=== PATIENT | female | born 1935 | race Caucasian/White ===

== ENCOUNTER 2019-02-11 16:14 | Inpatient (IN) | payer MEDICARE, OTHER ==
[2019-02-11] MEDS ORDERED: SODIUM CHLORIDE 0.9% 1,000 ML IV STA (16:54)
[2019-02-11] MEDS ORDERED: ASPIRIN 81 MG PO STA (16:54)
--- NOTE | 2019-02-11 16:57 | ED ---
General Adult HPI - General Chief complaint: Neuro Symptoms/Deficit Stated complaint: facial droop, rt sided weakness Time Seen by Provider: 02/11/19 16:30 Source: patient Mode of arrival: wheelchair Limitations: no limitations - History of Present Illness Initial comments: Dictation was produced using [employer] dictation software. please excuse any grammatical, word or spelling errors. Chief Complaint: 84-year-old female with no prescription and past medical history presents with strokelike symptoms. History of Present Illness: Chin is an 84-year-old female. She denies any significant comorbidities. She states that she was at home. Approximately 2:45 PM patient noted that she had severe right hand weakness and right facial droop. Her family member came over noted that she had right facial droop. She was also some drooling and dysarthria. There were concerns of stroke so they brought patient to the emergency department while en route to the emergency department she reports that her symptoms completely abated. She denies any history of CVA. Patient feels well at the moment however feels slightly tired. She's been tired over the last 2-3 days. Patient currently denies any neuro deficits. The ROS documented in this emergency department record has been reviewed and confirmed by me. Those systems with pertinent positive or negative responses have been documented in the HPI. All other systems are other negative and/or noncontributory. PHYSICAL EXAM: General Impression: Alert and oriented x3, not in acute distress HEENT: Normocephalic atraumatic, extra-ocular movements intact, pupils equal and reactive to light bilaterally, mucous membranes moist. Cardiovascular: Heart regular rate and rhythm, S1&S2 audible, no murmurs, rubs or gallops Chest: Lungs clear to auscultation bilaterally, no rhonchi, no wheeze, no rales Abdomen: Bowel sounds present, abdomen soft, non-tender, non-distended, no organomegaly Musculoskeletal: Pulses present and equal in all extremities, no peripheral edema Motor: no focal deficits noted Neurological: CN II-XII grossly intact, no focal motor or sensory deficits noted, no aphasia, also dysarthria, mild sales representative rural power weakness to the right hand compared to the left however no right upper extremity drift. Skin: Intact with no visualized rashes Psych: Normal affect and mood ED course: 84-year-old female presents clinical presentation concerning for transient ischemic attack. Patient's NIH currently 0 upon arrival are within acceptable limits. Neuro exam is negative. Patient has ever so slightly discrepancy of sales representative rural power strength in the right compared to the left. Given that patient has NIH of 0 and not reporting any symptoms could stroke is not paged. Stroke workup is ordered.EKG interpretation: Ventricular rate 59, sinus bradycardia, when necessary 136, QS 90, QTC 374. There is significant T-wave inversions noted to the anterior precordial leads. There appears to be some form of heart block. EKG was obtained with concerns for heart block. Cardiolog y was contacted immediately. Discussed patient case with Dr. Murdock who reviewed EKG at bedside. Said he does not appear to be heart block. Laboratory evaluation obtained. Leukocytosis of 13.0 and secondary to stress. Coag panel unremarkable. Metabolic panel shows no acute processes. Urinalysis consistent with urinary tract infection. Computed tomography scan of the head shows no intracranial bleed or any acute intracranial processes. Chest x-ray is nonacute. Patient administered aspirin. She'll be admitted for transient ischemic attack. Patient 1 g of Rocephin for urinary tract infection. Cardiology endorses that patient's EKG is not reflective of a heart block Dr. Murdock had no recommendations. Neurology will consult for transient ischemic attack. Discussed patient case with some physician Dr. Lakhani who is willing to accept admission. - Related Data Home Medications Medication Instructions Recorded Confirmed No Known Home Medications 02/11/19 02/11/19 Allergies Allergy/AdvReac Type Severity Reaction Status Date / Time Sulfa (Sulfonamide Allergy Unknown Verified 02/11/19 17:48 Antibiotics) Review of Systems ROS Statement: Those systems with pertinent positive or pertinent negative responses have been documented in the HPI. ROS Other: All systems not noted in ROS Statement are negative. Past Medical History Past Medical History: No Reported History History of Any Multi-Drug Resistant Organisms: None Reported Past Surgical History: Appendectomy, Hernia Repair, Hysterectomy Past Psychological History: No Psychological Hx Reported Smoking Status: Current every day smoker Past Alcohol Use History: None Reported Past Drug Use History: None Reported General Exam Limitations: no limitations Course Vital Signs 02/11/19 16:21 Temperature 98.3 F Pulse Rate 65 Respiratory 16 Rate Blood Pressure 149/78 O2 Sat by Pulse 93 L Oximetry Medical Decision Making - Lab Data Result diagrams: 02/11/19 16:40 02/11/19 16:40 Lab Results 02/11/19 02/11/19 02/11/19 Range/Units 16:40 16:40 16:40 WBC 13.0 H (3.8-10.6) k/uL RBC 4.88 (3.80-5.40) m/uL Hgb 14.3 (11.4-16.0) gm/dL Hct 45.5 (34.0-46.0) % MCV 93.3 (80.0-100.0) fL MCH 29.3 (25.0-35.0) pg MCHC 31.4 (31.0-37.0) g/dL RDW 13.2 (11.5-15.5) % Plt Count 341 (150-450) k/uL Neutrophils % 82 % Lymphocytes % 5 % Monocytes % 8 % Eosinophils % 2 % Basophils % 0 % Neutrophils # 10.7 H (1.3-7.7) k/uL Lymphocytes # 0.6 L (1.0-4.8) k/uL Monocytes # 1.0 (0-1.0) k/uL Eosinophils # 0.2 (0-0.7) k/uL Basophils # 0.1 (0-0.2) k/uL PT 9.7 (9.0-12.0) sec INR 0.9 (<1.2) APTT 23.5 (22.0-30.0) sec Sodium 139 (137-145) mmol/L Potassium 3.8 (3.5-5.1) mmol/L Chloride 95 L (98-107) mmol/L Carbon Dioxide 32 H (22-30) mmol/L Anion Gap 12 mmol/L BUN 21 H (7-17) mg/dL Creatinine 0.68 (0.52-1.04) mg/dL Est GFR (CKD-EPI)AfAm >90 (>60 ml/min/1.73 sqM) Est GFR (CKD-EPI)NonAf 82 (>60 ml/min/1.73 sqM) Glucose 169 H (74-99) mg/dL Calcium 9.5 (8.4-10.2) mg/dL Total Bilirubin 0.7 (0.2-1.3) mg/dL AST 17 (14-36) U/L ALT 13 (9-52) U/L Alkaline Phosphatase 109 (38-126) U/L Troponin I (0.000-0.034) ng/mL Total Protein 6.6 (6.3-8.2) g/dL Albumin 3.6 (3.5-5.0) g/dL Urine Color Urine Appearance (Clear) Urine pH (5.0-8.0) Ur Specific Cotter (1.001-1.035) Urine Protein (Negative) Urine Glucose (UA) (Negative) Urine Ketones (Negative) Urine Blood (Negative) Urine Nitrite (Negative) Urine Bilirubin (Negative) Urine Urobilinogen (<2.0) mg/dL Ur Leukocyte Esterase (Negative) Urine RBC (0-5) /hpf Urine WBC (0-5) /hpf Ur Squamous Epith Cells (0-4) /hpf Urine Bacteria (None) /hpf Hyaline Casts (0-2) /lpf Urine Mucus (None) /hpf Urine Yeast (Budding) (None) /hpf 02/11/19 02/11/19 Range/Units 16:40 17:45 WBC (3.8-10.6) k/uL RBC (3.80-5.40) m/uL Hgb (11.4-16.0) gm/dL Hct (34.0-46.0) % MCV (80.0-100.0) fL MCH (25.0-35.0) pg MCHC (31.0-37.0) g/dL RDW (11.5-15.5) % Plt Count (150-450) k/uL Neutrophils % % Lymphocytes % % Monocytes % % Eosinophils % % Basophils % % Neutrophils # (1.3-7.7) k/uL Lymphocytes # (1.0-4.8) k/uL Monocytes # (0-1.0) k/uL Eosinophils # (0-0.7) k/uL Basophils # (0-0.2) k/uL PT (9.0-12.0) sec INR (<1.2) APTT (22.0-30.0) sec Sodium (137-145) mmol/L Potassium (3.5-5.1) mmol/L Chloride (98-107) mmol/L Carbon Dioxide (22-30) mmol/L Anion Gap mmol/L BUN (7-17) mg/dL Creatinine (0.52-1.04) mg/dL Est GFR (CKD-EPI)AfAm (>60 ml/min/1.73 sqM) Est GFR (CKD-EPI)NonAf (>60 ml/min/1.73 sqM) Glucose (74-99) mg/dL Calcium (8.4-10.2) mg/dL Total Bilirubin (0.2-1.3) mg/dL AST (14-36) U/L ALT (9-52) U/L Alkaline Phosphatase (38-126) U/L Troponin I <0.012 (0.000-0.034) ng/mL Total Protein (6.3-8.2) g/dL Albumin (3.5-5.0) g/dL Urine Color Yellow Urine Appearance Cloudy H (Clear) Urine pH 6.0 (5.0-8.0) Ur Specific Cotter 1.015 (1.001-1.035) Urine Protein 1+ H (Negative) Urine Glucose (UA) Negative (Negative) Urine Ketones Negative (Negative) Urine Blood Moderate H (Negative) Urine Nitrite Negative (Negative) Urine Bilirubin Negative (Negative) Urine Urobilinogen 3.0 (<2.0) mg/dL Ur Leukocyte Esterase Large H (Negative) Urine RBC 17 H (0-5) /hpf Urine WBC >182 H (0-5) /hpf Ur Squamous Epith Cells 7 H (0-4) /hpf Urine Bacteria Moderate H (None) /hpf Hyaline Casts 1 (0-2) /lpf Urine Mucus Rare H (None) /hpf Urine Yeast (Budding) Rare H (None) /hpf Disposition Clinical Impression: Transient cerebral ischemia, UTI (urinary tract infection), Abnormal EKG Disposition: ADMITTED IP TO THIS [facility] Condition: Fair Referrals: None,Stated [Primary Care Provider] - 1-2 days Time of Disposition: 19:10 Decision Time: 19:10
[2019-02-11 17:09] LABS: Basophils # (A) 0.1 k/uL (0-0.2); Basophils % (A) 0 %; Eosinophils # (A) 0.2 k/uL (0-0.7); Eosinophils % (A) 2 %; HCT 45.5 % (34.0-46.0); HGB 14.3 gm/dL (11.4-16.0); Lymphocytes # (A) 0.6 k/uL (1.0-4.8); Lymphocytes % (A) 5 %; MCH 29.3 pg (25.0-35.0); MCHC 31.4 g/dL (31.0-37.0); MCV 93.3 fL (80.0-100.0); Mean Platelet Volume 7.5; Monocytes % (A) 8 %; Neutrophils # (A) 10.7 k/uL (1.3-7.7); Neutrophils % (A) 82 %; Platelet Count 341 k/uL (150-450); RBC 4.88 m/uL (3.80-5.40); RDW 13.2 % (11.5-15.5)
[2019-02-11 17:18] LABS: INR 0.9 (<1.2); Partial Thromboplastin Time 23.5 sec (22.0-30.0); Prothrombin Time 9.7 sec (9.0-12.0)
[2019-02-11 17:23] LABS: ALT 13 U/L (9-52); AST 17 U/L (14-36); African American GFR (CKD) >90 (>60 ml/min/1.73 sqM); Albumin 3.6 g/dL (3.5-5.0); Alkaline Phosphatase 109 U/L (38-126); Anion Gap 12 mmol/L; Blood Urea Nitrogen 21 mg/dL (7-17); Calcium 9.5 mg/dL (8.4-10.2); Carbon Dioxide 32 mmol/L (22-30); Chloride 95 mmol/L (98-107); Glucose 169 mg/dL (74-99); Potassium 3.8 mmol/L (3.5-5.1); Sodium 139 mmol/L (137-145); Total Bilirubin 0.7 mg/dL (0.2-1.3); Total Protein 6.6 g/dL (6.3-8.2)
--- NOTE | 2019-02-11 17:41 | CT ---
EXAMINATION TYPE: CT brain wo con DATE OF EXAM: 02/11/2019 COMPARISON: None HISTORY: 84-year-old female Right hand numbness and facial droop. TECHNIQUE: Examination was done in axial plane without intravenous contrast. Coronal and sagittal r econstructions performed. CT DLP: 1102.4 mGycm Automated exposure control for dose reduction was used. FINDINGS: There is no evidence of acute intracranial hemorrhage, acute ischemic changes, mass, mass-effect, or extra-axial fluid collection. There is no effacement of cerebral sulci or basal subarachnoid cister ns. There is no hydrocephalus. There is no midline shift. Stovall-white matter distinction is preserv ed. Moderate bifrontal atrophy. Paranasal sinuses show mild mucosal thickening ethmoid air cells. Mastoid air cells well pneumatized. Orbits and globes are intact. IMPRESSION: Moderate bifrontal atrophy. No acute intracranial abnormality seen.
[2019-02-11 17:59] LABS: Appearance,Urine Cloudy (Clear); Bacteria,Urine Moderate /hpf; Bilirubin,Urine Negative (Negative); Blood,Urine Moderate (Negative); Budding Yeast,Urine Rare /hpf; Color,Urine Yellow; Glucose,Urine (UA) Negative (Negative); Hyaline Casts,Urine 1 /lpf (0-2); Ketones,Urine Negative (Negative); Leukocyte Esterase,Urine Large (Negative); Mucus,Urine Rare /hpf; Nitrite,Urine Negative (Negative); Protein,Urine 1+ (Negative); RBC,Urine 17 /hpf (0-5); Specific Gravity,Urine 1.015 (1.001-1.035); Squamous Epithelial Cell,Urine 7 /hpf (0-4)
--- NOTE | 2019-02-11 18:10 | XR ---
EXAMINATION TYPE: XR chest 2V DATE OF EXAM: 02/11/2019 COMPARISON: None HISTORY: 84 year-old female altered mental status, right-sided weakness TECHNIQUE: AP and lateral views FINDINGS: Heart borderline enlarged. Hyperinflation. No consolidation or pleural effusion seen. IMPRESSION: Borderline heart size and COPD. No acute process seen.
[2019-02-11] MEDS ORDERED: ASPIRIN 325 MG TAB PO STA (19:05)
[2019-02-11 21:12] VITALS: BMI 23.2
--- NOTE | 2019-02-11 21:57 | P.HPIM ---
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 Denies any associated headache dizziness lightheadedness changes in vision or hearing denies any associated chest pain or trouble breathing denies any associated palpitations. She never experienced anything like this denies any history of stroke. Family concerned regarding a stroke. Drove her to the hospital and Route her symptoms resolved within 20 minutes. In the ED she was completely asymptomatic and NIH score was 0 code stroke was not activated. Patient admitted for TIA further workup EKG in the ED was concerning for variable degree AV block however cardiology evaluated the EKG and the patient at bedside with no recommendations for any immediate intervention. We will do further workup for sinus arrhythmia. Computed tomography scan of the head was negative for any acute process chest x- ray was negative for any acute process Review of Systems Pertinent positives as noted in HPI. All other systems were reviewed and are negative Past Medical History Past Medical History: No Reported History History of Any Multi-Drug Resistant Organisms: None Reported Past Surgical History: Appendectomy, Hernia Repair, Hysterectomy Past Psychological History: No Psychological Hx Reported Smoking Status: Current every day smoker Past Alcohol Use History: None Reported Past Drug Use History: None Reported - Past Family History Mother Family Medical History: Cancer Father Family Medical History: Cancer Medications and Allergies Home Medications Medication Instructions Recorded Confirmed Type No Known Home Medications 02/11/19 02/11/19 History Allergies Allergy/AdvReac Type Severity Reaction Status Date / Time Sulfa (Sulfonamide Allergy Unknown Verified 02/11/19 17:48 Antibiotics) Physical Exam Vitals: Vital Signs Temp Pulse Resp BP Pulse Ox 02/11/19 19:30 98.8 F 71 30 H 118/73 91 L 02/11/19 16:21 98.3 F 65 16 149/78 93 L Intake and Output 02/11/19 02/11/19 02/11/19 06:59 14:59 22:59 Other: Weight 52.163 kg Constitutional: No acute distress, conversant, pleasant Eyes: Anicteric sclerae, moist conjunctiva, no lid-lag Pupils equal round reactive to light ENMT: NC/AT Oropharynx clear, no erythema, exudates Neck: Supple, FROM, no masses, or JVD No carotid bruits No thyromegaly Lungs: Clear to auscultation Clear to percussion Normal respiratory effort, no accessory muscle use Cardiovascular: Heart irregular rhythm No murmurs, gallops, or rubs No peripheral edema Abdominal: Soft Nontender, no guarding, rebound or rigidity Abdomen moving with respiration Normoactive bowel sounds No hepatomegaly, No splenomegaly No palpable mass No abdominal wall hernia noted Skin: Normal temperature, tone, texture, turgor No induration No subcutaneous nodules No rash, lesions No ulcers Extremities: No digital cyanosis No clubbing Pedal pulses intact and symmetrical Radial pulses intact and symmetrical No calf tenderness Psychiatric: Alert and oriented to person, place and time Appropriate affect fair judgment Neuro Muscles Strength 5/5 in all 4 extremities Sensation to light touch grossly present throughout Cranial nerves II-XII grossly intact No focal sensory deficits cerebellar exam,finger-nose, heel mays, both intact Lymphatics: no palpable cervical or supraclavicular , or inguinal lymph nodes Results CBC & Chem 7: 02/11/19 16:40 02/11/19 16:40 Labs: Abnormal Lab Results - Last 24 Hours (Table) 02/11/19 02/11/19 02/11/19 Range/Units 16:40 16:40 17:45 WBC 13.0 H (3.8-10.6) k/uL Neutrophils # 10.7 H (1.3-7.7) k/uL Lymphocytes # 0.6 L (1.0-4.8) k/uL Chloride 95 L (98-107) mmol/L Carbon Dioxide 32 H (22-30) mmol/L BUN 21 H (7-17) mg/dL Glucose 169 H (74-99) mg/dL Urine Appearance Cloudy H (Clear) Urine Protein 1+ H (Negative) Urine Blood Moderate H (Negative) Ur Leukocyte Esterase Large H (Negative) Urine RBC 17 H (0-5) /hpf Urine WBC >182 H (0-5) /hpf Ur Squamous Epith Cells 7 H (0-4) /hpf Urine Bacteria Moderate H (None) /hpf Urine Mucus Rare H (None) /hpf Urine Yeast (Budding) Rare H (None) /hpf Assessment and Plan Assessment: 84-year-old female with no significant past medical history patient doesn't see a doctor, admitted as an inpatient with anticipated length of stay more than 48 hours for TIA for neurologic evaluation and workup. Patient also was suspected to have complete heart block however cleared by cardiology she seems to be having sinus arrhythmia for further workup Plan: TIA Aspirin, statin Neurochecks Fall precautions PTOT evaluation Neuro evaluation Stroke workup, carotid ultrasound, TSH, lipid profile, A1c, echocardiogram abnormal EKG Initial thought was third degree or variable AV block however cardiology cleared the patient seems like the patient having sinus arrhythmia Await further cardiology recommendations Cardiac monitoring Check electrolytes DVT prophylaxis mechanical due to TIA Patient is no code Her sons are surrogate decision makers Anticipated discharge in 48 hours, to home Preformed a thorough record review from recent hospitalization A total of 60 minutes was spent on the care of this complex patient more than 50% of the time was spent in counseling and care coordination.
[2019-02-11] MEDS ORDERED: ATORVASTATIN 20 MG TAB PO SCH (22:00)
[2019-02-11] MEDS: SODIUM CHLORIDE 0.9% 1,000 ML IV SCH (22:54)
[2019-02-12] MEDS ORDERED: HEPARIN SODIUM,PORCINE 5,000 UNIT/ML 1 ML VIAL SQ SCH
[2019-02-12 07:35] LABS: Basophils # (A) 0.1 k/uL (0-0.2); Basophils % (A) 1 %; Eosinophils # (A) 0.1 k/uL (0-0.7); Eosinophils % (A) 1 %; HGB 12.9 gm/dL (11.4-16.0); Lymphocytes # (A) 0.7 k/uL (1.0-4.8); Lymphocytes % (A) 7 %; MCH 29.4 pg (25.0-35.0); MCHC 31.6 g/dL (31.0-37.0); MCV 93.2 fL (80.0-100.0); Mean Platelet Volume 7.7; Monocytes # (A) 1.2 k/uL (0-1.0); Monocytes % (A) 12 %; Neutrophils # (A) 8.1 k/uL (1.3-7.7); Neutrophils % (A) 77 %; Platelet Count 300 k/uL (150-450); RBC 4.39 m/uL (3.80-5.40); RDW 13.3 % (11.5-15.5); WBC 10.4 k/uL (3.8-10.6)
[2019-02-12 07:47] LABS: ALT 16 U/L (9-52); AST 14 U/L (14-36); African American GFR (CKD) >90 (>60 ml/min/1.73 sqM); Alkaline Phosphatase 85 U/L (38-126); Anion Gap 5 mmol/L; Blood Urea Nitrogen 16 mg/dL (7-17); Calcium 8.8 mg/dL (8.4-10.2); Carbon Dioxide 35 mmol/L (22-30); Chloride 102 mmol/L (98-107); Cholesterol 136 mg/dL (<200); Glucose 112 mg/dL (74-99); HDL Cholesterol 28 mg/dL (40-60); LDL Cholesterol,Calculated 85 mg/dL (0-99); Phosphorus 3.3 mg/dL (2.5-4.5); Sodium 142 mmol/L (137-145); Total Bilirubin 0.5 mg/dL (0.2-1.3); Total Protein 5.7 g/dL (6.3-8.2); Triglycerides 117 mg/dL (<150)
--- NOTE | 2019-02-12 08:42 | US ---
EXAMINATION TYPE: US carotid duplex BILAT DATE OF EXAM: 02/12/2019 COMPARISON: NONE CLINICAL HISTORY: tia. EXAM MEASUREMENTS: RIGHT: Peak Systolic Velocity (PSV) cm/sec ----- Right CCA: 61.2 ----- Right ICA: 148.5 ----- Right ECA: 78.1 ICA/CCA ratio: 2.4 RIGHT: End Diastole cm/sec ----- Right CCA: 16.8 ----- Right ICA: 39.3 ----- Right ECA: 5.1 LEFT: Peak Systolic Velocity (PSV) cm/sec ----- Left CCA: 51.5 ----- Left ICA: 132.2 ----- Left ECA: 93.5 ICA/CCA ratio: 2.6 LEFT: End Diastole cm/sec ----- Left CCA: 19.2 ----- Left ICA: 46.2 ----- Left ECA: 17.6 VERTEBRALS (direction of flow): Right Vertebral: Antegrade Left Vertebral: Antegrade Rhythm: Arrhythmia Very tortuous ICA's bilaterally. Mild atherosclerotic changes noted. IMPRESSION: 1. 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 CTA could more accurately assess the deg ree of stenosis. 2. Cardiac arrhythmia is incidentally seen. Correlate with EKG. Criteria for Assigning % of Stenosis / Diameter reduction (Estimation based on the indirect measurements of the internal carotid artery velocities (ICA PSV). 1. Normal (no stenosis)=ICA PSV < 125 cm/s: ratio < 2.0: ICA EDV<40 cm/s. 2. Less than 50% stenosis=ICA PSV < 125 cm/s: ratio < 2.0: ICA EDV<40 cm/s. 3. 50 to 69% stenosis=ICA PSV of 125 to 230 cm/s: ration 2.0 ? 4.0: ICA EDV 40-100 cm/s. 4. Greater than 70% stenosis to near occlusion= ICA PSV > 230 cm/s: ratio > 4.0: ICA EDV > 100 cm/s. 5. Near occlusion= ICA PSV velocities may be low or undetectable: variable ratio and ICA EDV. 6. Total occlusion=unable to detect flow.
--- NOTE | 2019-02-12 09:19 | CONS ---
CONSULTATION This is an 84-year-old female patient there was admitted for stroke-like symptoms. An 84-year-old female who was lying in bed yesterday. It was a birthday. When her son came into the house, she got out of bed and he noticed that she has some right facial drooping and that his speech was a bit garbled. She was able to understand her son and her son asked her to take her birthday card and open the envelope. She could not open the envelope with an envelope outsoles channel opener. The envelope outsoles channel opener dropped to the floor, she bent down to pick it up and could not pick it up. She was not unsteady. She was not lightheaded. No shortness of breath. No dizziness. No loss of consciousness. She had no weakness in the right leg. The only weakness she experienced was in her right arm. Her symptoms of slurred speech, facial drooping and right arm weakness lasted for about 20 minutes and then spontaneously resolved. This is the first time she has experienced such an event. She had no cardiac symptoms at that time. When she came to the ER, her first 12-lead ECG showed sinus rhythm with a baseline IL interval that is normal, but with a 2-1 conduction. While most P waves track and this is a 2-1 conduction with right bundle branch block aberrancy, there are PACs also (blocked PACs). Later a second EKG shows sinus rhythm with AV node Wenckebach block with a left bundle branch block pattern with a rate of 71 beats per minute. The first EKG had a rate of 59 beats per minute. This is not consistent with third-degree heart block as was originally thought. This lady has not seen a physician for many years. PAST HISTORY: She has no past medical history of diabetes, hypertension, or dyslipidemia. She does not take any medications at home. At this point she is on 325 of aspirin. I would changed that to 81, Allopurinol 20 mg p.o. daily, I would change that to 40. At this time she is on 20 of atorvastatin which I would change to 40 mg and she is getting IV antibiotics. REVIEW OF SYSTEMS: No fever, chills, or rigors. No cough or expectoration. No nausea, vomiting, or diarrhea. No hematuria or dysuria. She did have stroke-like symptoms for about 20 minutes, index TIA, which resolved. No hematuria, dysuria. No musculoskeletal complaints. She is lying comfortably in bed. She underwent a 2D echo and I reviewed the images. The preliminary assessment is that her LV function is quite normal. She has mild tricuspid regurgitation. PHYSICAL EXAMINATION: Her blood pressure is 125/68 mmHg. When she came in, it was 149/78 mmHg. Heart rate 70s to 80s at this time. She has . She is afebrile. Head and neck examination is normal. No carotid bruits. No JVD. No orthopnea. Heart sounds S1, S2 are normal. No murmurs, no gallop, no rub. Breath sounds are reduced bilaterally with reduced respiratory effort but normal. Abdomen is soft, nontender. Extremities are warm. She is alert, oriented and gives a detailed history. Mental status appears completely normal. She is a very pleasant lady. IMPRESSION: 1. An 84-year-old female presenting with transient ischemic attack with fall/stroke- like symptoms that resolved within 20 minutes and associated with specifically right arm weakness and facial drooping with some slurred speech. 2. 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 SUGGEST: 1. First, her primary diagnosis, she should be a CVA and should she should be worked up for TIA. I do not see any atrial fibrillation. I do not hear any carotid bruits. I would reduce her aspirin to 81 mg p.o. daily, increase the dose of atorvastatin to 40 mg p.o. daily, get a lipid panel. I reviewed her labs and labs are normal. She has normal potassium. The LDL is 85, HDL is 28. 2. She has evidence of conduction system disease with 2:1 AV block as well as AV node Wenckebach block around the time and she was experiencing TIA-like symptoms. Currently, she is in sinus rhythm with 1:1 conduction at 81 beats per minute. 3. Her potassium is normal. Other than her TIA-like symptoms, she has no other triggering factors for bradyarrhythmia. 4. This lady should be been worked up from a neurologic standpoint carefully for TIA and from a conduction system standpoint, I do not see any need for permanent pacing at this point, but she needs to be monitored and if she develops any sudden bradycardia, and develops 2:1 heart block once again with significant bradycardia, then she should undergo permanent pacing. She should continued to be monitored. If she has no further evidence of bradycardia, then I would at the least implant a loop monitor to look for silent episodes of atrial fibrillation as well as to monitor the conduction system because she blocks a left bundle, heart rates in the 70s and blocks a right bundle and heart rates in the 50s and she has evidence of AV node disease. MMODL / IJN: [id number] /
--- NOTE | 2019-02-12 10:52 | ECHOF ---
Referral Reason:tia MEASUREMENTS -------- HEIGHT: 149.9 cm WEIGHT: 50.8 kg BP: 154/69 RVIDd: 3.5 cm (< 3.3) IVSd: 1.1 cm (0.6 - 1.1) LVIDd: 3.5 cm (3.9 - 5.3) LVPWd: 1.1 cm (0.6 - 1.1) IVSs: 1.5 cm LVIDs: 2.6 cm LVPWs: 1.8 cm LA Diam: 3.1 cm (2.7 - 3.8) LAESV Index (A-L): 25.11 ml/m Ao Diam: 3.5 cm (2.0 - 3.7) AV Cusp: 1.9 cm (1.5 - 2.6) MV EXCURSION: 9.436 mm (> 18.000) MV EF SLOPE: 83 mm/s (70 - 150) EPSS: 0.5 cm MV E Tyrone: 0.61 m/s MV DecT: 263 ms MV A Tyrone: 0.91 m/s MV E/A Ratio: 0.67 RAP: 5.00 mmHg RVSP: 41.64 mmHg FINDINGS -------- Sinus rhythm. This was a technically adequate study. The left ventricular size is normal. There is borderline concentric left ventricular hypertrophy. Overall left ventricular systolic function is normal with, an EF between 60 - 65 %. The right ventricle is mildly enlarged. Normal LA size by volume 22+/-6 ml/m2. The right atrium is normal in size. Aneurysmal Interatrial septum. The aortic valve was not well visualized. Bicuspid valve cannot be excluded. May consider RISA if c linically indicated Mild mitral regurgitation is present. Zanh-gt-mylmizdt tricuspid regurgitation present. There is mild pulmonary hypertension. The right ventricular systolic pressure, as measured by Doppler, is 41.64mmHg. There is no pulmonic regurgitation present. The aortic root size is normal. Normal inferior vena cava with normal inspiratory collapse consistent with estimated right atrial pre ssure of 5 mmHg. There is no pericardial effusion. CONCLUSIONS -------- 1. Sinus rhythm. 2. This was a technically adequate study. 3. The left ventricular size is normal. 4. There is borderline concentric left ventricular hypertrophy. 5. Overall left ventricular systolic function is normal with, an EF between 60 - 65 %. 6. The right ventricle is mildly enlarged. 7. Normal LA size by volume 22+/-6 ml/m2. 8. The right atrium is normal in size. 9. Aneurysmal Interatrial septum. 10. The aortic valve was not well visualized. 11. Bicuspid valve cannot be excluded. May consider IRSA if clinically indicated 12. Mild mitral regurgitation is present. 13. Dgmn-ia-skxmwcaf tricuspid regurgitation present. 14. There is mild pulmonary hypertension. 15. The right ventricular systolic pressure, as measured by Doppler, is 41.64mmHg. 16. There is no pulmonic regurgitation present. 17. The aortic root size is normal. 18. Normal inferior vena cava with normal inspiratory collapse consistent with estimated right atrial pressure of 5 mmHg. 19. There is no pericardial effusion. PARTITION ASSEMBLER: Mandy Ferreira RDCS
--- NOTE | 2019-02-12 11:20 | P.PN ---
Subjective Progress Note Date: 02/12/19 Patient seen and examined at bedside with granddaughter and daughter present. Patient will apparently lives at home and is able to ambulate unassisted, denies any previous significant medical history and was only taking Aleve for arthritis at home. Reports that her symptoms of facial droop have not recurred, denies any lightheadedness, denies dizziness, denies blurry vision, denies syncope or presyncope, Denies chest pain and shortness of breath. No acute events overnight Objective - Vital Signs Vital signs: Vital Signs Temp 98.2 F 02/12/19 08:00 Pulse 95 02/12/19 08:00 Resp 18 02/12/19 08:00 BP 165/80 02/12/19 08:00 Pulse Ox 94 L 02/12/19 08:00 Intake & Output 02/11/19 02/12/19 02/12/19 18:59 06:59 18:59 Intake Total 100 30 Balance 100 30 Weight 52.163 kg 51.2 kg Intake: Intake, IV Titration 100 Amount Sodium Chloride 0.9% 1, 100 000 ml @ 50 mls/hr IV . Q20H STA Rx#:[id number] Oral 30 Other: Voiding Method Toilet # Voids 1 - Exam Constitutional: No acute distress, conversant, pleasant Eyes: Anicteric sclerae, moist conjunctiva, no lid-lag, PERRLA ENMT: NC/AT,Oropharynx clear, no erythema, exudates Neck:Supple, FROM, no masses, or JVD, No carotid bruits; No thyromegaly Lungs: Clear to auscultation, Clear to percussion, Normal respiratory effort, no accessory muscle use Cardiovascular: Heart regular in rate and rhythm, No murmurs, gallops, or rubs no peripheral edema Abdominal: Soft Nontender, nom distended, no guarding, no rebound or rigidity, Normoactive bowel sounds No hepatomegaly, No splenomegaly, No palpable mass No abdominal wall hernia noted Skin: Normal temperature, tone, texture, turgor, No induration No subcutaneous nodules, No rash, lesions, No ulcers Extremities:No digital cyanosis No clubbing, Pedal pulses intact and symmetrical Radial pulses intact and symmetrical Normal gait and station, No calf tenderness Psychiatric: Alert and oriented to person, place and time, Appropriate affect Intact judgement Neuro: Muscles Strength 5/5 in all 4 extremities, Sensation to light touch grossly present throughout, Cranial nerves II-XII grossly intact. No focal sensory deficits - Labs CBC & Chem 7: 02/12/19 07:07 02/12/19 07:07 Labs: Abnormal Lab Results - Last 24 Hours (Table) 02/11/19 02/11/19 02/11/19 Range/Units 16:40 16:40 17:45 WBC 13.0 H (3.8-10.6) k/uL Neutrophils # 10.7 H (1.3-7.7) k/uL Lymphocytes # 0.6 L (1.0-4.8) k/uL Monocytes # (0-1.0) k/uL Chloride 95 L (98-107) mmol/L Carbon Dioxide 32 H (22-30) mmol/L BUN 21 H (7-17) mg/dL Glucose 169 H (74-99) mg/dL Total Protein (6.3-8.2) g/dL Albumin (3.5-5.0) g/dL HDL Cholesterol (40-60) mg/dL Urine Appearance Cloudy H (Clear) Urine Protein 1+ H (Negative) Urine Blood Moderate H (Negative) Ur Leukocyte Esterase Large H (Negative) Urine RBC 17 H (0-5) /hpf Urine WBC >182 H (0-5) /hpf Ur Squamous Epith Cells 7 H (0-4) /hpf Urine Bacteria Moderate H (None) /hpf Urine Mucus Rare H (None) /hpf Urine Yeast (Budding) Rare H (None) /hpf 02/12/19 02/12/19 Range/Units 07:07 07:07 WBC (3.8-10.6) k/uL Neutrophils # 8.1 H (1.3-7.7) k/uL Lymphocytes # 0.7 L (1.0-4.8) k/uL Monocytes # 1.2 H (0-1.0) k/uL Chloride (98-107) mmol/L Carbon Dioxide 35 H (22-30) mmol/L BUN (7-17) mg/dL Glucose 112 H (74-99) mg/dL Total Protein 5.7 L (6.3-8.2) g/dL Albumin 3.0 L (3.5-5.0) g/dL HDL Cholesterol 28 L (40-60) mg/dL Urine Appearance (Clear) Urine Protein (Negative) Urine Blood (Negative) Ur Leukocyte Esterase (Negative) Urine RBC (0-5) /hpf Urine WBC (0-5) /hpf Ur Squamous Epith Cells (0-4) /hpf Urine Bacteria (None) /hpf Urine Mucus (None) /hpf Urine Yeast (Budding) (None) /hpf Microbiology - Last 24 Hours (Table) 02/11/19 17:45 Urine Culture - Preliminary Urine,Clean Catch Assessment and Plan (1) Transient cerebral ischemia Narrative/Plan: * CT of the head showing moderate bifrontal atrophy with no acute intracranial abnormality * Echocardiogram showing preserved LVEF of 60-65%, carotid Dopplers showing stenosis of bilateral ICAs 50-69% * Continue aspirin and statin therapy * Current Visit: Yes Status: Acute Code(s): G45.9 - TRANSIENT CEREBRAL ISCHEMIC ATTACK, UNSPECIFIED SNOMED Code(s): 881735290 (2) UTI (urinary tract infection) Narrative/Plan: * Patient continued on Rocephin, urine cultures are pending Current Visit: Yes Status: Acute Code(s): N39.0 - URINARY TRACT INFECTION, S ITE NOT SPECIFIED SNOMED Code(s): 63446007 (3) Atrioventricular conduction disorder Narrative/Plan: * Previous EKG consistent with a 2-1 AV block with a right bundle branch block pattern * Now resolved currently in sinus rhythm, currently no reason for pacemaker placement * Cardiology recommending continue telemetry monitoring for now Current Visit: Yes Status: Acute Code(s): I45.89 - OTHER SPECIFIED CONDUCTION DISORDERS SNOMED Code(s): 931555140 (4) Elevated blood-pressure reading without diagnosis of hypertension Narrative/Plan: * Continue to monitor DC IV fluids Current Visit: Yes Status: Acute Code(s): R03.0 - ELEVATED BLOOD-PRESSURE READING, W/O DIAGNOSIS OF HTN SNOMED Code(s): 435238407 (5) Carotid disease, bilateral Narrative/Plan: * Check CT angiography of the neck Current Visit: Yes Status: Acute Code(s): I77.9 - DISORDER OF ARTERIES AND ARTERIOLES, UNSPECIFIED SNOMED Code(s): 321856827
[2019-02-12 14:59] LABS: Hemoglobin A1C 6.9 % (4.0-6.0)
--- NOTE | 2019-02-12 15:20 | CT ---
EXAMINATION TYPE: CT angio neck DATE OF EXAM: 02/12/2019 COMPARISON: Correlation ultrasound 02/12/2019 HISTORY: 84-year-old female carotid disease TECHNIQUE: Contiguous axial scanning of the neck performed with IV Contrast, patient injected with 50 mL of Isovue 370. Coronal/sagittal MIP reconstructions performed. 3-D reconstructions generated on a dedicated independent workstation. CT DLP: 240.5 mGycm Automated exposure control for dose reduction was used. FINDINGS: Emphysema in the visualized upper lungs. Mild atherosclerotic arch calcifications. Bovine configuration to the aortic arch. The brachiocephalic artery and right common carotid artery are patent. Mild atherosclerotic calcification and mural-based plaque in the right carotid bulb without a signifi cant narrowing. There is focal tortuosity of the mid ICA with 2 hairpin loops, the first loop extendi ng into the retropharyngeal region. The remainder of the right ICA is patent. The left common and internal carotid arteries are patent. There is a single hairpin loop of the mid I CA directed posteriorly with some focal kinking at the proximal 90 degree turn. The remainder of the left ICA remains patent. The left vertebral artery is dominant. Both vertebral arteries appear patent throughout their course. The V4 segment right vertebral artery becomes hypoplastic after the PICA takeoff. Moderate spondylotic change mid cervical spine were reversal of the normal cervical lordosis. IMPRESSION: 1. NO HEMODYNAMICALLY SIGNIFICANT PROXIMAL ICA STENOSIS ON EITHER SIDE. 2. 2 HAIRPIN LOOPS OF THE MID RIGHT ICA. THE FIRST LOOP EXTENDS TO HAVE A RETROPHARYNGEAL COURSE. 3. SINGLE HAIRPIN LOOP OF THE MID LEFT ICA. THERE IS SOME FOCAL KINKING AT THE PROXIMAL 90 DEGREE TUR N THAT COULD POTENTIALLY RESULT IN A MODERATE FOCAL NARROWING. NO SIGNIFICANT ATHEROSCLEROTIC DISEASE HERE. 4. THE TORTUOUS COURSE OF THE VESSELS LIKELY RESULTS IN TURBULENT FLOW ACCOUNTING FOR THE ELEVATED VE LOCITIES ON ULTRASOUND. 5. DOMINANT LEFT VERTEBRAL ARTERY. THE V4 SEGMENT RIGHT VERTEBRAL ARTERY BECOMES HYPOPLASTIC AFTER TH E PICA TAKEOFF. 6. COPD.
[2019-02-12] MEDS ORDERED: ASPIRIN 325 MG TAB PO SCH (19:07)
[2019-02-12] MEDS ORDERED: ATORVASTATIN 40 MG TAB PO SCH (21:00)
--- NOTE | 2019-02-12 22:10 | CONS ---
CONSULTATION DATE OF SERVICE: 02/12/2019 HISTORY OF PRESENT ILLNESS: Thank you for allowing me to evaluate Jazmin Sandoval, who is an 84-year-old right-handed white female who presented to [facility] on 02/11/2017 (the patient's [birth year]) for evaluation of an episode of right-sided weakness and dysarthria. The patient states that her son came over at 3:45 p.m. and noted the patient was not "talking right." She states her speech was slurred, but comprehension was maintained. He gave her her card and she was having difficulty picking up the card with her right hand. Her son also noted a right facial droop. They decided to bring the patient to the hospital for further evaluation and treatment, and en route to the hospital within 20 minutes of onset, the symptoms resolved. The patient has never had similar symptoms in the past. She had no associated headache, loss of consciousness, vertigo, diplopia, difficulty chewing/swallowing or focal numbness involving the extremities. There was no focal weakness of the right lower extremity and left side was asymptomatic. The patient was not taking aspirin or other anti-platelet/anticoagulant medication at the time of this event. At this time, the patient states she feels "good" and is anxious to go home. The patient states she has been up walking and is back to baseline. She has not seen a doctor in 40 years and was not taking any home medication at the time of this presentation. ALLERGIES: SULFA. HOME MEDICATIONS: None. PAST MEDICAL HISTORY: Tobacco abuse. PAST SURGICAL HISTORY: 1. Hysterectomy. 2. Appendectomy. 3. Bilateral cataract extraction. SOCIAL HISTORY: The patient smokes 10 cigarettes per day and has smoked since she was 18 years of age. She denied alcohol or drug use. She is a with 3 children and lives in a house by herself. She has not been using any assistive devices to ambulate at home and does continue to drive. FAMILY HISTORY: Patient's parents are . Both had a history of cancer. The patient does not know the primary source of either one. There is no family history of epilepsy, Parkinson's or other neurologic disease. REVIEW OF SYSTEMS: Fourteen systems are reviewed and no additional points are identified. The review of systems is documented in history and physical. PHYSICAL EXAMINATION: Upon my arrival in the patient's room, she was lying in bed, receptive to the examiner. Affect is mildly anxious. Her daughter is at the bedside. The patient is of thin build and appears stated age. Voice is raspy. VITAL SIGNS: Blood pressure is 162/79 with a pulse of 68, respiratory rate 18, temperature 98.2. Weight is 51.2 kg on a 4-foot 11-inch frame. SKIN AND EXTREMITIES: Arthritic changes are noted in the hands. HEAD AND NECK: No signs of trauma. Neck is supple without meningeal signs. Arteries are nontender and without bruits. HEART: Regular rate and rhythm. HIGHER CORTICAL FUNCTION: MENTAL STATUS: Patient was alert, oriented to self. She knew she was in [facility]. She knew the floor, city, year, month, day of week and could name the current president. She was able to name, repeat and read. There was no left and right disorientation, finger-nose extinction to double simultaneous stimulation or dysarthria. CRANIAL NERVES II THROUGH XII: II: Pupils are post-surgical and reactive to light symmetrically. No afferent pupillary defect. Visual lyle are intact to confrontation. III, IV, : No ptosis. Extraocular movements are full. No nystagmus. V: Pinprick, light touch intact in all 3 divisions. Motor 5 intact. VII: No facial asymmetry or weakness. Acuity intact to finger rub. IX, X: Palate neftaly in the midline. Dentition is poor. XI: Trapezius strength intact. XII: Tongue protruded midline without fasciculation or atrophy. MOTOR EXAMINATION: There is no pronator drift. There is mildly reduced bulk in the hand intrinsic muscles with normal tone and no involuntary movements are noted. Strength is 5/5 throughout except at the interossei, which are 4+/5 bilaterally. Sensory intact to pinprick, light touch in all extremities. Reflexes: Right side listed first: biceps 2,2; brachioradialis 1,1; triceps 2.2; patella 1,1; ankle 0,0. Plantar response is flexor bilaterally. Lugo's is absent. COORDINATION: Oonool-sg-ssmb, xvdg-kn-zzzf movements are intact. Rapid alternating movements are symmetric with finger tapping. DIAGNOSTIC TESTING: Patient had a CT scan of the brain completed without contrast in the emergency room which demonstrated atrophy, but no acute pathology was identified. Chest x-ray revealed no acute pathology. LAB WORK: Lab work demonstrates white blood cell count of 10.4 with a hemoglobin of 12.9, platelet count 300. Sodium 142, potassium 4.0, BUN 16 with a creatinine of 0.69, calcium 8.8, magnesium 2.0, ALT 16, AST 14, INR 0.9. Troponin negative. Cholesterol 136 and LDL of 85, HDL of 38. TSH within normal limits. Urinalysis revealed large leukocyte esterase, greater than 182 WBCs, 17 RBCs, negative nitrate. Carotid ultrasound from 02/12/2019 demonstrated 50% ti 69% stenosis of both internal carotid arteries and antegrade flow in the vertebral arteries. Echocardiogram from 02/12/2019 demonstrated ejection fraction of 60% to 65% with normal left atrial/left ventricular size and an aneurysmal intra-atrial septum. IMPRESSION: 1. Transient right face/arm weakness with dysarthria, likely secondary to a left hemisphere transient ischemic attack. The episode lasted 20 minutes and resolved. Current neurologic examination is nonfocal. The etiology of this event may be secondary to cardioembolic phenomenon versus large-vessel atherosclerotic disease. The patient's risk factors for stroke include tobacco abuse and age. The patient was not on aspirin or other anti-platelet/anticoagulant medication at the time of this event. 2. Carotid occlusive disease of 50% to 69% bilaterally per ultrasound. 3. Aneurysmal intra-atrial septum per transthoracic echocardiogram. Rule out shunt. 4. 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 5. Urinary tract infection. 6. The patient has not seen a physician in 40 years. RECOMMENDATIONS: 1. I discussed my impression and plan with the patient and her daughter and they expressed understanding. 2. Agree with pursuing CTA of the neck vessels and will obtain transesophageal echocardiogram. Cardiology note reflects that they plan to pursue a loop recorder if there is no need for a pacemaker. 3. Agree with aspirin/Lipitor. 4. Risk factor modification. Would strongly recommend the patient quit smoking!! 5. CT of the brain demonstrated no acute pathology. 6. Treatment of urinary tract infection per primary service. 7. Will follow with you. MMODL / IJN: [id number] /
[2019-02-13 02:09] VITALS: RESP 18
[2019-02-13 04:56] VITALS: PULSE 82
[2019-02-13] MEDS: SODIUM CHLORIDE 0.9% 1,000 ML IV SCH (08:55)
[2019-02-13] MEDS ORDERED: ASPIRIN 81 MG PO SCH (09:00)
[2019-02-13] MEDS ORDERED: CYANOCOBALAMIN 1,000 MCG/ML 1 ML VIAL IM SCH (09:00)
--- NOTE | 2019-02-13 09:59 | PN ---
PROGRESS NOTE DATE OF SERVICE: 02/13/2019 I had the pleasure of re-evaluating Jazmin Sandoval and the patient's daughter is at the bedside. The patient has had no recurrent symptoms. The patient and her daughter expressed frustration over the fact that the patient does not have a specific time to have the transesophageal echocardiogram completed and was kept n.p.o. this morning. They feel that the hospitalization process including testing and multiple physician evaluations has provoked significant anxiety in the patient, her daughter feels she has had "enough" and they do not wish to pursue any additional testing. They understand the logic of daily aspirin and cholesterol medication and are agreeable to these recommendations. CURRENT MEDICATIONS: Aspirin, Lipitor, ceftriaxone, and B12. PHYSICAL EXAM: Upon my arrival to the room, the patient was lying in bed, appeared comfortable but anxious to go home. VITAL SIGNS: Blood pressure is 142/73 with pulse 82, respiratory rate 18, temperature 98.2. SKIN AND EXTREMITIES: Arthritic changes are noted in the hands. HEAD AND NECK: Neck is supple without meningeal signs. Arteries are nontender and without bruits. HEART: Regular rate and rhythm. HIGHER CORTICAL FUNCTION: MENTAL STATUS: Patient was alert, oriented to time, place and person. There was no aphasia or dysarthria. CRANIAL NERVES II THROUGH XII are intact. MOTOR EXAMINATION: No pronator drift. There is mildly reduced bulk in the hamstring and intrinsic muscles with normal tone and no involuntary movements are noted. Strength is 5 out of 5 throughout except at the interossei which were 4+ over 5 bilaterally. SENSORY: Intact to pinprick and light touch in all extremities. COORDINATION: Amimkb-tf-wyac, mwot-hd-lozo movements are intact. Rapid alternating movements are symmetric with finger tapping. DIAGNOSTIC TESTING: Patient's urine culture demonstrated greater than 100,000 colonies of gram-negative bacilli. B12 was low at 185. TSH within normal limits. Hemoglobin A1c was elevated at 6.9. CTA completed on 02/12/2019 revealed tortuous internal carotid arteries bilaterally with "hairpin" loops which were felt to account for turbulent flow and the elevated velocities on ultrasound. There was mild atherosclerotic calcification without significant narrowing on the right internal carotid artery and the left common/internal carotid artery were reported to be patent. The left vertebral artery is dominant, but both vertebral arteries were patent throughout their course. IMPRESSION: 1. Transient right face/arm weakness with dysarthria, likely secondary to a left hemispheric transient ischemic attack. The etiology of this event is unclear but may be secondary to small-vessel disease versus cardioembolic phenomenon. The patient's risk factors for stroke include tobacco abuse and age. The patient was not on aspirin or other anti-platelet/anticoagulant medication at the time of this event. 2. Reported 50% to 69% stenosis of both internal carotid arteries per ultrasound, CTA of the neck vessels demonstrated tortuous vessels which were felt to result in turbulent flow accounting for these elevated velocities on ultrasound, no significant atherosclerotic narrowing was noted of either internal carotid artery. 3. Aneurysmal interatrial septum per transthoracic echocardiogram. 4. Arrhythmia with AV node Wenckebach and 2:1 AV block per Cardiology without atrial fibrillation documented to date. 5. Gram-negative bacilli urinary tract infection. 6. B12 deficiency. 7. Elevated hemoglobin A1c, defer to your expertise, this may represent an additional stroke risk factor. 8. The patient has not seen a physician in 40 years. RECOMMENDATION: 1. As described above, the patient and her daughter do not wish to pursue any additional testing such as transesophageal echocardiogram or loop recorder placement and want to go home. 2. The results of the CTA of the neck vessels were discussed with the patient and her daughter and they expressed understanding. 3. Risk factor modification, the patient is currently maintained on aspirin/Lipitor and would strongly recommend she quit smoking. 4. Treatment of urinary tract infection/elevated hemoglobin A1c per primary service. 5. B12 supplementation. 6. Please feel free to contact me if there are further questions from a neurologic standpoint. Thank you for allowing me to participate in the care of your patient. MMODL / IJN: [id number] /
[2019-02-13 10:10] VITALS: BP 160/76; TEMP 97.9
--- NOTE | 2019-02-13 12:23 | P.DS ---
Providers Date of admission: 02/12/19 07:36 Expected date of discharge: 02/13/19 Attending physician: Angela Real DO Consults: 02/11/19 19:06 Consult Physician Routine Consulting Provider: Jaciel Tuttle Consult Reason/Comments: tia Do you want consulting provider notified?: Yes Consult Physician Routine Consulting Provider: Stanley Murdock Consult Reason/Comments: abnormal ekg Do you want consulting provider notified?: Yes Primary care physician: Stated None - Discharge Diagnosis(es) (1) Transient cerebral ischemia Current Visit: Yes Status: Acute (2) Atrioventricular conduction disorder Current Visit: Yes Status: Acute (3) UTI (urinary tract infection) Current Visit: Yes Status: Acute (4) Type 2 diabetes mellitus Current Visit: Yes Status: Acute (5) Elevated blood-pressure reading without diagnosis of hypertension Current Visit: Yes Status: Acute Hospital Course: The patient is a 84-year-old female who was admitted for concern for TIA/CVA after presenting with an episode of right-sided weakness dysarthria and facial droop the patient's symptoms resolved prior to presentation to the ER. Workup for TIA including a CT of the head which was negative for any acute intracranial pathology, But did indicate moderate bifrontal atrophy. 2D Echocardiogram showed ejection fraction of 60-65% with a normal left atrium. carotid Dopplers suggested stenosis of 50-69% within both internal carotids, subsequent CTA of the neck ruled out any hemodynamically significant carotid disease. There was concern for AV block cardiology was consulted and it was determined the patient instead had intermittent second-degree AV block 2:1. Neurology and cardiology recommended RISA and placement of a loop recorder however after discussing this with the patient's family the opted for no further invasive testing and was amenable to ongoing medical management the patient was noted also to have a urinary tract infection was started on empiric IV antibiotics with Rocephin/ preliminary culture results showed gram-negative bacilli and the patient was discharged home on Keflex. The patient was discharged home in stable condition and told to follow up with her primary care physician in 3-5 days. This discharge process took approximately 35 minutes Focused exam Neurologic: Cranial nerves II 12 grossly intact, no focal deficits appreciated Cardiovascular: Regular rate and rhythm no rubs or gallops Patient Condition at Discharge: Good Plan - Discharge Summary Discharge Rx Participant: No New Discharge Prescriptions: New Aspirin 81 mg PO DAILY #30 chew Cephalexin [Keflex] 500 mg PO Q12HR #6 cap metFORMIN HCL [Glucophage] 850 mg PO BID-W/MEALS #60 tab Discharge Medication List Aspirin 81 mg PO DAILY #30 chew 02/13/19 [Rx] Cephalexin [Keflex] 500 mg PO Q12HR #6 cap 02/13/19 [Rx] metFORMIN HCL [Glucophage] 850 mg PO BID-W/MEALS #60 tab 02/13/19 [Rx] Follow up Appointment(s)/Referral(s): Javier Doan MD [STAFF PHYSICIAN] - 03/08/19 11:45 am (Power House Engineer. ) None,Stated [Primary Care Provider] - 1-2 days (Please contact your insurance for a list of providers in your coverage. ) Patient Instructions/Handouts: Transient Ischemic Attack (DC), Urinary Tract Infection in Women (DC) Discharge Disposition: HOME SELF-CARE
--- NOTE | 2019-02-13 13:20 | P.PN ---
Subjective This is Dr. Doan dictating a consult on this patient The patient was interviewed and examined by me IMPRESSION / ASSESSMENT: TIA with transient right face and right arm weakness and dysarthria secondary to a left hemispheric TIA Right bundle-branch block, AV node disease intermittent 2-1 AV block Current smoker PLAN: Baby aspirin 81 mg by mouth daily Atorvastatin 20 mg by mouth daily Consider implantation of a loop monitor to look for episodes of silent atrial fibrillation that can explain her cardio embolic event This will also facilitate an early diagnosis of sudden bradycardia or significant bradycardia She is a aneurysmal intra-atrial septum and a bubble study will be performed as an outpatient Smoking cessation HPI Patient presented with TIA like symptoms Telemetry and 20 ECGs have shown evidence of conduction system disease She remains asymptomatic and her neurologic symptoms have resolved EXAMINATION: Resting comfortably. Sitting at the edge of the bed Breath sounds are clear no rhonchi no crackles Heart sounds are normal no murmurs or gallops no rub Extremities warm no edema No Bruits Abdomen soft Extremities warm no edema REVIEW OF LABS, ECG & MEDICAL DATA 2-D echo reveals preserved LV systolic function, possibly mildly enlarged right ventricle, interatrial septal aneurysm Aortic valve was not well visualized RVSP 40 mmHg Inferior vena cava size normal with normal inspiratory collapse Twelve-lead ECG shows evidence for AV node disease with intermittent 2-1 heart block with average heart rates in the 60s with a right bundle branch block pattern Later AV node Wenckebach block was noted Subsequently on telemetry no significant bradycardia was noted. Lowest heart rates in the 40s no significant pauses but the patient does have intermittent 2- 1 AV block No loss of consciousness Carotid artery ultrasound reveals elevated velocities line however CTA of the neck arteries show tortuosity of the carotid vessels accounting for the increased Lasix days Mild atherosclerosis in the carotid bulbs with calcification Objective - Vital Signs Vital signs: Vital Signs Temp 97.9 F 02/13/19 08:00 Pulse 82 02/13/19 08:00 Resp 18 02/13/19 08:00 BP 160/76 02/13/19 08:00 Pulse Ox 91 L 02/13/19 08:00 Intake & Output 02/12/19 02/13/19 02/13/19 18:59 06:59 18:59 Intake Total 780 Balance 780 Weight 50.8 kg Intake: Intake, IV Titration 150 Amount cefTRIAXone 1 gm In 150 Sodium Chloride 0.9% 50 ml @ 100 mls/hr IVPB Q24HR [facility] Rx#:[id number] Oral 630 Other: Voiding Method Toilet # Voids 3 1 - Labs CBC & Chem 7: 02/12/19 07:07 02/12/19 07:07 Labs: Abnormal Lab Results - Last 24 Hours (Table) 02/11/19 02/12/19 Range/Units 22:12 07:07 Hemoglobin A1c 6.9 H (4.0-6.0) % Vitamin B12 185.0 L (200.0-944.0) pg/mL Microbiology - Last 24 Hours (Table) 02/11/19 17:45 Urine Culture - Preliminary Urine,Clean Catch Gram Neg Bacilli
[2019-02-13] MEDS ORDERED: metFORMIN 850 MG TAB PO SCH (17:30)
== END 2019-02-13 13:20 | disposition home or self-care (01) | DRG 69 ==
LOC: EC 16:14 → 3SCARD 19:05 → OBSVTOIN 02-12 07:36
PROVIDERS: ADMIT Internal Medicine; ATTEND Internal Medicine
DX: G45.9 Transient cerebral ischemic attack, unspecified (principal); I25.3 Aneurysm of heart; I07.1 Rheumatic tricuspid insufficiency; I45.10 Unspecified right bundle-branch block; I44.1 Atrioventricular block, second degree; N30.90 Cystitis, unspecified without hematuria; E53.8 Deficiency of other specified B group vitamins; R03.0 Elevated blood-pressure reading, without diagnosis of hypertension; F41.9 Anxiety disorder, unspecified; R29.810 Facial weakness; R47.1 Dysarthria and anarthria; R47.81 Slurred speech; G83.21 Monoplegia of upper limb affecting right dominant side; F17.210 Nicotine dependence, cigarettes, uncomplicated; Z71.6 Tobacco abuse counseling; Z90.710 Acquired absence of both cervix and uterus; Z90.49 Acquired absence of other specified parts of digestive tract; Z98.41 Cataract extraction status, right eye; Z98.42 Cataract extraction status, left eye; Z88.2 Allergy status to sulfonamides; E11.9 Type 2 diabetes mellitus without complications
CPT/HCPCS: 36415; 70450; 70498; 71046; 80053; 80061; 81001; 82607; 83036; 83735; 84100; 84443; 84484; 85025; 85610; 85730; 87077; 87086; 87186; 93005; 93306; 93880; 96365; 99285

== ENCOUNTER 2019-03-25 11:52 | Day surgery (SDC) | payer MEDICARE, OTHER ==
[2019-03-18 13:17] VITALS: BMI 22.2
[~2019-03-25 11:52] MED LIST: SODIUM CHLORIDE 0.9% 1,000 ML IV SCH
[2019-03-25 12:33] VITALS: RESP 20; TEMP 97.9
[2019-03-25] MEDS ORDERED: IV FLUID CONTINUATION 1,000 ML IV ONE (13:44)
[2019-03-25] MEDS ORDERED: MIDAZOLAM PF (FBP) 2 MG/2 ML VIAL IV ONE (13:48)
[2019-03-25] MEDS ORDERED: LIDOCAINE 1% INJ 10MG/ML (20 ML MDV) SQ ONE ×2 (13:49)
--- NOTE | 2019-03-25 14:12 | P.PCN ---
Preoperative Diagnosis: Diagnosis Cryptogenic syncope Loop implant for diagnosis of suspected A. fib as a cause of her syncope Loop monitor implant Primary physicians: Card Scraper: Dr. Doan Indication: Cryptogenic stroke Patient was brought to the EP lab in a fasting state. Written informed consent was obtained prior to the procedure. The left pectoral area was prepped and draped per protocol. Intravenous antibiotic was administered preoperatively. A subcutaneous Loop monitor was implanted successfully and the wound was closed per protocol. The device was programmed to detect significant juan- arrhythmic and tachy-arrhythmic events, per protocol. Device and programming details: A. fib and bradycardia management Patient underwent EP procedure under conscious sedation/moderate sedation, monitoring of the level of consciousness and physiologic parameters including but not limited to vital signs and oxygenation. Patient tolerated the procedure well without any acute complications. Start time: 145 Stop time: 155
[2019-03-25 15:04] VITALS: PULSE 74
[2019-03-25 15:08] VITALS: BP 120/72
== END 2019-03-25 14:45 | disposition home or self-care (01) ==
LOC: CATHEP 11:52
PROVIDERS: ATTEND Internal Medicine Clinical Cardiac Electrophysiology
DX: R55 Syncope and collapse (principal); I44.1 Atrioventricular block, second degree; I45.10 Unspecified right bundle-branch block; I44.7 Left bundle-branch block, unspecified; Z86.73 Personal history of transient ischemic attack (TIA), and cerebral infarction without residual deficits; F17.200 Nicotine dependence, unspecified, uncomplicated; Z79.84 Long term (current) use of oral hypoglycemic drugs; Z79.82 Long term (current) use of aspirin; Z79.899 Other long term (current) drug therapy
CPT/HCPCS: 33285; C1769; C1764; J0690; J2001; J2250

== ENCOUNTER → 2019-04-30 | Outpatient (CLI) | payer MEDICARE, OTHER ==
[2019-04-30 09:00] LABS: HCT 38.3 % (34.0-46.0); HGB 12.3 gm/dL (11.4-16.0); Hypochromasia Slight; MCH 29.6 pg (25.0-35.0); MCHC 32.1 g/dL (31.0-37.0); MCV 92.3 fL (80.0-100.0); Mean Platelet Volume 7.5; Platelet Count 537 k/uL (150-450); RBC 4.15 m/uL (3.80-5.40); RDW 13.8 % (11.5-15.5); WBC 10.3 k/uL (3.8-10.6)
[2019-04-30 09:12] LABS: African American GFR (CKD) >90 (>60 ml/min/1.73 sqM); Anion Gap 7 mmol/L; Blood Urea Nitrogen 14 mg/dL (7-17); Carbon Dioxide 32 mmol/L (22-30); Chloride 102 mmol/L (98-107); Glucose 112 mg/dL (74-99); Potassium 4.5 mmol/L (3.5-5.1); Sodium 141 mmol/L (137-145)
== END | disposition home or self-care (01) ==
LOC: LABPAT 07:42
PROVIDERS: ATTEND Internal Medicine Clinical Cardiac Electrophysiology
DX: Z01.812 Encounter for preprocedural laboratory examination (principal); I44.7 Left bundle-branch block, unspecified; I44.2 Atrioventricular block, complete
CPT/HCPCS: 36415; 80051; 82565; 82947; 84520; 85027

== ENCOUNTER 2019-05-14 08:31 | Day surgery (SDC) | payer MEDICARE, OTHER ==
[2019-05-14] MEDS ORDERED: ceFAZolin 1,000 MG in SODIUM CHLORIDE 0.9% IRRIGATIO 250 ML IRRIGATION ONE (09:00)
[2019-05-14] MEDS ORDERED: SODIUM CHLORIDE 0.9% 1,000 ML IV ONE (09:11)
[2019-05-14] MEDS ORDERED: fentaNYL (PF) 50 MCG/ML 2 ML AMP ONE (11:54)
[2019-05-14] MEDS ORDERED: PROPOFOL 10 MG/ML 20 ML VIAL IV ONE (11:54)
[2019-05-14] MEDS ORDERED: MIDAZOLAM 2 MG/2 ML VIAL ONE (11:54)
[2019-05-14] MEDS ORDERED: IOPAMIDOL-250 100ML BTL IV ONE (12:15)
[2019-05-14] MEDS ORDERED: LIDOCAINE 1% INJ 10MG/ML (20 ML MDV) ONE (12:31)
[2019-05-14] MEDS ORDERED: LIDOCAINE 1% INJ 10MG/ML (20 ML MDV) SQ ONE ×2 (12:46→12:47)
[2019-05-14] MEDS ORDERED: ACETAMINOPHEN TAB 325 MG TAB PO PRN (13:59)
[2019-05-14] MEDS ORDERED: ACETAMINOPHEN IV (For NPO) 1,000 MG in EMPTY BAG 1 BAG IVPB ONE (13:59)
[2019-05-14] MEDS ORDERED: HYDROcodone/APAP 5-325MG 1 EACH TAB PO PRN (13:59)
[2019-05-14 15:01] VITALS: BMI 23.3
[2019-05-14] MEDS: SODIUM CHLORIDE 0.9% 1,000 ML IV SCH ×3 (15:34→21:26)
[2019-05-14] MEDS: LACTATED RINGERS 1,000 ML IV SCH (15:34)
--- NOTE | 2019-05-14 22:05 | LTR ---
DATE OF SERVICE: 05/14/2019 Dear Josue: Jazmin Sandoval had documented AV block on her loop monitor tracings, but over the last 2 weeks she is almost continuously in this rhythm with advanced block. She underwent dual chamber pacemaker implantation successfully without any acute complications. She will continue to follow up with you and me as before, we will see her in the pacemaker clinic within a week. Thank you for entrusting me in the care of your patient. Warm regards, Sincerely, OLIVIER / CORNELIUS: [id number] /
--- NOTE | 2019-05-14 22:05 | PCN ---
PROCEDURE NOTE This is an 84-year-old female complaining of tiredness and fatigue was a loop monitor implanted. She had intermittent paroxysmal AV block with bradycardia. Over the last week or so, she was becoming excessively tired and fatigued and when she came in, she was in advanced heart block (Mobitz type 2 AV block with severe bradycardia in the 40s). Dual chamber pacemaker was implanted. She has normal LV function. The patient is brought to the EP lab in a fasting state. Written informed consent was obtained prior to the procedure. The left shoulder area was prepped and draped as per protocol. 1% lidocaine was used for local anesthesia. A 4 cm incision was made parallel to the deltopectoral groove, about 1.5 cm medial to it. The incision was carried down to the level of the pectoralis muscle. A subfascial pocket was made. Hemostasis was assured. The left axillary vein was accessed at 2 separate points under fluoroscopy and via appropriately-sized introducer sheaths, 2 leads were positioned the right heart. The atrial lead was a screw-in lead [employer] model #2088TC, 46 cm in length and serial number [id number]. P waves were 4.1 mV. Pacing impedance 530 ohms, pacing threshold 0.5 V at 0.4 milliseconds. The RV lead was positioned in the mid RV septum. This was a [employer] model #2088TC, 58 cm length and serial number [id number]. R-waves were 12 mV, pacing impedance 860 ohms, pacing threshold 1 V at 0.4 milliseconds. The leads were then secured to the underlying pectoralis muscle using 2 nonabsorbable sutures. Pocket was irrigated with antibiotic solution. Leads were connected to the generator ([employer] model number [id number], serial #[id number]). The leads and generator were then placed in subfascial pocket. The wound was closed in 3 layers and dressed per protocol. The device was then programmed to DDD at 60 ppm with an AV delay of 200 milliseconds. RESULT: Successful dual chamber pacemaker implantation for symptomatic advanced Mobitz type 2 AV block with severe bradycardia. PLAN: IV antibiotics and likely discharge tomorrow. MMODL / IJN: [id number] /
[2019-05-15] MEDS: SODIUM CHLORIDE 0.9% 1,000 ML IV SCH (03:00)
[2019-05-15 07:34] VITALS: RESP 17
--- NOTE | 2019-05-15 08:06 | P.DS ---
Providers Attending physician: Javier Doan Primary care physician: [facility] Course: Patient is doing well. No chest discomfort dizziness lightheadedness. Minimal tenderness. Minimal swelling at the pacemaker site minimal soakage Blood pressure 123/79 mmHg pulse rate in the 70s but it does go up to 120 230 beats a minute and bursts, likely PMT Normal heart sounds no murmurs or gallops Breath sounds are reduced bilaterally but there are no rhonchi no crackles Abdomen soft when extremity warm no edema No JVD Impression Advanced AV block, Mobitz 2 with severe bradycardia that may triggering factors Successful dual-chamber pacemaker implantation yesterday Likely PMT, we will reprogram the pacemaker today Dyslipidemia Suggest Patient may go home after completion of IV antibiotics, pacemaker interrogation and chest x-ray Follow-up in the device clinic within one week Follow-up with Dr. Doan within 3-4 months Patient Condition at Discharge: Stable Plan - Discharge Summary Discharge Rx Participant: No New Discharge Prescriptions: No Action Aspirin 81 mg PO DAILY #30 chew Atorvastatin [Lipitor] 20 mg PO DAILY Discharge Medication List Aspirin 81 mg PO DAILY #30 chew 02/13/19 [Rx] Atorvastatin [Lipitor] 20 mg PO DAILY 05/09/19 [History] Follow up Appointment(s)/Referral(s): Javier Doan MD [STAFF PHYSICIAN] - 1 Week (Follow-up in the device clinic in one week follow up with Dr. Doan/Shirin Enriquez/Beth Huertas in 3-4 months or as previously scheduled) Activity/Diet/Wound Care/Special Instructions: PATIENT EDUCATION MATERIAL Instructions following a heart rhythm device implant. 1. Keep dressing DRY for 5 DAYS. You may cover the area with Saran or Cling Wrap, prior to a shower. 2. The dressing will be removed in the Device Clinic at [facility]. Absorbable sutures were used to close the wound. 3. Avoid raising the left arm above the shoulder level. 4 week restriction 4. Avoid arm movements, like backscratching, rubbing the head, or pulling on a cord. 4 weeks restriction 5. Gentle range of motion movements of the shoulder, closest to the incision should be performed to avoid a frozen shoulder. (Pendulum exercises of the shoulder) 6. The opposite arm may be used freely. 7. Avoid driving for 7 days. 8. Avoid activities such as golfing, swimming, weed whacking, lifting more than 10 pounds weight, bowling, gymnastics and weight training/lifting. (6 weeks restriction) 9. Activities such as wood chopping with an axe, pull-ups in the gymnasium, power lifting, arc-welding, being close to home induction cooktops will always be a problem. 10. Arm sling is only a reminder not to raise the arm above the head. You do not need to keep the arm completely immobilized. Your free to move the arm and use it and for normal activities. In case of any problems, please call [facility], [place], @ [phone], Attention: Device Clinic Device clinic follow-up in 5 days Follow-up with primary coach builder in 2-3 months Continue current cardiac medications
[2019-05-15] MEDS: LACTATED RINGERS 1,000 ML IV SCH (08:07)
--- NOTE | 2019-05-15 08:15 | XR ---
EXAMINATION TYPE: XR chest 2V DATE OF EXAM: 05/15/2019 COMPARISON: 02/11/2019 TECHNIQUE: PA and lateral views submitted. HISTORY: Lead placement check FINDINGS: Cardiac device with a double lead pacemaker seen and appears to be in good position no sizable pneumo thorax. Hyperinflation suggests COPD. Atherosclerotic change aorta. Diffuse osteopenia and arthropath y of the shoulders. Blunting of the costophrenic angles bilaterally. On the lateral view pleural-base d density is seen. Degenerative change of the spine. IMPRESSION: 1. Chest lead appears in good position with no sizable pneumothorax. 2. COPD. Lateral view of the chest demonstrate a nodular pleural-based density overlying the midthora cic spine region. Recommend short-term follow-up CT of the chest.
[2019-05-15] MEDS ORDERED: ASPIRIN 81 MG PO SCH (09:00)
[2019-05-15] MEDS ORDERED: ATORVASTATIN 20 MG TAB PO SCH (09:00)
[2019-05-15 12:01] VITALS: BP 122/75; PULSE 85; TEMP 97.3
== END 2019-05-15 13:10 | disposition home or self-care (01) ==
LOC: CATHEP 08:31 → 1SOBS 13:50 → CATHEP 05-15 13:10
PROVIDERS: ATTEND Internal Medicine Clinical Cardiac Electrophysiology
DX: I44.1 Atrioventricular block, second degree (principal); R00.1 Bradycardia, unspecified; I44.7 Left bundle-branch block, unspecified; Z86.73 Personal history of transient ischemic attack (TIA), and cerebral infarction without residual deficits; Z87.891 Personal history of nicotine dependence; Z79.82 Long term (current) use of aspirin; Z79.899 Other long term (current) drug therapy; Z88.2 Allergy status to sulfonamides
CPT/HCPCS: 33208; 71046; C1769 ×4; C1892; C1898; C1785; J2250; J0690 ×2; J2001; J3010; J2704; Q9966

== ENCOUNTER 2019-08-01 10:05 | Inpatient (IN) | payer MEDICARE, OTHER ==
[2019-08-01] MEDS ORDERED: SODIUM CHLORIDE 0.9% 1,000 ML IV STA ×2 (11:16→15:16)
[2019-08-01] MEDS ORDERED: ASPIRIN 81 MG PO STA (11:16)
--- NOTE | 2019-08-01 11:23 | ED ---
General Adult HPI - General Chief complaint: Chest Pain Stated complaint: JESUS MANUEL Time Seen by Provider: 08/01/19 11:04 Source: patient Mode of arrival: wheelchair Limitations: physical limitation - History of Present Illness Initial comments: Dictation was produced using [email or web address] dictation software. please excuse any grammatical, word or spelling errors. Chief Complaint: 84-year-old female presents with chief complaint of chest pain. History of Present Illness: Send 84-year-old female presents with chief complaint of chest pain. Patient states her symptoms began on Monday. Back in February patient had a stroke. She had a implanted loop recorder that showed that patient had episodes of asystole. She then had a pacemaker placed in June of this year. Since the pacemaker was placed patient reports that she's been having multiple medical issues. Since on the patient has been having sharp left-sided chest pain that radiates to the anterior chest. Patient states that pain is nonradiating. She reports that it is severe and improved with position. Patient reports that the pain is improved with left lateral decubitus position for several minutes. Denies any exacerbating factors. She has been nauseated and coughing recently. Patient has a remote history of smoking. Denies any production of sputum with coughing. Denies any constitutional symptoms. Patient denies any shortness of breath. The ROS documented in this emergency department record has been reviewed and confirmed by me. Those systems with pertinent positive or negative responses have been documented in the HPI. All other systems are other negative and/or noncontributory. PHYSICAL EXAM: General Impression: Alert and oriented x3, not in acute distress HEENT: Normocephalic atraumatic, extra-ocular movements intact, pupils equal and reactive to light bilaterally, mucous membranes moist. Cardiovascular: Heart regular rate and rhythm, S1&S2 audible, no murmurs, rubs or gallops Chest: Left lung rhonchi Abdomen: Bowel sounds present, abdomen soft, non-tender, non-distended, no organomegaly Musculoskeletal: Pulses present and equal in all extremities, no peripheral edema Motor: no focal deficits noted Neurological: CN II-XII grossly intact, no focal motor or sensory deficits noted Skin: Intact with no visualized rashes Psych: Normal affect and mood ED course: 84-year-old female presents with chief complaint of chest pain. Patient's symptoms are atypical. She does however have multiple risk factors for acute coronary syndrome. Vital signs upon arrival are within acceptable limits. EKG suggests that patient's heart is 126 over when manually palpating her pulse rate is approximately 100. Patient denies any chest pain currently.Return evaluation obtained. Leukocytosis of 22.0. Coag panel unremarkable. Metabolic panel shows troponin of 0.02. Urinalysis shows leukocytosis of 182. Chest x-ray is nonacute. At this point patient's chest pain is likely secondary to pyelonephritis. Nonetheless patient will be admitted for so troponins and IV antibiotics. Patient reevaluated at bedside reports improvement of symptoms after intravenous fluids and supplemental oxygen. Discussed patient case Dr. aren is willing to accept patients care. Cardiology will be on consultation. Serial troponins ordered. EKG interpretation: Ventricular rate 126, tachycardia, NH interval 200, care is 142, QTc 544. EKG shows multiple areas of bigeminy. There do appear to be pacer spikes. No NH prolongation, no QTC prolongation, no ST or T-wave changes noted. EKG compared to [default value] showing no changes. Overall, this EKG is unremarkable - Related Data Home Medications Medication Instructions Recorded Confirmed Atorvastatin [Lipitor] 20 mg PO DAILY 05/09/19 05/14/19 Previous Rx's Medication Instructions Recorded Aspirin 81 mg PO DAILY #30 chew 02/13/19 Allergies Allergy/AdvReac Type Severity Reaction Status Date / Time Sulfa (Sulfonamide Allergy Unknown Verified 05/14/19 08:49 Antibiotics) metformin AdvReac Unknown Diarrhea Verified 05/14/19 08:49 Review of Systems ROS Statement: Those systems with pertinent positive or pertinent negative responses have been documented in the HPI. ROS Other: All systems not noted in ROS Statement are negative. Past Medical History Past Medical History: CVA/TIA Additional Past Medical History / Comment(s): TIA 02/11/19-no residual effects, see Dr Doan H&P, History of Any Multi-Drug Resistant Organisms: None Reported Past Surgical History: Appendectomy, Hernia Repair, Hysterectomy Additional Past Surgical History / Comment(s): jan cataracts, loop recorder 02/2019 Past Anesthesia/Blood Transfusion Reactions: No Reported Reaction Type of Cardiac Device: Loop Past Psychological History: No Psychological Hx Reported Smoking Status: Former smoker Past Alcohol Use History: None Reported Past Drug Use History: None Reported - Past Family History Mother Family Medical History: Cancer Father Family Medical History: Cancer General Exam Limitations: physical limitation Course Vital Signs 08/01/19 08/01/19 08/01/19 10:33 11:08 12:13 Temperature 98.7 F Pulse Rate 71 93 Pulse Rate [ 94 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 ] Respiratory 20 18 Rate Blood Pressure 110/63 121/67 O2 Sat by Pulse 95 98 Oximetry Medical Decision Making - Lab Data Result diagrams: 08/01/19 11:15 08/01/19 11:15 Lab Results 08/01/19 08/01/19 08/01/19 Range/Units 11:00 11:15 11:15 WBC 22.0 H (3.8-10.6) k/uL RBC 4.11 (3.80-5.40) m/uL Hgb 12.2 (11.4-16.0) gm/dL Hct 37.7 (34.0-46.0) % MCV 91.9 (80.0-100.0) fL MCH 29.6 (25.0-35.0) pg MCHC 32.2 (31.0-37.0) g/dL RDW 13.5 (11.5-15.5) % Plt Count 425 (150-450) k/uL Neutrophils % 87 % Lymphocytes % 3 % Monocytes % 7 % Eosinophils % 1 % Basophils % 0 % Neutrophils # 19.0 H (1.3-7.7) k/uL Lymphocytes # 0.7 L (1.0-4.8) k/uL Monocytes # 1.6 H (0-1.0) k/uL Eosinophils # 0.3 (0-0.7) k/uL Basophils # 0.0 (0-0.2) k/uL PT (9.0-12.0) sec INR (<1.2) APTT (22.0-30.0) sec Sodium 138 (137-145) mmol/L Potassium 3.8 (3.5-5.1) mmol/L Chloride 99 (98-107) mmol/L Carbon Dioxide 28 (22-30) mmol/L Anion Gap 11 mmol/L BUN 26 H (7-17) mg/dL Creatinine 0.77 (0.52-1.04) mg/dL Est GFR (CKD-EPI)AfAm 83 (>60 ml/min/1.73 sqM) Est GFR (CKD-EPI)NonAf 72 (>60 ml/min/1.73 sqM) Glucose 137 H (74-99) mg/dL Calcium 9.4 (8.4-10.2) mg/dL Magnesium 2.1 (1.6-2.3) mg/dL Total Bilirubin 0.8 (0.2-1.3) mg/dL AST 24 (14-36) U/L ALT 12 (4-34) U/L Alkaline Phosphatase 144 H (38-126) U/L Troponin I (0.000-0.034) ng/mL Total Protein 6.5 (6.3-8.2) g/dL Albumin 3.5 (3.5-5.0) g/dL Urine Color Yellow Urine Appearance Turbid H (Clear) Urine pH 6.0 (5.0-8.0) Ur Specific [place] 1.016 (1.001-1.035) Urine Protein 1+ H (Negative) Urine Glucose (UA) Negative (Negative) Urine Ketones Negative (Negative) Urine Blood Moderate H (Negative) Urine Nitrite Negative (Negative) Urine Bilirubin Negative (Negative) Urine Urobilinogen <2.0 (<2.0) mg/dL Ur Leukocyte Esterase Large H (Negative) Urine RBC 17 H (0-5) /hpf Urine WBC >182 H (0-5) /hpf Urine WBC Clumps Many H (None) /hpf Urine Bacteria Many H (None) /hpf Urine Mucus Rare H (None) /hpf 08/01/19 08/01/19 Range/Units 11:15 11:15 WBC (3.8-10.6) k/uL RBC (3.80-5.40) m/uL Hgb (11.4-16.0) gm/dL Hct (34.0-46.0) % MCV (80.0-100.0) fL MCH (25.0-35.0) pg MCHC (31.0-37.0) g/dL RDW (11.5-15.5) % Plt Count (150-450) k/uL Neutrophils % % Lymphocytes % % Monocytes % % Eosinophils % % Basophils % % Neutrophils # (1.3-7.7) k/uL Lymphocytes # (1.0-4.8) k/uL Monocytes # (0-1.0) k/uL Eosinophils # (0-0.7) k/uL Basophils # (0-0.2) k/uL PT 10.7 (9.0-12.0) sec INR 1.0 (<1.2) APTT 25.6 (22.0-30.0) sec Sodium (137-145) mmol/L Potassium (3.5-5.1) mmol/L Chloride (98-107) mmol/L Carbon Dioxide (22-30) mmol/L Anion Gap mmol/L BUN (7-17) mg/dL Creatinine (0.52-1.04) mg/dL Est GFR (CKD-EPI)AfAm (>60 ml/min/1.73 sqM) Est GFR (CKD-EPI)NonAf (>60 ml/min/1.73 sqM) Glucose (74-99) mg/dL Calcium (8.4-10.2) mg/dL Magnesium (1.6-2.3) mg/dL Total Bilirubin (0.2-1.3) mg/dL AST (14-36) U/L ALT (4-34) U/L Alkaline Phosphatase (38-126) U/L Troponin I 0.020 (0.000-0.034) ng/mL Total Protein (6.3-8.2) g/dL Albumin (3.5-5.0) g/dL Urine Color Urine Appearance (Clear) Urine pH (5.0-8.0) Ur Specific [place] (1.001-1.035) Urine Protein (Negative) Urine Glucose (UA) (Negative) Urine Ketones (Negative) Urine Blood (Negative) Urine Nitrite (Negative) Urine Bilirubin (Negative) Urine Urobilinogen (<2.0) mg/dL Ur Leukocyte Esterase (Negative) Urine RBC (0-5) /hpf Urine WBC (0-5) /hpf Urine WBC Clumps (None) /hpf Urine Bacteria (None) /hpf Urine Mucus (None) /hpf Disposition Clinical Impression: Chest pain, Pyelonephritis Disposition: ADMITTED IP TO THIS [facility] Condition: Fair Referrals: Josue Meier DO [Primary Care Provider] - 1-2 days Decision Time: 12:52
[2019-08-01 11:37] LABS: Basophils % (A) 0 %; Eosinophils # (A) 0.3 k/uL (0-0.7); Eosinophils % (A) 1 %; HCT 37.7 % (34.0-46.0); HGB 12.2 gm/dL (11.4-16.0); Lymphocytes # (A) 0.7 k/uL (1.0-4.8); Lymphocytes % (A) 3 %; MCH 29.6 pg (25.0-35.0); MCHC 32.2 g/dL (31.0-37.0); MCV 91.9 fL (80.0-100.0); Mean Platelet Volume 8.5; Monocytes # (A) 1.6 k/uL (0-1.0); Monocytes % (A) 7 %; Neutrophils % (A) 87 %; Platelet Count 425 k/uL (150-450); RBC 4.11 m/uL (3.80-5.40); RDW 13.5 % (11.5-15.5)
--- NOTE | 2019-08-01 11:38 | XR ---
EXAMINATION TYPE: XR chest 2V DATE OF EXAM: 08/01/2019 COMPARISON: 05/15/2019 HISTORY: 84-year-old female with chest pain shortness of breath TECHNIQUE: AP and lateral views FINDINGS: Loop recorder device projects over the left heart margin. Left anterior chest wall pacemaker generato r with right atrial and right ventricular leads. Heart upper limits of normal in size. Atherosclerotic arch calcifications. Hyperinflation with mild i nterstitial prominence which is unchanged. Stable blunting of the left lateral costophrenic angle wit hout any significant effusion seen on the lateral view. No consolidation is seen. IMPRESSION: 1. Stable borderline heart size. 2. Stable pleural parenchymal opacity at the left base likely scarring. 3. COPD. No definite acute process.
[2019-08-01 11:48] LABS: Albumin 3.5 g/dL (3.5-5.0); Calcium 9.4 mg/dL (8.4-10.2); Magnesium 2.1 mg/dL (1.6-2.3); Potassium 3.8 mmol/L (3.5-5.1); Total Bilirubin 0.8 mg/dL (0.2-1.3); Total Protein 6.5 g/dL (6.3-8.2)
[2019-08-01 11:51] LABS: Partial Thromboplastin Time 25.6 sec (22.0-30.0); Prothrombin Time 10.7 sec (9.0-12.0)
[2019-08-01 12:33] LABS: Appearance,Urine Turbid (Clear); Bacteria,Urine Many /hpf; Bilirubin,Urine Negative (Negative); Blood,Urine Moderate (Negative); Color,Urine Yellow; Glucose,Urine (UA) Negative (Negative); Ketones,Urine Negative (Negative); Leukocyte Esterase,Urine Large (Negative); Mucus,Urine Rare /hpf; Nitrite,Urine Negative (Negative); Protein,Urine 1+ (Negative); RBC,Urine 17 /hpf (0-5); Specific Gravity,Urine 1.016 (1.001-1.035); Urobilinogen,Urine <2.0 mg/dL (<2.0); WBC,Urine >182 /hpf (0-5)
[2019-08-01] MEDS ORDERED: cefTRIAXone IN SWFI 1,000 MG/10 ML SYRINGE IVP STA (12:46)
[2019-08-01] MEDS ORDERED: KETOROLAC 30 MG/ML 1 ML VIAL IM STA (13:46)
[2019-08-01] MEDS ORDERED: KETOROLAC 30 MG/ML 1 ML VIAL IVP STA (13:48)
[2019-08-01] MEDS ORDERED: SODIUM CHLORIDE 0.9% 500 ML 500 ML IV ONE (15:11)
[2019-08-01] MEDS: SODIUM CHLORIDE 0.9% 1,000 ML IV SCH ×2 (15:22→22:32)
[2019-08-01] MEDS ORDERED: IPRATROPIUM-ALBUTEROL 3 ML NEB INHALATION PRN (15:34)
--- NOTE | 2019-08-01 15:37 | P.HPIM ---
History of Present Illness This is a pleasant 84 years old female with past medical history of CVA/TIA, hyperlipidemia, bradycardia with pacemaker since 06/2019, UTI. Patient presents with dyspnea of one-day duration associated with dry cough but no chest pain. Patient was noticed to have fever at home however she denies diarrhea, she did not notice urinary symptoms however her urine was cloudy 1 is collected and sample is suspicious for urinary tract infection. She she denies back tenderness and on exam she has no costovertebral angle tenderness. She denies weakness or numbness. No headache. No rash. She's EX smoker, quit months ago. No alcohol or illicit drugs. She follows with Dr. Meier refer her to urologist, however she does not know why she was referred to urologist. She sees Dr. Montenegro for bradycardia and pacemaker inserted the last June. She takes Eliquis 2.5 mg twice daily but she does not know why. On the presentation patient was febrile at 100.9, with left showing leukocytosis of 20 K, rest of CBC, BMP and liver enzymes were not elevated. Urine analysis is suspicious for infection. Lactic acid is elevated at 7.0. EKG: Shows sinus tachycardia with PVCs and fusion complex, heart rate of 126, QTC is 544. Chest x-ray: No acute process. COPD On admission patient was started on aspirin 325 mg and Rocephin 1 g daily also she received 1 L of normal saline. Review of Systems CONSTITUTIONAL: No fever, no malaise, no fatigue. HEENT: No recent visual problems or hearing problems. Denied any sore throat. CARDIOVASCULAR: No orthopnea, PND, no palpitations, no syncope. PULMONARY: No shortness of breath, no cough, no hemoptysis. GASTROINTESTINAL: No diarrhea, no nausea, no vomiting, no abdominal pain. Normoactive bowel sounds. NEUROLOGICAL: No headaches, no weakness, no numbness. HEMATOLOGICAL: Denies any bleeding or petechiae. GENITOURINARY: Denies any burning micturition, frequency, or urgency. MUSCULOSKELETAL/RHEUMATOLOGICAL: Denies any joint pain, swelling, or any muscle pain. ENDOCRINE: Denies any polyuria or polydipsia. Past Medical History Past Medical History: CVA/TIA, Hyperlipidemia Additional Past Medical History / Comment(s): TIA 02/11/19-no residual effects, bradycardia with pacemaker, UTI History of Any Multi-Drug Resistant Organisms: None Reported Past Surgical History: Appendectomy, Hernia Repair, Hysterectomy, Pacemaker Additional Past Surgical History / Comment(s): 02/2019 Loop recorder, 05/14/19 pacemaker, abdominal hernia, bilateral cataract removal Past Anesthesia/Blood Transfusion Reactions: No Reported Reaction Type of Cardiac Device: Loop, Permanent Pacemaker Device Placement Date:: loop 02/2019, pacer 05/14/19 Smoking Status: Former smoker - Past Family History Mother Family Medical History: Cancer Additional Family Medical History / Comment(s): Brain cancer. Father Family Medical History: Cancer Additional Family Medical History / Comment(s): Liver cancer Medications and Allergies Home Medications Medication Instructions Recorded Confirmed Type Aspirin 81 mg PO DAILY #30 chew 02/13/19 08/01/19 Rx Atorvastatin [Lipitor] 20 mg PO DAILY 05/09/19 08/01/19 History Apixaban [Eliquis] 2.5 mg PO BID 08/01/19 08/01/19 History Ipratropium/Albuterol Sulfate 1 puff INHALATION RT-QID 08/01/19 08/01/19 History [Combivent Respimat Inhaler] Metoprolol Succinate [Toprol XL] 12.5 mg PO DAILY 08/01/19 08/01/19 History Allergies Allergy/AdvReac Type Severity Reaction Status Date / Time Sulfa (Sulfonamide Allergy Unknown Verified 08/01/19 13:14 Antibiotics) metformin AdvReac Unknown Diarrhea Verified 08/01/19 13:14 Physical Exam Vitals: Vital Signs Temp Pulse Pulse Resp BP Pulse Ox 08/01/19 14:31 94 20 105/58 95 08/01/19 14:21 93 L 08/01/19 14:18 91 L 08/01/19 13:39 100.9 F H 91 18 132/94 95 08/01/19 12:13 93 18 121/67 98 08/01/19 11:08 94 08/01/19 10:33 98.7 F 71 20 110/63 95 Intake and Output 07/31/19 08/01/19 08/01/19 22:59 06:59 14:59 Other: Weight 49.895 kg GENERAL: The patient is alert and oriented x3, not in any acute distress. Well developed, well nourished. HEENT: Pupils are round and equally reacting to light. EOMI. No scleral icterus. No conjunctival pallor. Normocephalic, atraumatic. No pharyngeal erythema. No thyromegaly. CARDIOVASCULAR: S1 and S2 present. No murmurs, rubs, or gallops. -PULMONARY: Chest is clear to auscultation, very few wheezing. ABDOMEN: Soft, nontender, nondistended, normoactive bowel sounds. No palpable organomegaly. MUSCULOSKELETAL: No joint swelling or deformity. EXTREMITIES: No cyanosis, clubbing, or pedal edema. NEUROLOGICAL: Gross neurological examination did not reveal any focal deficits. SKIN: No rashes. No petechiae Results CBC & Chem 7: 08/01/19 11:15 08/01/19 11:15 Labs: Abnormal Lab Results - Last 24 Hours (Table) 08/01/19 08/01/19 08/01/19 Range/Units 11:00 11:15 11:15 WBC 22.0 H (3.8-10.6) k/uL Neutrophils # 19.0 H (1.3-7.7) k/uL Lymphocytes # 0.7 L (1.0-4.8) k/uL Monocytes # 1.6 H (0-1.0) k/uL BUN 26 H (7-17) mg/dL Glucose 137 H (74-99) mg/dL Plasma Lactic Acid Rachid (0.7-2.0) mmol/L Alkaline Phosphatase 144 H (38-126) U/L Urine Appearance Turbid H (Clear) Urine Protein 1+ H (Negative) Urine Blood Moderate H (Negative) Ur Leukocyte Esterase Large H (Negative) Urine RBC 17 H (0-5) /hpf Urine WBC >182 H (0-5) /hpf Urine WBC Clumps Many H (None) /hpf Urine Bacteria Many H (None) /hpf Urine Mucus Rare H (None) /hpf 08/01/19 Range/Units 13:55 WBC (3.8-10.6) k/uL Neutrophils # (1.3-7.7) k/uL Lymphocytes # (1.0-4.8) k/uL Monocytes # (0-1.0) k/uL BUN (7-17) mg/dL Glucose (74-99) mg/dL Plasma Lactic Acid Rachid 7.0 H* (0.7-2.0) mmol/L Alkaline Phosphatase (38-126) U/L Urine Appearance (Clear) Urine Protein (Negative) Urine Blood (Negative) Ur Leukocyte Esterase (Negative) Urine RBC (0-5) /hpf Urine WBC (0-5) /hpf Urine WBC Clumps (None) /hpf Urine Bacteria (None) /hpf Urine Mucus (None) /hpf Thrombosis Risk Factor Assmnt - Choose All That Apply Any of the Below Risk Factors Present?: Yes Other Risk Factors: Yes Each Risk Factor Represents 3 Points: Age 75 years or older Other congenital or acquired thrombophilia - If yes, enter type in comment: No Thrombosis Risk Factor Assessment Total Risk Factor Score: 3 Thrombosis Risk Factor Assessment Level: Moderate Risk Assessment and Plan Assessment: Acute Pyelonephritis Systemic inflammatory response with fever, leukocytosis, tachycardia Sepsis secondary to both Acute COPD exacerbation Elevated lactic acid Abnormal EKG with fusion complexes and elevated QTC at 544 Bradycardia status post pacemaker Hyperlipidemia History of CVA/TIA Plan: This is a pleasant 84 years old female who presents with possible pyelonephritis and COPD exacerbation. Continue with antibiotics. Pulmonary consult. Follow- up culture results. Continue with IV hydration. Cardiology consult has already called from EGD. Telemetry. Continue with steroids and bronchodilators. Follow-up lactic acid Labs and medication were reviewed.. Continue same treatment. Continue with symptomatic treatment. Resume home medication. Monitor lytes and vitals. DVT and GI prophylaxis. Further recommendations of the clinical course of the patient DVT prophylaxis: Eliquis GI Prophylaxis: Pepcid PT/OT: Pending Prognosis is guarded
[2019-08-01] MEDS: SODIUM CHLORIDE 0.9% 1,000 ML IV ONE ×2 (15:51→15:56)
[2019-08-01] MEDS ORDERED: methylPREDNISolone SOD SUCCI 40 MG/ML 1 ML VIAL IV SCH (16:00)
[2019-08-01] MEDS ORDERED: APIXABAN 2.5 MG TABLET PO SCH (21:00)
[2019-08-01] MEDS ORDERED: APIXABAN 5 MG TAB PO SCH (21:00)
[2019-08-01] MEDS ORDERED: HEPARIN SODIUM,PORCINE 5,000 UNIT/ML 1 ML VIAL IV ONE (22:09)
[2019-08-01] MEDS: FAMOTIDINE 20 MG/2 ML VIAL IV SCH (22:29)
[2019-08-01] MEDS: HEPARIN SOD,PORK IN 0.45% NACL 25,000 UNIT in 0.45% NACL 1 250ML.BAG IV SCH (22:30)
[2019-08-01] MEDS: DOXYCYCLINE 100 MG CAP PO SCH (23:02)
--- NOTE | 2019-08-02 00:39 | US ---
EXAMINATION TYPE: US renals and bladder DATE OF EXAM: 08/01/2019 COMPARISON: NONE CLINICAL HISTORY: pylonephritis . Pyelonephritis. EXAM MEASUREMENTS: Right Kidney: 12.5 x 5.6 x 4.5 cm Left Kidney: 13.0 x 5.8 x 4.9 cm Right Kidney: Renal pelvis appears to be dilated. Measures upper limits of normal vs. minimally enlar ged. Left Kidney: No hydronephrosis or masses seen. Measures slightly enlarged. Bladder: Appears to be anechoic. Bilateral Jets seen: Left jet seen Incidental finding: Multiple hyperechoic foci with posterior shadowing seen within the gallbladder. IMPRESSION: There is mild right-sided hydronephrosis. No renal mass seen. No ureteral jet seen on the right side that is suggestive of obstruction. Numerous gallstones noted.
[2019-08-02 04:24] LABS: Cholesterol 84 mg/dL (<200); HDL Cholesterol 32 mg/dL (40-60); LDL Cholesterol,Calculated 39 mg/dL (0-99); Triglycerides 67 mg/dL (<150)
[2019-08-02 04:39] LABS: Basophils % (A) 0 %; Eosinophils % (A) 0 %; HCT 31.3 % (34.0-46.0); Hypochromasia Slight; Lymphocytes # (A) 0.6 k/uL (1.0-4.8); Lymphocytes % (A) 3 %; MCH 29.9 pg (25.0-35.0); MCV 93.4 fL (80.0-100.0); Mean Platelet Volume 8.3; Monocytes # (A) 0.9 k/uL (0-1.0); Monocytes % (A) 4 %; Neutrophils # (A) 18.1 k/uL (1.3-7.7); Neutrophils % (A) 92 %; Platelet Count 351 k/uL (150-450); RBC 3.36 m/uL (3.80-5.40); RDW 13.6 % (11.5-15.5); WBC 19.7 k/uL (3.8-10.6)
--- NOTE | 2019-08-02 08:57 | P.CRDCN ---
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 Patient has a history of nicotine dependence, she states that she quit smoking in February of this year, history of a TIA, left bundle-branch block, patient also had a loop recorder with subsequent implantation of a permanent pacemaker in June for severe bradycardia, Mobitz type II AV block. According to the patient, since then she states that she has not felt well, has intermittent chest discomfort. An overall feels felt extremely tired. He presents to the hospital on this occasion with an episode of left-sided chest pain which she describes as a poking-type pain that felt like a pin poking her. She also states that she felt chills at home and may have had a mild fever. Her chest x-ray on presentation here showed stable borderline heart size, stable pleural parenchymal obesity in the left base, COPD. Her EKG on presentation here showed a sinus tachycardia with left bundle branch block pattern and frequent PVCs. Renal ultrasound showed mild right-sided hydronephrosis. No renal mass seen. No ureteral jet skiing on the right side suggestive of obstruction, numerous gallstones noted. Blood pressure 108/60 with a heart rate in the 70s, 97% on 3 L of oxygen. White blood cell count on presentation here was 22, 19.7 this morning, hemoglobin on arrival 12.2, 10.0 this morning, platelet count 351. Sodium 138, potassium 3.8, BUN 26, creatinine 0.7. Plasma lactic acid 7 on admission, 2.5 this morning. Troponins 0.020, 0.086, 0.050. Positive UTI. Blood pressure on arrival here 110/60 with a heart rate in the 70s, patient did have a temperature of 100.9. Afebrile this morning. At the time of my examination this morning, patient is currently chest pain-free, no complaints. Past Medical History Past Medical History: CVA/TIA, Hyperlipidemia Additional Past Medical History / Comment(s): TIA 02/11/19-no residual effects, bradycardia with pacemaker, UTI History of Any Multi-Drug Resistant Organisms: None Reported Past Surgical History: Appendectomy, Hernia Repair, Hysterectomy, Pacemaker Additional Past Surgical History / Comment(s): 02/2019 Loop recorder, 05/14/19 pacemaker, abdominal hernia, bilateral cataract removal Past Anesthesia/Blood Transfusion Reactions: No Reported Reaction Type of Cardiac Device: Loop, Permanent Pacemaker Device Placement Date:: loop 02/2019, pacer 05/14/19 Smoking Status: Former smoker - Past Family History Mother Family Medical History: Cancer Additional Family Medical History / Comment(s): Brain cancer. Father Family Medical History: Cancer Additional Family Medical History / Comment(s): Liver cancer Medications and Allergies Home Medications Medication Instructions Recorded Confirmed Type Aspirin 81 mg PO DAILY #30 chew 02/13/19 08/01/19 Rx Atorvastatin [Lipitor] 20 mg PO DAILY 05/09/19 08/01/19 History Apixaban [Eliquis] 2.5 mg PO BID 08/01/19 08/01/19 History Ipratropium/Albuterol Sulfate 1 puff INHALATION RT-QID 08/01/19 08/01/19 History [Combivent Respimat Inhaler] Metoprolol Succinate [Toprol XL] 12.5 mg PO DAILY 08/01/19 08/01/19 History Allergies Allergy/AdvReac Type Severity Reaction Status Date / Time Sulfa (Sulfonamide Allergy Unknown Verified 08/01/19 13:14 Antibiotics) metformin AdvReac Unknown Diarrhea Verified 08/01/19 13:14 Physical Exam Vitals: Vital Signs Temp Pulse Pulse Pulse Resp BP BP 08/02/19 03:50 98.0 F 86 20 118/68 08/02/19 00:00 98.6 F 94 20 120/57 08/01/19 21:30 98.4 F 101 H 22 132/65 08/01/19 20:46 98.2 F 08/01/19 20:38 93 16 118/62 08/01/19 18:30 91 20 120/68 08/01/19 16:20 96 20 107/51 08/01/19 15:25 100.4 F H 71 18 144/60 08/01/19 14:31 94 20 105/58 08/01/19 14:21 08/01/19 14:18 08/01/19 13:39 100.9 F H 91 18 132/94 08/01/19 12:13 93 18 121/67 08/01/19 11:08 94 08/01/19 10:33 98.7 F 71 20 110/63 Pulse Ox 08/02/19 03:50 98 08/02/19 00:00 96 08/01/19 21:30 97 08/01/19 20:46 08/01/19 20:38 98 08/01/19 18:30 98 08/01/19 16:20 98 08/01/19 15:25 96 08/01/19 14:31 95 08/01/19 14:21 93 L 08/01/19 14:18 91 L 08/01/19 13:39 95 08/01/19 12:13 98 08/01/19 11:08 08/01/19 10:33 95 Intake and Output 08/01/19 08/02/19 08/02/19 22:59 06:59 14:59 Intake Total 35.822 Balance 35.822 Intake: Intake, IV Titration 35.822 Amount Heparin Sod,Pork in 0.45% 35.822 NaCl 25,000 unit In 0.45 % NaCl 1 250ml.bag @ 12 UNITS/KG/HR 5.987 mls/hr IV .Q24H [facility] Rx#: [id number] Other: Voiding Method Toilet Toilet # Voids 1 Weight 52.8 kg PHYSICAL EXAMINATION: GENERAL: 84-year-old female in no acute distress at the time of my examination HEENT: Head is atraumatic, normocephalic. Pupils equal, round. Sclera anicteric. Conjunctiva are clear. Mucous membranes of the mouth are moist. Neck is supple. There is no elevated jugular venous pressure. No carotid bruit is heard. HEART EXAMINATION: Heart S1, S2 normal. No murmur or gallop heard. CHEST EXAMINATION: Lungs are clear to auscultation and precussion. No chest wall tenderness is noted on palpation or with deep breathing. ABDOMEN: Soft, nontender. Bowel sounds are heard. No organomegaly noted. EXTREMITIES: 2+ peripheral pulses with no evidence of peripheral edema and no calf tenderness noted. NEUROLOGIC patient is awake, alert and oriented 3 . . Results 08/02/19 03:47 08/01/19 11:15 Cardiac Enzymes 08/01/19 08/01/19 08/01/19 Range/Units 11:15 11:15 17:36 AST 24 (14-36) U/L Troponin I 0.020 0.086 H* (0.000-0.034) ng/mL 08/01/19 Range/Units 22:03 AST (14-36) U/L Troponin I 0.050 H* (0.000-0.034) ng/mL Coagulation 08/01/19 08/02/19 Range/Units 11:15 03:47 PT 10.7 (9.0-12.0) sec APTT 25.6 34.0 H (22.0-30.0) sec Lipids 08/02/19 Range/Units 03:47 Triglycerides 67 (<150) mg/dL Cholesterol 84 (<200) mg/dL HDL Cholesterol 32 L (40-60) mg/dL CBC 08/01/19 08/02/19 Range/Units 11:15 03:47 WBC 22.0 H 19.7 H (3.8-10.6) k/uL RBC 4.11 3.36 L (3.80-5.40) m/uL Hgb 12.2 10.0 L D (11.4-16.0) gm/dL Hct 37.7 31.3 L (34.0-46.0) % Plt Count 425 351 (150-450) k/uL Comprehensive Metabolic Panel 08/01/19 Range/Units 11:15 Sodium 138 (137-145) mmol/L Potassium 3.8 (3.5-5.1) mmol/L Chloride 99 (98-107) mmol/L Carbon Dioxide 28 (22-30) mmol/L BUN 26 H (7-17) mg/dL Creatinine 0.77 (0.52-1.04) mg/dL Glucose 137 H (74-99) mg/dL Calcium 9.4 (8.4-10.2) mg/dL AST 24 (14-36) U/L ALT 12 (4-34) U/L Alkaline Phosphatase 144 H (38-126) U/L Total Protein 6.5 (6.3-8.2) g/dL Albumin 3.5 (3.5-5.0) g/dL Current Medications Generic Name Dose Route Start Last Admin Trade Name Freq PRN Reason Stop Dose Admin Albuterol/Ipratropium 3 ml 08/01/19 15:34 Duoneb 0.5 Mg-3 Mg/3 Ml Soln INHALATION RT-QID PRN Shortness Of Breath Or Wheezing Aspirin 81 mg 08/02/19 09:00 Aspirin PO DAILY [facility] Atorvastatin Calcium 20 mg 08/02/19 09:00 Lipitor PO DAILY [facility] Doxycycline Monohydrate 100 mg 08/01/19 21:00 08/01/19 23:02 Vibramycin PO 08/06/19 21:01 100 mg BID [facility] Administration Famotidine 20 mg 08/01/19 21:00 08/01/19 22:29 Pepcid IV 20 mg Q12HR [facility] Administration Heparin Sodium (Porcine) 0 unit 08/01/19 22:09 Heparin IV PER PROTOCOL PRN Low PTT Protocol Sodium Chloride 1,000 mls @ 100 mls/hr 08/01/19 15:00 08/01/19 22:32 Saline 0.9% IV 100 mls/hr .Q10H [facility] Administration Ceftriaxone Sodium 2 gm/ 50 mls @ 100 mls/hr 08/02/19 09:00 Sodium Chloride IVPB Q24HR [facility] Heparin Sodium/Sodium Chloride 250 mls @ 5.987 mls/hr 08/01/19 22:15 08/02/19 04:29 25,000 unit/ Sodium Chloride IV 15 units/kg/hr .Q24H [facility] 7.484 mls/hr Titration Protocol 12 UNITS/KG/HR Methylprednisolone Sodium Succinate 40 mg 08/02/19 09:00 Solu-Medrol IV Q12HR [facility] Metoprolol Succinate 12.5 mg 08/02/19 09:00 Toprol Xl PO DAILY [facility] Intake and Output 08/01/19 08/02/19 08/02/19 22:59 06:59 14:59 Intake Total 35.822 Balance 35.822 Intake: Intake, IV Titration 35.822 Amount Heparin Sod,Pork in 0.45% 35.822 NaCl 25,000 unit In 0.45 % NaCl 1 250ml.bag @ 12 UNITS/KG/HR 5.987 mls/hr IV .Q24H [facility] Rx#: [id number] Other: Voiding Method Toilet Toilet # Voids 1 Weight 52.8 kg 08/02/19 03:47 08/01/19 11:15 EKG Interpretations (text) EKG shows a sinus tachycardia, left bundle-branch block pattern, frequent PVCs Assessment and Plan Plan: Assessment and plan #1 atypical chest pain, EKG shows a sinus tachycardia with a left bundle-branch block pattern and frequent PVCs. Troponins 0.020, 0.086, 0.050. Although patie nt's symptoms are very atypical for acute coronary syndrome, cannot completely rule out acute coronary syndrome. Abnormality in troponin could also be secondary to infection. #2 permanent pacemaker implantation for Mobitz2 in June of this year #3 acute polynephritis with evidence of fever and leukocytosis, tachycardia, elevated lactic acid #4 COPD #5 nicotine dependence, patient states she quit smoking in February #6 hyperlipidemia #7 history of TIA Plan We will repeat patient's echocardiogram with Doppler study. We will also replace the patient's potassium. Patient has been initiated on IV antibiotics for the polynephritis. Interrogate pacemaker. Decrease aspirin to 81 mg daily, continue Lipitor, continue metoprolol. Consider further cardiac workup once the infection clears. Further recommendations to follow. DNP note has been reviewed, I agree with a documented findings and plan of care. Patient was seen and examined.
[2019-08-02] MEDS ORDERED: ASPIRIN 325 MG TAB PO SCH (09:00)
[2019-08-02] MEDS: ATORVASTATIN 20 MG TAB PO SCH (09:03)
[2019-08-02] MEDS: FAMOTIDINE 20 MG/2 ML VIAL IV SCH (09:03)
[2019-08-02] MEDS: DOXYCYCLINE 100 MG CAP PO SCH ×2 (09:03→20:40)
[2019-08-02] MEDS: METOPROLOL SUCCINATE (ER) 25 MG TAB.ER.24H PO SCH (09:03)
[2019-08-02] MEDS: methylPREDNISolone SOD SUCCI 40 MG/ML 1 ML VIAL IV SCH ×2 (09:12→20:10)
[2019-08-02] MEDS: ASPIRIN 81 MG PO SCH (09:13)
--- NOTE | 2019-08-02 11:53 | P.PN ---
Subjective This is a pleasant 84 years old female with past medical history of CVA/TIA, hyperlipidemia, bradycardia with pacemaker since 06/2019, UTI. Patient presents with dyspnea of one-day duration associated with dry cough but no chest pain. Patient was noticed to have fever at home however she denies diarrhea, she did not notice urinary symptoms however her urine was cloudy 1 is collected and sample is suspicious for urinary tract infection. She she denies back tenderness and on exam she has no costovertebral angle tenderness. She denies weakness or numbness. No headache. No rash. She's EX smoker, quit months ago. No alcohol or illicit drugs. She follows with Dr. Meier refer her to urologist, however she does not know why she was referred to urologist. She sees Dr. Montenegro for bradycardia and pacemaker inserted the last June. She takes Eliquis 2.5 mg twice daily but she does not know why. On the presentation patient was febrile at 100.9, with left showing leukocytosis of 20 K, rest of CBC, BMP and liver enzymes were not elevated. Urine analysis is suspicious for infection. Lactic acid is elevated at 7.0. EKG: Shows sinus tachycardia with PVCs and fusion complex, heart rate of 126, QTC is 544. Chest x-ray: No acute process. COPD On admission patient was started on aspirin 325 mg and Rocephin 1 g daily also she received 1 L of normal saline. 08/02/2019 Patient is awake and alert. No chest pain. Her dyspnea is significantly better. No coughing. No suprapubic tenderness or back pain or flank pain. Vitals are stable with no more fever. She is saturating well at 97% on 3 L oxygen. Obesity came down to 19.7. She was started on heparin drip and her PTT is therapeutic. Lactic acid came back to normal at 1.1. Renal ultrasound showing mild hydronephrosis and a consult has been placed for urologist and infectious disease. Exhibition Specialist evaluated the patient for possible acute coronary syndrome although it felt less likely by shear operator helper, patient was started on heparin drip. Pacemaker will be interrogated. Aspirin is decreased to 81 mg daily. And they think with cardiology workup once infection is cleared. Review of systems CONSTITUTIONAL: No fever, no malaise, no fatigue. HEENT: No recent visual problems or hearing problems. Denied any sore throat. CARDIOVASCULAR: No orthopnea, PND, no palpitations, no syncope. PULMONARY: No shortness of breath, no cough, no hemoptysis. GASTROINTESTINAL: No diarrhea, no nausea, no vomiting, no abdominal pain. Normoactive bowel sounds. NEUROLOGICAL: No headaches, no weakness, no numbness. HEMATOLOGICAL: Denies any bleeding or petechiae. GENITOURINARY: Denies any burning micturition, frequency, or urgency. MUSCULOSKELETAL/RHEUMATOLOGICAL: Denies any joint pain, swelling, or any muscle pain. ENDOCRINE: Denies any polyuria or polydipsia. Active Medications Generic Name Dose Route Start Last Admin Trade Name Freq PRN Reason Stop Dose Admin Albuterol/Ipratropium 3 ml 08/01/19 15:34 Duoneb 0.5 Mg-3 Mg/3 Ml Soln INHALATION RT-QID PRN Shortness Of Breath Or Wheezing Aspirin 81 mg 08/02/19 09:00 08/02/19 09:13 Aspirin PO 81 mg DAILY LORRAINE Administration Atorvastatin Calcium 20 mg 08/02/19 09:00 08/02/19 09:03 Lipitor PO 20 mg DAILY LORRAINE Administration Doxycycline Monohydrate 100 mg 08/01/19 21:00 08/02/19 09:03 Vibramycin PO 08/06/19 21:01 100 mg BID LORRAINE Administration Famotidine 20 mg 08/01/19 21:00 08/02/19 09:03 Pepcid IV 20 mg Q12HR LORRAINE Administration Heparin Sodium (Porcine) 0 unit 08/01/19 22:09 Heparin IV PER PROTOCOL PRN Low PTT Protocol Sodium Chloride 1,000 mls @ 100 mls/hr 08/01/19 15:00 08/01/19 22:32 Saline 0.9% IV 100 mls/hr .Q10H LORRAINE Administration Heparin Sodium/Sodium Chloride 250 mls @ 5.987 mls/hr 08/01/19 22:15 08/02/19 04:29 25,000 unit/ Sodium Chloride IV 15 units/kg/hr .Q24H LORRAINE 7.484 mls/hr Titration Protocol 12 UNITS/KG/HR Ceftriaxone Sodium 2 gm/ 50 mls @ 100 mls/hr 08/03/19 09:00 Sodium Chloride IVPB Q24HR LORRAINE Methylprednisolone Sodium Succinate 40 mg 08/02/19 09:00 12/27/19 09:12 Solu-Medrol IV 40 mg Q12HR LORRAINE Administration Metoprolol Succinate 12.5 mg 08/02/19 09:00 08/02/19 09:03 Toprol Xl PO 12.5 mg DAILY LORRAINE Administration Potassium Chloride 20 meq 08/02/19 12:00 K-Dur 20 PO 08/02/19 16:01 Q2HR LORRAINE Objective - Vital Signs Vital signs: Vital Signs Temp 97.7 F 08/02/19 11:43 Pulse 68 08/02/19 11:43 Resp 14 08/02/19 11:43 BP 116/55 08/02/19 11:43 Pulse Ox 97 08/02/19 08:00 Intake & Output 08/01/19 08/02/19 08/02/19 18:59 06:59 18:59 Intake Total 35.822 0 Output Total 600 Balance 35.822 -600 Weight 49.895 kg 52.8 kg Intake: Intake, IV Titration 35.822 Amount Heparin Sod,Pork in 0.45% 35.822 NaCl 25,000 unit In 0.45 % NaCl 1 250ml.bag @ 12 UNITS/KG/HR 5.987 mls/hr IV .Q24H LORRAINE Rx#: [id number] Oral 0 Output: Urine 600 Other: Voiding Method Toilet # Voids 1 1 # Bowel Movements 0 - Exam GENERAL: The patient is alert and oriented x3, not in any acute distress. Well developed, well nourished. HEENT: Pupils are round and equally reacting to light. EOMI. No scleral icterus. No conjunctival pallor. Normocephalic, atraumatic. No pharyngeal erythema. No thyromegaly. CARDIOVASCULAR: S1 and S2 present. No murmurs, rubs, or gallops. PULMONARY: Chest is clear to auscultation, no wheezing or crackles. ABDOMEN: Soft, nontender, nondistended, normoactive bowel sounds. No palpable organomegaly. MUSCULOSKELETAL: No joint swelling or deformity. EXTREMITIES: No cyanosis, clubbing, or pedal edema. NEUROLOGICAL: Gross neurological examination did not reveal any focal deficits. SKIN: No rashes. no petechiae. - Labs CBC & Chem 7: 08/02/19 03:47 08/01/19 11:15 Labs: Abnormal Lab Results - Last 24 Hours (Table) 08/01/19 08/01/19 08/01/19 Range/Units 11:00 11:15 13:55 WBC (3.8-10.6) k/uL RBC (3.80-5.40) m/uL Hgb (11.4-16.0) gm/dL Hct (34.0-46.0) % Neutrophils # (1.3-7.7) k/uL Lymphocytes # (1.0-4.8) k/uL APTT (22.0-30.0) sec BUN 26 H (7-17) mg/dL Glucose 137 H (74-99) mg/dL Plasma Lactic Acid Rachid 7.0 H* (0.7-2.0) mmol/L Alkaline Phosphatase 144 H (38-126) U/L Troponin I (0.000-0.034) ng/mL HDL Cholesterol (40-60) mg/dL Urine Appearance Turbid H (Clear) Urine Protein 1+ H (Negative) Urine Blood Moderate H (Negative) Ur Leukocyte Esterase Large H (Negative) Urine RBC 17 H (0-5) /hpf Urine WBC >182 H (0-5) /hpf Urine WBC Clumps Many H (None) /hpf Urine Bacteria Many H (None) /hpf Urine Mucus Rare H (None) /hpf 08/01/19 08/01/19 08/01/19 Range/Units 17:10 17:36 22:03 WBC (3.8-10.6) k/uL RBC (3.80-5.40) m/uL Hgb (11.4-16.0) gm/dL Hct (34.0-46.0) % Neutrophils # (1.3-7.7) k/uL Lymphocytes # (1.0-4.8) k/uL APTT (22.0-30.0) sec BUN (7-17) mg/dL Glucose (74-99) mg/dL Plasma Lactic Acid Rachid 2.3 H* (0.7-2.0) mmol/L Alkaline Phosphatase (38-126) U/L Troponin I 0.086 H* 0.050 H* (0.000-0.034) ng/mL HDL Cholesterol (40-60) mg/dL Urine Appearance (Clear) Urine Protein (Negative) Urine Blood (Negative) Ur Leukocyte Esterase (Negative) Urine RBC (0-5) /hpf Urine WBC (0-5) /hpf Urine WBC Clumps (None) /hpf Urine Bacteria (None) /hpf Urine Mucus (None) /hpf 08/01/19 08/02/19 08/02/19 Range/Units 22:03 03:47 03:47 WBC (3.8-10.6) k/uL RBC (3.80-5.40) m/uL Hgb (11.4-16.0) gm/dL Hct (34.0-46.0) % Neutrophils # (1.3-7.7) k/uL Lymphocytes # (1.0-4.8) k/uL APTT 34.0 H (22.0-30.0) sec BUN (7-17) mg/dL Glucose (74-99) mg/dL Plasma Lactic Acid Rachid 2.5 H* (0.7-2.0) mmol/L Alkaline Phosphatase (38-126) U/L Troponin I (0.000-0.034) ng/mL HDL Cholesterol 32 L (40-60) mg/dL Urine Appearance (Clear) Urine Protein (Negative) Urine Blood (Negative) Ur Leukocyte Esterase (Negative) Urine RBC (0-5) /hpf Urine WBC (0-5) /hpf Urine WBC Clumps (None) /hpf Urine Bacteria (None) /hpf Urine Mucus (None) /hpf 08/02/19 08/02/19 Range/Units 03:47 09:48 WBC 19.7 H (3.8-10.6) k/uL RBC 3.36 L (3.80-5.40) m/uL Hgb 10.0 L D (11.4-16.0) gm/dL Hct 31.3 L (34.0-46.0) % Neutrophils # 18.1 H (1.3-7.7) k/uL Lymphocytes # 0.6 L (1.0-4.8) k/uL APTT 38.8 H (22.0-30.0) sec BUN (7-17) mg/dL Glucose (74-99) mg/dL Plasma Lactic Acid Rachid (0.7-2.0) mmol/L Alkaline Phosphatase (38-126) U/L Troponin I (0.000-0.034) ng/mL HDL Cholesterol (40-60) mg/dL Urine Appearance (Clear) Urine Protein (Negative) Urine Blood (Negative) Ur Leukocyte Esterase (Negative) Urine RBC (0-5) /hpf Urine WBC (0-5) /hpf Urine WBC Clumps (None) /hpf Urine Bacteria (None) /hpf Urine Mucus (None) /hpf Microbiology - Last 24 Hours (Table) 08/01/19 13:55 Blood Culture Gram Stain - Preliminary Blood 08/01/19 13:55 Blood Culture - Final Blood 08/01/19 11:00 Urine Culture - Preliminary Urine,Voided Assessment and Plan Assessment: Acute Pyelonephritis Systemic inflammatory response with fever, leukocytosis, tachycardia Sepsis secondary to both Mild right hydronephrosis Elevated troponin, suspicious for acute coronary syndrome Mild Acute COPD exacerbation Elevated lactic acid, came back to normal Abnormal EKG with fusion complexes and elevated QTC at 544 Bradycardia status post pacemaker Hyperlipidemia History of CVA/TIA Plan: This is a pleasant 84 years old female who presents with possible pyelonephritis and COPD exacerbation. Continue with antibiotics, ceftriaxone,, with IV hydration. Switch Eliquis 2 heparin drip and cardiology following the patient for pacemaker interrogation and possible cardiac workup was infection is controlled. Consult neurologist and ID. Follow-up culture Labs and medication were reviewed.. Continue same treatment. Continue with sy mptomatic treatment. Resume home medication. Monitor lytes and vitals. DVT and GI prophylaxis. Further recommendations of the clinical course of the patient DVT prophylaxis: Heparin GI Prophylaxis: Pepcid PT/OT: Pending Prognosis is guarded
[2019-08-02] MEDS: POTASSIUM CHLORIDE ER 20 MEQ TAB.ER PO SCH ×3 (12:37→17:19)
--- NOTE | 2019-08-02 13:23 | CT ---
EXAMINATION TYPE: CT angio chest DATE OF EXAM: 08/02/2019 COMPARISON: None HISTORY: Elevated d-dimer CONTRAST: CT chest with contrast and 3D reconstruction with MIP imaging is performed with IV Contrast, patient injected with 100 mL of Isovue 300. Contrast-enhanced CT of the chest was performed through the course of the pulmonary arteries with luli g and mediastinal window settings submitted. 3D reconstruction with MIP imaging was also performed. PULMONARY ARTERIES: The pulmonary arteries and their major tributaries are patent. I do not see gabriel dence for sizable filling defect to suggest pulmonary embolic process. LUNGS: There is soft tissue noted within the left infrahilar region anterior to the descending thorac ic aorta measuring 3.4 x 2.1 cm. This could reflect conglomerate adenopathy however mass is not exclu ded. Appropriate follow-up is advised. There are small left-sided pleural effusion mild compressive a telectasis. MEDIASTINUM: Thoracic aorta is of normal caliber,however, evaluation is limited given ti matteo of the contrast bolus. If there is concern for thoracic aortic pathology consider RISA. Correla te clinically . The heart is not enlarged. No evidence for mediastinal mass. No mediastinal lymph n odes greater than 1cm. HILAR STRUCTURES: No evidence for mass. No hilar lymph nodes greater than 1 cm. UPPER ABDOMEN: No significant abnormality is seen. IMPRESSION: 1. No evidence for Pulmonary embolism at this time. 2.There is soft tissue noted within the left infrahilar region anterior to the descending thoracic ao rta measuring 3.4 x 2.1 cm. This could reflect conglomerate adenopathy however mass is not excluded. Appropriate follow-up is advised.
[2019-08-02] MEDS: HEPARIN SODIUM,PORCINE 5,000 UNIT/ML 1 ML VIAL IV PRN (13:40)
--- NOTE | 2019-08-02 14:29 | P.GSCN ---
History of Present Illness Consult date: 08/02/19 History of present illness: This is a pleasant 84-year-old female who came in the hospital because of abdominal pain and malaise apparent dry cough. The patient was in her usual state of health until Monday and she started developed some left upper quadrant and left flank pain. Her daughter came to visit and the patient became febrile. She threw up. Her pain became progressively worse and she presented to the emergency room. In the emergency room she had a urinalysis suggestive of infection. Her white blood cell count was elevated at 19,000. She had a low-g rade fever at home. He was brought in to evaluate the cough the flank pain and the abnormal urine. An ultrasound of the abdomen suggested some mild hydronephrosis on the left side. The patient is feeling better today. The patient had a computed tomography scan of the chest that did not show any left- sided hydro-in the upper half of the kidney seen on the CAT scan. Patient states that over she had blood in the urine and went to the urgent care. He was told that she had a urinary tract infection however apparently the culture was negative. She saw Dr. Meier and was referred to our office for urologic consultation for August 08. Prior to this is no history of infections. There is no history of stones. Her son did have a stone. No history urologic issues. She has had no lower urinary tract symptoms during this hospitalization or prior. Review of Systems All systems: negative - Constitutional Denies fever, Denies weight loss - EENT Eyes: denies blurred vision Ears, nose, mouth and throat: Denies dysphagia - Cardiovascular Denies chest pain, Denies shortness of breath - Respiratory Denies cough, Denies 7 - Gastrointestinal Reports as per HPI - Genitourinary Genitourinary: Denies dysuria, Denies hematuria - Integumentary Denies rash, Denies unusual bruising - Neurological Denies headaches, Denies syncope - Hematologic/Lymphatic Denies easy bleeding, Denies easy bruising Past Medical History Past Medical History: CVA/TIA, Hyperlipidemia Additional Past Medical History / Comment(s): TIA 02/11/19-no residual effects, bradycardia with pacemaker, UTI History of Any Multi-Drug Resistant Organisms: None Reported Past Surgical History: Appendectomy, Hernia Repair, Hysterectomy, Pacemaker Additional Past Surgical History / Comment(s): 02/2019 Loop recorder, 05/14/19 pacemaker, abdominal hernia, bilateral cataract removal Past Anesthesia/Blood Transfusion Reactions: No Reported Reaction Type of Cardiac Device: Loop, Permanent Pacemaker Device Placement Date:: loop 02/2019, pacer 05/14/19 Smoking Status: Former smoker - Past Family History Mother Family Medical History: Cancer Additional Family Medical History / Comment(s): Brain cancer. Father Family Medical History: Cancer Additional Family Medical History / Comment(s): Liver cancer Medications and Allergies Home Medications Medication Instructions Recorded Confirmed Type Aspirin 81 mg PO DAILY #30 chew 02/13/19 08/01/19 Rx Atorvastatin [Lipitor] 20 mg PO DAILY 05/09/19 08/01/19 History Apixaban [Eliquis] 2.5 mg PO BID 08/01/19 08/01/19 History Ipratropium/Albuterol Sulfate 1 puff INHALATION RT-QID 08/01/19 08/01/19 History [Combivent Respimat Inhaler] Metoprolol Succinate [Toprol XL] 12.5 mg PO DAILY 08/01/19 08/01/19 History Allergies Allergy/AdvReac Type Severity Reaction Status Date / Time Sulfa (Sulfonamide Allergy Unknown Verified 08/01/19 13:14 Antibiotics) metformin AdvReac Unknown Diarrhea Verified 08/01/19 13:14 Surgical - Exam Vital Signs Temp Pulse Resp BP Pulse Ox 98.7 F 71 20 110/63 95 08/01/19 10:33 08/01/19 10:33 08/01/19 10:33 08/01/19 10:33 08/01/19 10:33 - General well developed, well nourished, no distress - Eyes PERRL - ENT no hearing loss - Neck trachea midline - Respiratory normal expansion, normal respiratory effort - Cardiovascular Rhythm: regular - Abdomen Abdomen: soft, non tender - Integumentary no rash, no growths - Neurologic normal coordination, normal sensation - Musculoskeletal normal posture - Psychiatric oriented to time, oriented to person, oriented to place, speech is normal, memory intact Results - Labs 08/02/19 03:47 08/01/19 11:15 Abnormal Lab Results - Last 24 Hours (Table) 08/01/19 08/01/19 08/01/19 Range/Units 13:55 17:10 17:36 WBC (3.8-10.6) k/uL RBC (3.80-5.40) m/uL Hgb (11.4-16.0) gm/dL Hct (34.0-46.0) % Neutrophils # (1.3-7.7) k/uL Lymphocytes # (1.0-4.8) k/uL APTT (22.0-30.0) sec D-Dimer (<0.60) mg/L FEU Plasma Lactic Acid Rachid 7.0 H* 2.3 H* (0.7-2.0) mmol/L Troponin I 0.086 H* (0.000-0.034) ng/mL HDL Cholesterol (40-60) mg/dL 08/01/19 08/01/19 08/02/19 Range/Units 22:03 22:03 03:47 WBC (3.8-10.6) k/uL RBC (3.80-5.40) m/uL Hgb (11.4-16.0) gm/dL Hct (34.0-46.0) % Neutrophils # (1.3-7.7) k/uL Lymphocytes # (1.0-4.8) k/uL APTT (22.0-30.0) sec D-Dimer (<0.60) mg/L FEU Plasma Lactic Acid Rachid 2.5 H* (0.7-2.0) mmol/L Troponin I 0.050 H* (0.000-0.034) ng/mL HDL Cholesterol 32 L (40-60) mg/dL 08/02/19 08/02/19 08/02/19 Range/Units 03:47 03:47 09:48 WBC 19.7 H (3.8-10.6) k/uL RBC 3.36 L (3.80-5.40) m/uL Hgb 10.0 L D (11.4-16.0) gm/dL Hct 31.3 L (34.0-46.0) % Neutrophils # 18.1 H (1.3-7.7) k/uL Lymphocytes # 0.6 L (1.0-4.8) k/uL APTT 34.0 H 38.8 H (22.0-30.0) sec D-Dimer (<0.60) mg/L FEU Plasma Lactic Acid Rachid (0.7-2.0) mmol/L Troponin I (0.000-0.034) ng/mL HDL Cholesterol (40-60) mg/dL 08/02/19 Range/Units 09:48 WBC (3.8-10.6) k/uL RBC (3.80-5.40) m/uL Hgb (11.4-16.0) gm/dL Hct (34.0-46.0) % Neutrophils # (1.3-7.7) k/uL Lymphocytes # (1.0-4.8) k/uL APTT (22.0-30.0) sec D-Dimer 0.81 H (<0.60) mg/L FEU Plasma Lactic Acid Rachid (0.7-2.0) mmol/L Troponin I (0.000-0.034) ng/mL HDL Cholesterol (40-60) mg/dL Microbiology - Last 24 Hours (Table) 08/01/19 13:55 Blood Culture Gram Stain - Preliminary Blood Blood Culture - Preliminary Escherichia coli 08/01/19 13:55 Blood Culture - Final Blood 08/01/19 11:00 Urine Culture - Preliminary Urine,Voided Diabetes panel 08/02/19 Range/Units 03:47 Triglycerides 67 (<150) mg/dL HDL Cholesterol 32 L (40-60) mg/dL - Imaging CT scan - chest: report reviewed, image reviewed US - abdomen: report reviewed, image reviewed Assessment and Plan Assessment: Impression: Probable urinary tract infection, pyelonephritis left kidney. Possible obstruction. Recommendations: I will obtain a computed tomography scan, kidney stone protocol to make sure there is no obstructing stone that would require earlier intervention. If there is no obstruction then IV antibiotics until cultures back would be appropriate. The patient would need a cystoscopy as an outpatient
--- NOTE | 2019-08-02 15:37 | CT ---
EXAMINATION TYPE: CT abdomen pelvis wo con DATE OF EXAM: 08/02/2019 COMPARISON: None HISTORY: LT sided hydronephrosis on US, urine inf. CT DLP: 413.9 mGycm Examination of the solid and hollow viscera is limited given the lack of contrast. FINDINGS: LUNG BASES: No evidence for nodule. No evidence for infiltrate. LIVER/GB: There is evidence of cholelithiasis without wall thickening. No space-occupying hepatic les ion. PANCREAS: No pancreatic mass identified. No inflammatory process seen. SPLEEN: No evidence for splenomegaly. No intrasplenic lesions seen. ADRENALS: No adrenal nodules identified. No evidence for thickening. KIDNEYS: Striated enhancement pattern of the right kidney and to a lesser extent the left kidney comp atible with pyelonephritis. Contrast is noted within the renal collecting system from prior CT from [place] in the day. No evidence for renal mass. No nephrolithiasis. No hydronephrosis. BOWEL: Appendix has a normal appearance. No evidence of bowel obstruction. No inflammatory process. Lymph nodes: No evidence for adenopathy greater than 1 cm. Abdominal aorta: Atheromatous changes seen. No evidence for aneurysm. Genital organs: No significant abnormality. Other: No significant abnormality. IMPRESSION: 1. Striated enhancement pattern of both kidneys right greater than left felt to reflect pyelonephriti s. 2. Cholelithiasis.
[2019-08-02] MEDS: SODIUM CHLORIDE 0.9% 1,000 ML IV SCH ×2 (17:19→20:11)
--- NOTE | 2019-08-02 19:31 | ECHOF ---
Referral Reason:Rule out heart disease, elevated troponin MEASUREMENTS -------- HEIGHT: 132.1 cm WEIGHT: 52.6 kg BP: RVIDd: 3.6 cm (< 3.3) IVSd: 1.1 cm (0.6 - 1.1) LVIDd: 4.0 cm (3.9 - 5.3) LVPWd: 1.1 cm (0.6 - 1.1) IVSs: 1.5 cm LVIDs: 3.9 cm LVPWs: 1.1 cm LA Diam: 5.0 cm (2.7 - 3.8) LAESV Index (A-L): 45.69 ml/m Ao Diam: 3.5 cm (2.0 - 3.7) AV Cusp: 1.7 cm (1.5 - 2.6) LA Diam: 3.7 cm (2.7 - 3.8) MV EXCURSION: 14.230 mm (> 18.000) MV EF SLOPE: 66 mm/s (70 - 150) EPSS: 0.6 cm MV E Tyrone: 0.53 m/s MV DecT: 219 ms MV A Tyrone: 0.87 m/s MV E/A Ratio: 0.62 RAP: 15.00 mmHg RVSP: 65.60 mmHg FINDINGS -------- Sinus rhythm. This was a technically adequate study. The left ventricular size is normal. Left ventricular wall thickness is normal. Overall left vent ricular systolic function is low-normal with, an EF between 50 - 55 %. Apical anterior LV wall al on is hypokinetic. Apical septum LV wall motion is hypokinetic. The right ventricle is normal in size. LA is severely dilated >40 ml/m2 The right atrial size is normal. There is mild aortic valve sclerosis. There is no evidence of aortic regurgitation. Mild mitral annular calcification present. [id number] mitral regurgitation is present. Moderate to severe tricuspid regurgitation present. There is moderate to severe pulmonary hypertens ion. The right ventricular systolic pressure, as measured by Doppler, is 65.60mmHg. Trace/mild (physiologic) pulmonic regurgitation. The aortic root size is normal. There is no pericardial effusion. CONCLUSIONS -------- 1. Sinus rhythm. 2. This was a technically adequate study. 3. The left ventricular size is normal. 4. Left ventricular wall thickness is normal. 5. Overall left ventricular systolic function is low-normal with, an EF between 50 - 55 %. 6. Apical anterior LV wall motion is hypokinetic. 7. Apical septum LV wall motion is hypokinetic. 8. LA is severely dilated >40 ml/m2 9. There is mild aortic valve sclerosis. 10. Mild mitral annular calcification present. 11. [id number] mitral regurgitation is present. 12. Moderate to severe tricuspid regurgitation present. 13. There is moderate to severe pulmonary hypertension. 14. Trace/mild (physiologic) pulmonic regurgitation. 15. The aortic root size is normal. 16. There is no pericardial effusion. CONTROL SYSTEMS SPECIALIST: Caitie Chavez RDCS
[2019-08-03] MEDS: HEPARIN SOD,PORK IN 0.45% NACL 25,000 UNIT in 0.45% NACL 1 250ML.BAG IV SCH (00:33)
[2019-08-03] MEDS: SODIUM CHLORIDE 0.9% 1,000 ML IV SCH ×3 (04:34→23:38)
[2019-08-03] MEDS: HEPARIN SODIUM,PORCINE 5,000 UNIT/ML 1 ML VIAL IV PRN (04:39)
[2019-08-03 06:54] LABS: Basophils % (A) 0 %; Eosinophils % (A) 0 %; HCT 29.9 % (34.0-46.0); HGB 9.2 gm/dL (11.4-16.0); Hypochromasia Moderate; Lymphocytes # (A) 0.5 k/uL (1.0-4.8); Lymphocytes % (A) 3 %; MCH 29.3 pg (25.0-35.0); MCHC 30.7 g/dL (31.0-37.0); MCV 95.5 fL (80.0-100.0); Mean Platelet Volume 8.1; Monocytes # (A) 0.8 k/uL (0-1.0); Monocytes % (A) 5 %; Neutrophils # (A) 15.3 k/uL (1.3-7.7); Neutrophils % (A) 91 %; Platelet Count 385 k/uL (150-450); RBC 3.13 m/uL (3.80-5.40); RDW 13.8 % (11.5-15.5); WBC 16.7 k/uL (3.8-10.6)
[2019-08-03 07:19] LABS: African American GFR (CKD) >90 (>60 ml/min/1.73 sqM); Anion Gap 5 mmol/L; Blood Urea Nitrogen 21 mg/dL (7-17); Calcium 8.9 mg/dL (8.4-10.2); Carbon Dioxide 26 mmol/L (22-30); Chloride 112 mmol/L (98-107); Glucose 143 mg/dL (74-99); Non-African American GFR(CKD) 86 (>60 ml/min/1.73 sqM); Potassium 4.5 mmol/L (3.5-5.1); Sodium 143 mmol/L (137-145)
[2019-08-03] MEDS: ATORVASTATIN 20 MG TAB PO SCH (09:36)
[2019-08-03] MEDS: ASPIRIN 81 MG PO SCH (09:36)
[2019-08-03] MEDS: FAMOTIDINE 20 MG TAB PO SCH (09:36)
[2019-08-03] MEDS: METOPROLOL SUCCINATE (ER) 25 MG TAB.ER.24H PO SCH (09:36)
[2019-08-03] MEDS: DOXYCYCLINE 100 MG CAP PO SCH ×2 (09:38→21:11)
[2019-08-03] MEDS: methylPREDNISolone SOD SUCCI 40 MG/ML 1 ML VIAL IV SCH ×2 (09:39→20:39)
--- NOTE | 2019-08-03 11:12 | CONS ---
CONSULTATION DATE OF SERVICE: August 02, 2019. REASON FOR CONSULTATION: Pyelonephritis. HISTORY OF PRESENT ILLNESS: The patient is an 84-year-old female with chief complaints of left lower chest pain. Apparently the patient's symptoms started on Monday that is 3 days before presentation to hospital. The patient described it to be more of a dull, aching with no radiation and no worsening deep breath or coughing. The patient also complaining of feeling weak and tired and did have a low-grade fever. The patient denies having any abdominal pain though or any diarrhea. Did have slight urinary frequency but no burning. With these symptoms, the patient has been evaluated by the ER physician. On arrival to the ER, the patient did have a low-grade fever of 100.9-100.4. The patient did have a positive UA with large leukocyte esterase, more than 1-2 WBC and white count was elevated 22,000. The patient did have a chest x-ray which shows stable borderline heart size, stable pleural parenchymal opacity, and COPD. Renal ultrasound was done as well which shows mild right-sided hydronephrosis, no renal mass and numerous gallstones noted. The patient was started on Rocephin. Subsequently the blood cultures coming back positive with gram-negative bacilli that prompted this Infectious Disease consultation. REVIEW OF SYSTEMS: CONSTITUTIONAL: Positive for weakness and low-grade fever. EYES: No complaint. ENT no complaint. RESPIRATORY as per HPI. CARDIOVASCULAR: No complaint. GENITOURINARY: As per HPI. GASTROINTESTINAL: No complaint. Musculoskeletal no complaint. Integumentary: No complaint. PSYCHIATRIC: No complaint. ENDOCRINE: No complaint. NEUROLOGICAL no complaint. PAST MEDICAL HISTORY: CVA, TIA, chronic arrhythmia. PAST SURGICAL HISTORY: Hernia repair, hysterectomy, appendectomy and bilateral cataract surgery. Loop recorder. SOCIAL HISTORY: Remote history of smoking. No drinking or drug use. FAMILY HISTORY: No pertinent findings noticed. ALLERGIES: TO SULFA. MEDICATIONS: Include the patient is currently on DuoNeb, aspirin, Lipitor, Rocephin 2 g daily, doxycycline, Pepcid, heparin, Solu-Medrol, Toprol-XL. PHYSICAL EXAMINATION: Blood pressure is 133/79, pulse of 90, temperature 98.8. She is 96% on 3 L nasal cannula. General description is an elderly female lying in bed in no distress. No tachypnea or accessory muscles of respiration use. HEENT: Shows slight pallor. No scleral icterus. Oral mucosal membranes are dry. No pharyngeal erythema or thrush. Neck: Trachea central. No thyromegaly. Lungs unlabored breathing. Decreased breath sounds in the base, with no wheeze or crackles. Heart S1, S2. Regular rate and rhythm. ABDOMEN: Soft, no tenderness. No guarding or rigidity. Extremities: No edema of the feet. Skin examination: No rash or mass palpable. Neurological: Patient is awake, alert and oriented times three. Mood and affect normal. LABS: Hemoglobin is 10 with a white count 19.7. BUN of 26, creatinine 0.77, troponin mildly elevated. UA was positive blood with E. coli urine showing gram-negative bacilli. Ultrasound with right-sided hydronephrosis. DIAGNOSTIC IMPRESSION AND PLAN: Patient admitted to hospital with sepsis in this patient who did have a fever and elevated white count. Source is likely urine now with evidence of a gram negative bacteremia likely complicated urinary tract infection as the patient's ultrasound did show right-sided hydronephrosis. PLAN: 1. Rocephin 2 g daily. 2. Gentle IV fluids. 3. We will follow up on clinical condition as well as cultures to further adjust medication if needed. Thank you for this consultation. We will follow this patient along with you. MMODL / IJN: [id number] /
--- NOTE | 2019-08-03 12:57 | P.PN ---
Progress Note - Text Progress Note Date: 08/03/19 The patient is feeling well and has no complaints. She is afebrile. Her WBC count is gradually improving and today was 16.7. Preliminary urine and blood cultures showed E. coli. The computed tomography scan shows patchy renal enhancement, particularly on the right side, consistent with pyelonephritis. There was no evidence of hydronephrosis or urolithiasis. I would suggest that IV antibiotics be continued, and she can be switched over to an appropriate oral antibiotic once the culture results are completed. She will follow up with Dr. Boogie is an outpatient. Please notify me if we can be of any further assistance during this hospitalization.
--- NOTE | 2019-08-03 13:12 | P.CNPUL ---
History of Present Illness Consult date: 08/03/19 Requesting physician: Janak E Sheet Reason for consult: abnormal CXR/CT Chief complaint: Weakness, fatigue History of present illness: This is a very pleasant 84-year-old female patient who follows with Dr. Meier as her primary care provider Abilio she has a history of TIA in February 2019, jie ycardia with Mobitz type II AV block permanent pacemaker implantation in May 2019, hyperlipidemia. She had recently developed increased weakness and was in bed for nearly 3 days this week according to her daughter. She states she was somewhat dusky and vaughan at times as well. The patient initially refused to see a physician or come to the hospital but on 08/01/2019 she was brought in by her family. Chest x-ray revealed COPD but no acute pulmonary process. There is a stable pleural parenchymal opacity and left lung base representing most likely scarring. The patient does have a 60+ year smoking history and quit February 2019. She had not been seen by a drill press hand in the past. She has a albuterol inhaler that she infrequently uses. Initial white count 22.0. Lactic acid 2.5. Troponin 0.050. Urine culture positive for gram-negative bacilli. Blood cultures are now positive for E. coli. He was initiated on ceftriaxone and doxycycline. She was started on IV Solu-Medrol and bronchodilators. CT angiogram was performed yesterday that revealed no evidence of pulmonary emboli. There was however noted soft tissue density in the left infrahilar region anterior to the descending thoracic aorta measuring 3.4 x 2.1 cm. This could reflect conglomerate adenopathy however mass is not excluded. We were consulted today for the same. She is seen on the selective care unit. Awake and alert in no acute distress. Sitting up at the bedside. Denies any worsening shortness of breath cough or congestion. Never hemoptysis. She is maintaining O2 saturation in the mid 90s on 3 L/m per nasal cannula. She's been afebrile. Hemodynamically stable. Current white count 16.7. Hemoglobin 9.2. Creatinine 0.59. Review of Systems REVIEW OF SYSTEMS: CONSTITUTIONAL: Denies any recent significant weight loss or weight gain. EYES: Denies change in vision. EARS, NOSE, MOUTH, THROAT: Denies headaches, denies sore throat. CARDIOVASCULAR: Left-sided chest pain, palpitations no syncopal episodes. RESPIRATORY: Positive for shortness of breath, no cough, congestion or hemoptysis. GASTROINTESTINAL: Denies change in appetite, denies abdominal pain GENITOURINARY: Denies hematuria, denies infections. MUSKULOSKELETAL: Denies pain, denies swelling. INTEGUMENTARY: Denies rash, denies eczema. NEUROLOGICAL: Denies recent memory loss, no recent seizure activity. PSYCHIATRIC: Denies anxiety, denies depression. HEMATOLOGIC/LYMPHATIC: Denies anemia, denies enlarged lymph nodes. Past Medical History Past Medical History: CVA/TIA, Hyperlipidemia Additional Past Medical History / Comment(s): TIA 02/11/19-no residual effects, bradycardia with pacemaker, UTI History of Any Multi-Drug Resistant Organisms: None Reported Past Surgical History: Appendectomy, Hernia Repair, Hysterectomy, Pacemaker Additional Past Surgical History / Comment(s): 02/2019 Loop recorder, 05/14/19 pacemaker, abdominal hernia, bilateral cataract removal Past Anesthesia/Blood Transfusion Reactions: No Reported Reaction Type of Cardiac Device: Loop, Permanent Pacemaker Device Placement Date:: loop 02/2019, pacer 05/14/19 Smoking Status: Former smoker - Past Family History Mother Family Medical History: Cancer Additional Family Medical History / Comment(s): Brain cancer. Father Family Medical History: Cancer Additional Family Medical History / Comment(s): Liver cancer Medications and Allergies Home Medications Medication Instructions Recorded Confirmed Type Aspirin 81 mg PO DAILY #30 chew 02/13/19 08/01/19 Rx Atorvastatin [Lipitor] 20 mg PO DAILY 05/09/19 08/01/19 History Apixaban [Eliquis] 2.5 mg PO BID 08/01/19 08/01/19 History Ipratropium/Albuterol Sulfate 1 puff INHALATION RT-QID 08/01/19 08/01/19 History [Combivent Respimat Inhaler] Metoprolol Succinate [Toprol XL] 12.5 mg PO DAILY 08/01/19 08/01/19 History Allergies Allergy/AdvReac Type Severity Reaction Status Date / Time Sulfa (Sulfonamide Allergy Unknown Verified 08/01/19 13:14 Antibiotics) metformin AdvReac Unknown Diarrhea Verified 08/01/19 13:14 Physical Exam Vitals: Vital Signs Temp Pulse Pulse Resp BP Pulse Ox 08/03/19 04:00 98.6 F 80 18 138/92 97 08/03/19 00:57 97.8 F 64 20 155/83 95 08/02/19 20:37 94 L 08/02/19 20:11 98.8 F 90 16 133/79 96 08/02/19 16:27 88 16 08/02/19 16:16 90 16 08/02/19 15:59 87 14 08/02/19 15:40 97.9 F 87 14 146/66 Intake and Output 08/02/19 08/03/19 08/03/19 22:59 06:59 14:59 Intake Total 725.064 479.499 100 Output Total 400 400 Balance 325.064 479.499 -300 Intake: Intake, IV Titration 264.064 479.499 Amount Heparin Sod,Pork in 0.45% 64.064 79.499 NaCl 25,000 unit In 0.45 % NaCl 1 250ml.bag @ 12 UNITS/KG/HR 5.987 mls/hr IV .Q24H [facility] Rx#: [id number] Sodium Chloride 0.9% 1, 400 000 ml @ 100 mls/hr IV . Q10H [facility] Rx#:[id number] cefTRIAXone 2 gm In 200 Sodium Chloride 0.9% 50 ml @ 100 mls/hr IVPB Q24HR [facility] Rx#:[id number] Oral 461 100 Output: Urine 400 400 Other: Voiding Method Toilet Toilet # Voids 1 # Bowel Movements 0 Weight 55.5 kg GENERAL EXAM: Alert, pleasant 84-year-old female patient, on 3 L nasal cannula, comfortable in no apparent distress. HEAD: Normocephalic. EYES: Normal reaction of pupils, equal size. NOSE: Clear with pink turbinates. THROAT: No erythema or exudates. NECK: No masses, no JVD. CHEST: No chest wall deformity. LUNGS: Equal air entry with no crackles, wheeze, rhonchi or dullness. CVS: S1 and S2 normal with no audible murmur, regular rhythm. ABDOMEN: No hepatosplenomegaly, normal bowel sounds, no guarding or rigidity. SPINE: No scoliosis or deformity SKIN: No rashes CENTRAL NERVOUS SYSTEM: No focal deficits, tone is normal in all 4 extremities. EXTREMITIES: There is no peripheral edema. No clubbing, no cyanosis. Peripheral pulses are intact. Results - Laboratory Findings CBC and BMP: 08/03/19 06:12 08/03/19 06:12 PT/INR, D-dimer PT 10.7 sec (9.0-12.0) 08/01/19 11:15 INR 1.0 (<1.2) 08/01/19 11:15 D-Dimer 0.81 mg/L FEU (<0.60) H 08/02/19 09:48 Abnormal lab findings: Abnormal Labs 08/01/19 08/01/19 08/01/19 11:00 11:15 11:15 WBC 22.0 H RBC Hgb Hct MCHC Neutrophils # 19.0 H Lymphocytes # 0.7 L Monocytes # 1.6 H APTT D-Dimer Chloride BUN 26 H Glucose 137 H Plasma Lactic Acid Rachid Alkaline Phosphatase 144 H Troponin I HDL Cholesterol Urine Appearance Turbid H Urine Protein 1+ H Urine Blood Moderate H Ur Leukocyte Esterase Large H Urine RBC 17 H Urine WBC >182 H Urine WBC Clumps Many H Urine Bacteria Many H Urine Mucus Rare H 08/01/19 08/01/19 08/01/19 13:55 17:10 17:36 WBC RBC Hgb Hct MCHC Neutrophils # Lymphocytes # Monocytes # APTT D-Dimer Chloride BUN Glucose Plasma Lactic Acid Rachid 7.0 H* 2.3 H* Alkaline Phosphatase Troponin I 0.086 H* HDL Cholesterol Urine Appearance Urine Protein Urine Blood Ur Leukocyte Esterase Urine RBC Urine WBC Urine WBC Clumps Urine Bacteria Urine Mucus 08/01/19 08/01/19 08/02/19 22:03 22:03 03:47 WBC RBC Hgb Hct MCHC Neutrophils # Lymphocytes # Monocytes # APTT D-Dimer Chloride BUN Glucose Plasma Lactic Acid Rachid 2.5 H* Alkaline Phosphatase Troponin I 0.050 H* HDL Cholesterol 32 L Urine Appearance Urine Protein Urine Blood Ur Leukocyte Esterase Urine RBC Urine WBC Urine WBC Clumps Urine Bacteria Urine Mucus 08/02/19 08/02/19 08/02/19 03:47 03:47 09:48 WBC 19.7 H RBC 3.36 L Hgb 10.0 L D Hct 31.3 L MCHC Neutrophils # 18.1 H Lymphocytes # 0.6 L Monocytes # APTT 34.0 H 38.8 H D-Dimer Chloride BUN Glucose Plasma Lactic Acid Rachid Alkaline Phosphatase Troponin I HDL Cholesterol Urine Appearance Urine Protein Urine Blood Ur Leukocyte Esterase Urine RBC Urine WBC Urine WBC Clumps Urine Bacteria Urine Mucus 08/02/19 08/02/19 08/03/19 09:48 19:55 02:57 WBC RBC Hgb Hct MCHC Neutrophils # Lymphocytes # Monocytes # APTT 44.1 H 45.8 H D-Dimer 0.81 H Chloride BUN Glucose Plasma Lactic Acid Rachid Alkaline Phosphatase Troponin I HDL Cholesterol Urine Appearance Urine Protein Urine Blood Ur Leukocyte Esterase Urine RBC Urine WBC Urine WBC Clumps Urine Bacteria Urine Mucus 08/03/19 08/03/19 08/03/19 06:12 06:12 10:57 WBC 16.7 H RBC 3.13 L Hgb 9.2 L Hct 29.9 L MCHC 30.7 L Neutrophils # 15.3 H Lymphocytes # 0.5 L Monocytes # APTT 53.6 H D-Dimer Chloride 112 H BUN 21 H Glucose 143 H Plasma Lactic Acid Rachid Alkaline Phosphatase Troponin I HDL Cholesterol Urine Appearance Urine Protein Urine Blood Ur Leukocyte Esterase Urine RBC Urine WBC Urine WBC Clumps Urine Bacteria Urine Mucus Assessment and Plan Assessment: 1 Profound weakness, fever and fatigue secondary to bacteremia with E. coli 2 Urinary tract infection secondary to gram-negative bacilli 3 Left perihilar soft tissue measuring 3.4 x 2.1 anterior to the descending thoracic aorta. Suspicious for conglomerate adenopathy versus mass 4 50+ pack per day smoking history, quit February 2019 5 Moderate to severe mitral regurgitation 6 Moderate to severe pulmonary hypertension 7 Severe bradycardia with Mobitz type II AV block, status post permanent pacemaker implantation May 2019 8 History of TIA 9 Hyperlipidemia Plan The patient was seen and evaluated by Dr. Anne. Chest x-ray, CAT scans and labs all reviewed Periaortic nonspecific soft tissue not reachable via bronchoscope Consult thoracic surgery Repeat computed tomography scan in 4 months Infectious disease for bacteremia/UTI currently on ceftriaxone and doxycycline We will continue to follow make further recommendations based on her clinical status I, the cosigning physician, performed a history & physical examination of the patient. Lungs sounds are clear. Maintaining good O2 saturations in the 90s on 3 L/m per nasal cannula I discussed the assessment and plan of care with my nurse practitioner, Evangelian Dueñas. I attest to the above consultation as dictated by her. Time with Patient: Greater than 30
--- NOTE | 2019-08-03 13:37 | P.PN ---
Subjective Progress Note Date: 08/03/19 Principal diagnosis: chest pain PROGRESS NOTE: 08/03/2019 84-year-old female follows with Dr. Doan in the office. Patient has history of smoking, TIA, left bundle branch block, loop recorder implantation and most recent permanent pacemaker in June for severe bradycardia with Mobitz type II AV block. Patient is seen this day in no acute distress sitting at bedside visiting with family. Patient has no current complaints of chest pain, chest pressure, shortness of breath or palpitations. No current acute cardiology process. Continues SR with LBBB controlled rate. Patient continues with IV antibiotics and lactic acid has much improved. Vital signs stable. Echo reveals EF 50-55%. PHYSICAL EXAMINATION: HEENT: Head is atraumatic, normocephalic. Pupils are equal, round. Sclerae anicteric. Conjunctivae are clear. Mucous membranes of the mouth are moist. Neck is supple. There is no jugular venous distention. No carotid bruit is heard. No thyromegaly. LUNGS: Clear to auscultation no wheezes, rales or rhonchi. No chest wall tenderness is noted on palpation or with deep breathing. HEART: Regular rate and rhythm without murmurs, rubs or gallops. S1 and S2 heard. ABDOMEN: Abdominal exam revealed normal bowel sounds. The abdomen was soft, non- tender, and without masses, organomegaly, or appreciable enlargement of the abdominal aorta. EXTREMITIES: Examination of the extremities revealed easily palpable radial, femoral and pedal pulses. There was no cyanosis, clubbing or edema. No calf tenderness noted. VASCULAR: Radial and dorsalis pedis pulses palpated, no evidence of clubbing. NEUROLOGIC: Patient is awake, alert and oriented x3. There were no obvious focal neurologic abnormalities. LAB DATA: FINAL IMPRESSION: 1. Atypical chest pain, currently resolved. 2. PPM secondary to Mobitz type 2 block 3. Loop recorder implant 4. COPD with smoking history 5. UTI with elevated lactic acid - resolved PLAN: Continue Eliquis 2.5 mg twice daily. DC IV heparin. Increase metoprolol tartrate 25 mg twice daily. Patient to follow-up in office and have outpatient stress test once infectious process has resolved. Will follow on a PRN basis. Objective - Vital Signs Vital signs: Vital Signs Temp 98.6 F 08/03/19 04:00 Pulse 80 08/03/19 04:00 Resp 18 08/03/19 04:00 BP 138/92 08/03/19 04:00 Pulse Ox 97 08/03/19 04:00 Intake & Output 08/02/19 08/03/19 08/03/19 18:59 06:59 18:59 Intake Total 528.73 743.563 100 Output Total 900 400 400 Balance -371.27 343.563 -300 Weight 55.5 kg Intake: Intake, IV Titration 67.73 743.563 Amount Heparin Sod,Pork in 0.45% 67.73 143.563 NaCl 25,000 unit In 0.45 % NaCl 1 250ml.bag @ 12 UNITS/KG/HR 5.987 mls/hr IV .Q24H [facility] Rx#: [id number] Sodium Chloride 0.9% 1, 400 000 ml @ 100 mls/hr IV . Q10H [facility] Rx#:[id number] cefTRIAXone 2 gm In 200 Sodium Chloride 0.9% 50 ml @ 100 mls/hr IVPB Q24HR [facility] Rx#:[id number] Oral 461 100 Output: Urine 900 400 400 Other: Voiding Method Toilet Toilet # Voids 1 1 # Bowel Movements 0 0 - Labs CBC & Chem 7: 08/03/19 06:12 08/03/19 06:12 Labs: Abnormal Lab Results - Last 24 Hours (Table) 08/02/19 08/03/19 08/03/19 Range/Units 19:55 02:57 06:12 WBC 16.7 H (3.8-10.6) k/uL RBC 3.13 L (3.80-5.40) m/uL Hgb 9.2 L (11.4-16.0) gm/dL Hct 29.9 L (34.0-46.0) % MCHC 30.7 L (31.0-37.0) g/dL Neutrophils # 15.3 H (1.3-7.7) k/uL Lymphocytes # 0.5 L (1.0-4.8) k/uL APTT 44.1 H 45.8 H (22.0-30.0) sec Chloride (98-107) mmol/L BUN (7-17) mg/dL Glucose (74-99) mg/dL 08/03/19 08/03/19 Range/Units 06:12 10:57 WBC (3.8-10.6) k/uL RBC (3.80-5.40) m/uL Hgb (11.4-16.0) gm/dL Hct (34.0-46.0) % MCHC (31.0-37.0) g/dL Neutrophils # (1.3-7.7) k/uL Lymphocytes # (1.0-4.8) k/uL APTT 53.6 H (22.0-30.0) sec Chloride 112 H (98-107) mmol/L BUN 21 H (7-17) mg/dL Glucose 143 H (74-99) mg/dL Microbiology - Last 24 Hours (Table) 08/01/19 13:55 Blood Culture Gram Stain - Preliminary Blood Blood Culture - Preliminary Escherichia coli 08/01/19 11:00 Urine Culture - Preliminary Urine,Voided Gram Neg Bacilli
--- NOTE | 2019-08-03 13:43 | P.PN ---
Subjective This is a pleasant 84 years old female with past medical history of CVA/TIA, hyperlipidemia, bradycardia with pacemaker since 06/2019, UTI. Patient presents with dyspnea of one-day duration associated with dry cough but no chest pain. Patient was noticed to have fever at home however she denies diarrhea, she did not notice urinary symptoms however her urine was cloudy 1 is collected and sample is suspicious for urinary tract infection. She she denies back tenderness and on exam she has no costovertebral angle tenderness. She denies weakness or numbness. No headache. No rash. She's EX smoker, quit months ago. No alcohol or illicit drugs. She follows with Dr. Meier refer her to urologist, however she does not know why she was referred to urologist. She sees Dr. Montenegro for bradycardia and pacemaker inserted the last June. She takes Eliquis 2.5 mg twice daily but she does not know why. On the presentation patient was febrile at 100.9, with left showing leukocytosis of 20 K, rest of CBC, BMP and liver enzymes were not elevated. Urine analysis is suspicious for infection. Lactic acid is elevated at 7.0. EKG: Shows sinus tachycardia with PVCs and fusion complex, heart rate of 126, QTC is 544. Chest x-ray: No acute process. COPD On admission patient was started on aspirin 325 mg and Rocephin 1 g daily also she received 1 L of normal saline. 08/02/2019 Patient is awake and alert. No chest pain. Her dyspnea is significantly better. No coughing. No suprapubic tenderness or back pain or flank pain. Vitals are stable with no more fever. She is saturating well at 97% on 3 L oxygen. Obesity came down to 19.7. She was started on heparin drip and her PTT is therapeutic. Lactic acid came back to normal at 1.1. Renal ultrasound showing mild hydronephrosis and a consult has been placed for urologist and infectious disease. Grades 9 12 Tutor evaluated the patient for possible acute coronary syndrome although it felt less likely by senior database administrator, patient was started on heparin drip. Pacemaker will be interrogated. Aspirin is decreased to 81 mg daily. And they think with cardiology workup once infection is cleared. 08/03/2019 Patient is awake. She denies chest pain. She still little dyspneic and ta chypneic but states she is improving. Vitals are stable. Leukocytosis improvement to 16.7 K. Lactic acid to normal and creatinine within normal limits. Troponin are elevated with trending of 0.02, 0.08, and 0.05. Echocardiogram from yesterday was showing ejection fraction of 50-55%, and apical anterior wall motion is hypokinetic with apical septum LV wall motion is hypokinetic. CT of the chest showed possible lung mass. Pulmonary consult was placed. Also she has positive blood culture for E. coli and infectious disease tomorrow consulted. Patient was updated with her medical problems however she was upset, please see addendum which is mistakenly placed on yesterday note Review of systems CONSTITUTIONAL: No fever, no malaise, no fatigue. HEENT: No recent visual problems or hearing problems. Denied any sore throat. CARDIOVASCULAR: No orthopnea, PND, no palpitations, no syncope. PULMONARY: No shortness of breath, no cough, no hemoptysis. GASTROINTESTINAL: No diarrhea, no nausea, no vomiting, no abdominal pain. Normoactive bowel sounds. NEUROLOGICAL: No headaches, no weakness, no numbness. HEMATOLOGICAL: Denies any bleeding or petechiae. GENITOURINARY: Denies any burning micturition, frequency, or urgency. MUSCULOSKELETAL/RHEUMATOLOGICAL: Denies any joint pain, swelling, or any muscle pain. ENDOCRINE: Denies any polyuria or polydipsia. Active Medications Generic Name Dose Route Start Last Admin Trade Name Freq PRN Reason Stop Dose Admin Albuterol/Ipratropium 3 ml 08/01/19 15:34 08/02/19 16:15 Duoneb 0.5 Mg-3 Mg/3 Ml Soln INHALATION 3 ml RT-QID PRN Administration Shortness Of Breath Or Wheezing Apixaban 2.5 mg 08/03/19 11:45 Eliquis PO BID LORRAINE Aspirin 81 mg 08/02/19 09:00 08/03/19 09:36 Aspirin PO 81 mg DAILY LORRAINE Administration Atorvastatin Calcium 20 mg 08/02/19 09:00 08/03/19 09:36 Lipitor PO 20 mg DAILY LORRAINE Administration Doxycycline Monohydrate 100 mg 08/01/19 21:00 08/03/19 09:38 Vibramycin PO 08/06/19 21:01 100 mg BID LORRAINE Administration Famotidine 20 mg 08/03/19 09:00 08/03/19 09:36 Pepcid PO 20 mg DAILY LORRAINE Administration Sodium Chloride 1,000 mls @ 100 mls/hr 08/01/19 15:00 08/03/19 04:34 Saline 0.9% IV Not Given .Q10H LORRAINE Ceftriaxone Sodium 2 gm/ 50 mls @ 100 mls/hr 08/03/19 09:00 08/03/19 09:37 Sodium Chloride IVPB 100 mls/hr Q24HR LORRAINE Administration Methylprednisolone Sodium Succinate 40 mg 08/02/19 09:00 08/03/19 09:39 Solu-Medrol IV 40 mg Q12HR LORRAINE Administration Metoprolol Tartrate 25 mg 08/03/19 21:00 Lopressor PO BID LORRAINE Objective - Vital Signs Vital signs: Vital Signs Temp 98.3 F 08/03/19 12:00 Pulse 78 08/03/19 12:00 Resp 16 08/03/19 12:00 BP 131/58 08/03/19 12:00 Pulse Ox 100 08/03/19 12:00 Intake & Output 08/02/19 08/03/19 08/03/19 18:59 06:59 18:59 Intake Total 528.73 743.563 100 Output Total 900 400 400 Balance -371.27 343.563 -300 Weight 55.5 kg Intake: Intake, IV Titration 67.73 743.563 Amount Heparin Sod,Pork in 0.45% 67.73 143.563 NaCl 25,000 unit In 0.45 % NaCl 1 250ml.bag @ 12 UNITS/KG/HR 5.987 mls/hr IV .Q24H LORRAINE Rx#: [id number] Sodium Chloride 0.9% 1, 400 000 ml @ 100 mls/hr IV . Q10H LORRAINE Rx#:[id number] cefTRIAXone 2 gm In 200 Sodium Chloride 0.9% 50 ml @ 100 mls/hr IVPB Q24HR LORRAINE Rx#:[id number] Oral 461 100 Output: Urine 900 400 400 Other: Voiding Method Toilet Toilet Toilet # Voids 1 1 1 # Bowel Movements 0 0 0 - Exam GENERAL: The patient is alert and oriented x3, not in any acute distress. Well developed, well nourished. HEENT: Pupils are round and equally reacting to light. EOMI. No scleral icterus. No conjunctival pallor. Normocephalic, atraumatic. No pharyngeal erythema. No thyromegaly. CARDIOVASCULAR: S1 and S2 present. No murmurs, rubs, or gallops. PULMONARY: Chest is clear to auscultation, no wheezing or crackles. ABDOMEN: Soft, nontender, nondistended, normoactive bowel sounds. No palpable organomegaly. MUSCULOSKELETAL: No joint swelling or deformity. EXTREMITIES: No cyanosis, clubbing, or pedal edema. NEUROLOGICAL: Gross neurological examination did not reveal any focal deficits. SKIN: No rashes. no petechiae. - Labs CBC & Chem 7: 08/03/19 06:12 08/03/19 06:12 Labs: Abnormal Lab Results - Last 24 Hours (Table) 08/02/19 08/03/19 08/03/19 Range/Units 19:55 02:57 06:12 WBC 16.7 H (3.8-10.6) k/uL RBC 3.13 L (3.80-5.40) m/uL Hgb 9.2 L (11.4-16.0) gm/dL Hct 29.9 L (34.0-46.0) % MCHC 30.7 L (31.0-37.0) g/dL Neutrophils # 15.3 H (1.3-7.7) k/uL Lymphocytes # 0.5 L (1.0-4.8) k/uL APTT 44.1 H 45.8 H (22.0-30.0) sec Chloride (98-107) mmol/L BUN (7-17) mg/dL Glucose (74-99) mg/dL 08/03/19 08/03/19 Range/Units 06:12 10:57 WBC (3.8-10.6) k/uL RBC (3.80-5.40) m/uL Hgb (11.4-16.0) gm/dL Hct (34.0-46.0) % MCHC (31.0-37.0) g/dL Neutrophils # (1.3-7.7) k/uL Lymphocytes # (1.0-4.8) k/uL APTT 53.6 H (22.0-30.0) sec Chloride 112 H (98-107) mmol/L BUN 21 H (7-17) mg/dL Glucose 143 H (74-99) mg/dL Microbiology - Last 24 Hours (Table) 08/01/19 13:55 Blood Culture Gram Stain - Preliminary Blood Blood Culture - Preliminary Escherichia coli 08/01/19 11:00 Urine Culture - Preliminary Urine,Voided Gram Neg Bacilli Assessment and Plan Assessment: Acute Pyelonephritis Positive blood culture with E. coli Systemic inflammatory response with fever, leukocytosis, tachycardia Sepsis and septicemia secondary to both Mild right hydronephrosis Elevated troponin, with apical wall hypokinesia, suspicious for acute coronary syndrome Mild Acute COPD exacerbation Elevated lactic acid, came back to normal Abnormal EKG with fusion complexes and elevated QTC at 544 Bradycardia status post pacemaker Hyperlipidemia History of CVA/TIA Plan: This is a pleasant 84 years old female who presents with possible pyelonephritis and COPD exacerbation. Continue with antibiotics, ceftriaxone and doxycycline, continue with IV hydration. Switch Eliquis 2 heparin drip and cardiology following the patient for pacemaker interrogation and possible cardiac workup when infection is controlled. Follow-up urology recommendation, consult ID. Follow-up culture Labs and medication were reviewed.. Continue same treatment. Continue with symptomatic treatment. Resume home medication. Monitor lytes and vitals. DVT and GI prophylaxis. Further recommendations of the clinical course of the patient DVT prophylaxis: Heparin GI Prophylaxis: Pepcid PT/OT: Pending Prognosis is guarded
--- NOTE | 2019-08-03 16:36 | PN ---
PROGRESS NOTE DATE OF SERVICE: 08/03/2019. REASON FOR FOLLOWUP: E coli bacteremia, source likely urinary. INTERVAL HISTORY: The patient is currently afebrile. He has been breathing comfortably. The patient's left lower chest pain has improved. He did have some cough, not bringing up any sputum. No nausea or vomiting. No abdominal pain. No diarrhea. PHYSICAL EXAMINATION: Blood pressure 131/58 with a pulse of 83, temperature 98.3. She is 100% on 2 L nasal cannula. General description is an elderly female up in the bed in no distress. Respiratory system: Unlabored breathing. Decreased breath sounds at the bases. No wheeze. Heart S1, S2. Regular rate and rhythm. ABDOMEN: Soft, no tenderness. EXTREMITIES: No edema of the feet. LABS: Hemoglobin 9.2, white count of 16.7, BUN of 21, creatinine 0.59. Urine with gram- negative, blood culture with E coli. DIAGNOSTIC IMPRESSION AND PLAN: Patient with E coli infection, source likely urinary while waiting for the sensitivity to finalize, the patient is currently covered with Rocephin 2 g to continue and monitor clinical course closely. Family at the bedside. Questions answered. MMODL / IJN: [id number] /
[2019-08-03] MEDS: APIXABAN 2.5 MG TABLET PO SCH ×2 (16:53→20:40)
[2019-08-03] MEDS: METOPROLOL TARTRATE 25 MG TAB PO SCH (20:40)
[2019-08-04 07:40] LABS: African American GFR (CKD) >90 (>60 ml/min/1.73 sqM); Anion Gap 4 mmol/L; Blood Urea Nitrogen 21 mg/dL (7-17); Calcium 9.1 mg/dL (8.4-10.2); Carbon Dioxide 30 mmol/L (22-30); Chloride 108 mmol/L (98-107); Glucose 113 mg/dL (74-99); Non-African American GFR(CKD) 83 (>60 ml/min/1.73 sqM); Potassium 4.7 mmol/L (3.5-5.1); Sodium 142 mmol/L (137-145)
[2019-08-04 08:13] LABS: Basophils % (A) 0 %; Eosinophils % (A) 0 %; HCT 30.1 % (34.0-46.0); HGB 9.5 gm/dL (11.4-16.0); Hypochromasia Moderate; Lymphocytes # (A) 0.5 k/uL (1.0-4.8); Lymphocytes % (A) 4 %; MCH 29.9 pg (25.0-35.0); MCHC 31.4 g/dL (31.0-37.0); MCV 95.2 fL (80.0-100.0); Mean Platelet Volume 7.9; Monocytes # (A) 0.6 k/uL (0-1.0); Monocytes % (A) 4 %; Neutrophils # (A) 12.7 k/uL (1.3-7.7); Neutrophils % (A) 91 %; Platelet Count 434 k/uL (150-450); RBC 3.17 m/uL (3.80-5.40); RDW 13.6 % (11.5-15.5); WBC 13.9 k/uL (3.8-10.6)
[2019-08-04] MEDS: DOXYCYCLINE 100 MG CAP PO SCH ×2 (08:47→20:04)
[2019-08-04] MEDS: APIXABAN 2.5 MG TABLET PO SCH ×2 (08:48→20:04)
[2019-08-04] MEDS: ASPIRIN 81 MG PO SCH (08:48)
[2019-08-04] MEDS: methylPREDNISolone SOD SUCCI 40 MG/ML 1 ML VIAL IV SCH ×2 (08:48→20:04)
[2019-08-04] MEDS: ATORVASTATIN 20 MG TAB PO SCH (08:48)
[2019-08-04] MEDS: METOPROLOL TARTRATE 25 MG TAB PO SCH ×2 (08:48→20:04)
[2019-08-04] MEDS: FAMOTIDINE 20 MG TAB PO SCH (08:48)
--- NOTE | 2019-08-04 10:32 | P.PN ---
Subjective This is a pleasant 84 years old female with past medical history of CVA/TIA, hyperlipidemia, bradycardia with pacemaker since 06/2019, UTI. Patient presents with dyspnea of one-day duration associated with dry cough but no chest pain. Patient was noticed to have fever at home however she denies diarrhea, she did not notice urinary symptoms however her urine was cloudy 1 is collected and sample is suspicious for urinary tract infection. She she denies back tenderness and on exam she has no costovertebral angle tenderness. She denies weakness or numbness. No headache. No rash. She's EX smoker, quit months ago. No alcohol or illicit drugs. She follows with Dr. Meier refer her to urologist, however she does not know why she was referred to urologist. She sees Dr. Montenegro for bradycardia and pacemaker inserted the last June. She takes Eliquis 2.5 mg twice daily but she does not know why. On the presentation patient was febrile at 100.9, with left showing leukocytosis of 20 K, rest of CBC, BMP and liver enzymes were not elevated. Urine analysis is suspicious for infection. Lactic acid is elevated at 7.0. EKG: Shows sinus tachycardia with PVCs and fusion complex, heart rate of 126, QTC is 544. Chest x-ray: No acute process. COPD On admission patient was started on aspirin 325 mg and Rocephin 1 g daily also she received 1 L of normal saline. 08/02/2019 Patient is awake and alert. No chest pain. Her dyspnea is significantly better. No coughing. No suprapubic tenderness or back pain or flank pain. Vitals are stable with no more fever. She is saturating well at 97% on 3 L oxygen. Obesity came down to 19.7. She was started on heparin drip and her PTT is therapeutic. Lactic acid came back to normal at 1.1. Renal ultrasound showing mild hydronephrosis and a consult has been placed for urologist and infectious disease. Technical Cable Jointer evaluated the patient for possible acute coronary syndrome although it felt less likely by orderly, patient was started on heparin drip. Pacemaker will be interrogated. Aspirin is decreased to 81 mg daily. And they think with cardiology workup once infection is cleared. 08/03/2019 Patient is awake. She denies chest pain. She still little dyspneic and ta chypneic but states she is improving. Vitals are stable. Leukocytosis improvement to 16.7 K. Lactic acid to normal and creatinine within normal limits. Troponin are elevated with trending of 0.02, 0.08, and 0.05. Echocardiogram from yesterday was showing ejection fraction of 50-55%, and apical anterior wall motion is hypokinetic with apical septum LV wall motion is hypokinetic. CT of the chest showed possible lung mass. Pulmonary consult was placed. Also she has positive blood culture for E. coli and infectious disease tomorrow consulted. Patient was updated with her medical problems however she was upset, please see addendum which is mistakenly placed on yesterday note 08/04/2019 Patient awake with less dyspnea. She denies chest pain. She has some loose bowel movement and we will check for C. diff.. WBC is going down to 13.9, BMP is unremarkable. Urine and blood cultures are growing E. coli which is sensitive to Rocephin. Repeat blood culture showing no growth so far. She remains on Rocephin, doxycycline, Solu-Medrol 40 mg twice daily, which we can be lowered to 20 mg twice daily and normal saline at 50 mL/h the rate from 100 mL per hour. Technical Cable Jointer switch heparin drip to her home dose of Eliquis at 2.5 mg. She is also on aspirin and metoprolol 25 mg. I discussed the patient's condition in the presents of her daughter upon patient request. Patient was updated about problems and recommendation including the need for follow-up with urologist, for cystoscopy, with orderly for stress test, and shielded. It CAT scan of the chest in 4 weeks for her lung mass, patient is aware of the risk of cancer. Shoe Folder recommended thoracic surgeon however the patient and daughter at bedside declined in the presence of bedside nurse. Objective - Vital Signs Vital signs: Vital Signs Temp 98.2 F 08/04/19 07:37 Pulse 79 08/04/19 07:37 Resp 16 08/04/19 08:00 BP 139/64 08/04/19 07:37 Pulse Ox 94 L 08/04/19 07:37 Intake & Output 08/03/19 08/04/19 08/04/19 18:59 06:59 18:59 Intake Total 1558 480 Output Total 900 150 Balance 658 -150 480 Weight 56.6 kg Intake: Intake, IV Titration 1100 Amount Sodium Chloride 0.9% 1, 1000 000 ml @ 100 mls/hr IV . Q10H L[facility]RAINE Rx#:[id number] cefTRIAXone 2 gm In 100 Sodium Chloride 0.9% 50 ml @ 100 mls/hr IVPB Q24HR LORRAINE Rx#:[id number] Oral 458 480 Output: Urine 900 150 Other: Voiding Method Toilet Toilet # Voids 1 1 # Bowel Movements 0 1 - Exam GENERAL: The patient is alert and oriented x3, not in any acute distress. Well developed, well nourished. HEENT: Pupils are round and equally reacting to light. EOMI. No scleral icterus. No conjunctival pallor. Normocephalic, atraumatic. No pharyngeal erythema. No thyromegaly. CARDIOVASCULAR: S1 and S2 present. No murmurs, rubs, or gallops. PULMONARY: Chest is clear to auscultation, no wheezing or crackles. ABDOMEN: Soft, nontender, nondistended, normoactive bowel sounds. No palpable organomegaly. MUSCULOSKELETAL: No joint swelling or deformity. EXTREMITIES: No cyanosis, clubbing, or pedal edema. NEUROLOGICAL: Gross neurological examination did not reveal any focal deficits. SKIN: No rashes. no petechiae. - Labs CBC & Chem 7: 08/04/19 06:15 08/04/19 06:15 Labs: Abnormal Lab Results - Last 24 Hours (Table) 08/03/19 08/04/19 08/04/19 Range/Units 10:57 06:15 06:15 WBC 13.9 H (3.8-10.6) k/uL RBC 3.17 L (3.80-5.40) m/uL Hgb 9.5 L (11.4-16.0) gm/dL Hct 30.1 L (34.0-46.0) % Neutrophils # 12.7 H (1.3-7.7) k/uL Lymphocytes # 0.5 L (1.0-4.8) k/uL APTT 53.6 H (22.0-30.0) sec Chloride 108 H (98-107) mmol/L BUN 21 H (7-17) mg/dL Glucose 113 H (74-99) mg/dL Microbiology - Last 24 Hours (Table) 08/03/19 06:12 Blood Culture - Preliminary Blood No Growth after 24 hours 08/01/19 13:55 Blood Culture Gram Stain - Final Blood Blood Culture - Final Escherichia coli 08/01/19 11:00 Urine Culture - Final Urine,Voided Escherichia coli Assessment and Plan Assessment: Acute Pyelonephritis Positive blood culture with E. coli Systemic inflammatory response with fever, leukocytosis, tachycardia Sepsis and septicemia secondary to both Mild right hydronephrosis Elevated troponin, with apical wall hypokinesia, suspicious for acute coronary syndrome Mild Acute COPD exacerbation Elevated lactic acid, came back to normal Lung mass Loose stool, rule out C. difficile Possible small folliculitis of the left ear, used topical antibiotics Abnormal EKG with fusion complexes and elevated QTC at 544 Bradycardia status post pacemaker Hyperlipidemia History of CVA/TIA Plan: This is a pleasant 84 years old female who presents with possible pyelonephritis and COPD exacerbation, and other problems as above. Continue with antibiotics, ceftriaxone and doxycycline, continue with IV hydration. Put the patient back on Eliquis upper and orderly recommendation, and possible cardiac workup when infection is controlled. Follow-up urology recommendation, follow-up recommendation by ID. Follow-up culture. Patient and daughter at bedside declined to see thoracic surgeon for her lung mass recommended by Dr. Herrera. Patient and daughter at bedside were informed by the need for follow-up with urologist for outpatient cystoscopy, orderly for outpatient stress test and signaling project engineer for repeating CAT scan of the chest in 4 weeks and they agree. Discharge recommendations are in the chart, appointments could not be made today as it is Monday/. Check for C. diff Labs and medication were reviewed.. Continue same treatment. Continue with symptomatic treatment. Resume home medication. Monitor lytes and vitals. DVT and GI prophylaxis. Further recommendations of the clinical course of the patient DVT prophylaxis: Eliquis GI Prophylaxis: Pepcid Prognosis is guarded, Given multiple problems and complexity Discussed the problems with the patient and daughter presents upon patient request and all questions answered
--- NOTE | 2019-08-04 11:14 | P.PN ---
Subjective Progress Note Date: 08/04/19 Principal diagnosis: Weakness, fatigue This is a very pleasant 84-year-old female patient who follows with Dr. 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 She had recently developed increased weakness and was in bed for nearly 3 days this week according to her daughter. She states she was somewhat dusky and vaughan at times as well. The patient initially refused to see a physician or come to the hospital but on 08/01/2019 she was brought in by her family. Chest x-ray revealed COPD but no acute pulmonary process. There is a stable pleural parenchymal opacity and left lung base representing most likely scarring. The patient does have a 60+ year smoking history and quit February 2019. She had not been seen by a home hospice rn in the past. She has a albuterol inhaler that she infrequently uses. Initial white count 22.0. Lactic acid 2.5. Troponin 0.050. Urine culture positive for gram-negative bacilli. Blood cultures are now positive for E. coli. He was initiated on ceftriaxone and doxycycline. She was started on IV Solu-Medrol and bronchodilators. CT angiogram was performed yesterday that revealed no evidence of pulmonary emboli. There was however noted soft tissue density in the left infrahilar region anter ior to the descending thoracic aorta measuring 3.4 x 2.1 cm. This could reflect conglomerate adenopathy however mass is not excluded. We were consulted today for the same. She is seen on the selective care unit. Awake and alert in no acute distress. Sitting up at the bedside. Denies any worsening shortness of breath cough or congestion. Never hemoptysis. She is maintaining O2 saturation in the mid 90s on 3 L/m per nasal cannula. She's been afebrile. Hemodynamically stable. Current white count 16.7. Hemoglobin 9.2. Creatinine 0.59. On 08/04/2019 patient seen in follow-up on selective care unit. Patient is awake and alert, in no acute distress, lung sounds reveal a few basilar rales, no significant rhonchi or wheezing, no specific complaints today, no chest pain, no cough or congestion, on 2 L her pulse ox was 94-95%, afebrile, hemodynamically stable, patient is on Rocephin and doxycycline, urine cultures were positive for E. coli, blood culture showed E. coli, follow blood culture so far is negative. Today's labs have been reviewed, white blood cell is trending down, down to 13.9 on today's labs, hemoglobin is 9.5, sodium is 142, potassium is 4.7, chloride is 108, CO2 is 30, BUN is 21 creatinine 0.65. Objective - Vital Signs Vital signs: Vital Signs Temp 98.2 F 08/04/19 07:37 Pulse 79 08/04/19 07:37 Resp 16 08/04/19 08:00 BP 139/64 08/04/19 07:37 Pulse Ox 94 L 08/04/19 07:37 Intake & Output 08/03/19 08/04/19 08/04/19 18:59 06:59 18:59 Intake Total 1558 480 Output Total 900 150 Balance 658 -150 480 Weight 56.6 kg Intake: Intake, IV Titration 1100 Amount Sodium Chloride 0.9% 1, 1000 000 ml @ 100 mls/hr IV . Q10H [facility] Rx#:[id number] cefTRIAXone 2 gm In 100 Sodium Chloride 0.9% 50 ml @ 100 mls/hr IVPB Q24HR [facility] Rx#:[id number] Oral 458 480 Output: Urine 900 150 Other: Voiding Method Toilet Toilet # Voids 1 1 # Bowel Movements 0 1 - Exam GENERAL EXAM: Alert, very pleasant, 84-year-old white female, on 2 L of oxygen comfortable in no apparent distress. HEAD: Normocephalic/atraumatic. EYES: Normal reaction of pupils, equal size. Conjunctiva pink, sclera white. NOSE: Clear with pink turbinates. THROAT: No erythema or exudates. NECK: No masses, no JVD, no thyroid enlargement, no adenopathy. CHEST: No chest wall deformity. Symmetrical expansion. LUNGS: Equal air entry with minimal basilar crackles, wheeze, rhonchi or dullness. CVS: Regular rate and rhythm, normal S1 and S2, no gallops, no murmurs, no rubs ABDOMEN: Soft, nontender. No hepatosplenomegaly, normal bowel sounds, no guarding or rigidity. EXTREMITIES: No clubbing, no edema, no cyanosis, 2+ pulses and upper and lower extremities. MUSCULOSKELETAL: Muscle strength and tone normal. SPINE: No scoliosis or deformity SKIN: No rashes CENTRAL NERVOUS SYSTEM: Alert and oriented -3. No focal deficits, tone is normal in all 4 extremities. PSYCHIATRIC: Alert and oriented -3. Appropriate affect. Intact judgment and insight. - Labs CBC & Chem 7: 08/04/19 06:15 08/04/19 06:15 Labs: Abnormal Lab Results - Last 24 Hours (Table) 08/03/19 08/04/19 08/04/19 Range/Units 10:57 06:15 06:15 WBC 13.9 H (3.8-10.6) k/uL RBC 3.17 L (3.80-5.40) m/uL Hgb 9.5 L (11.4-16.0) gm/dL Hct 30.1 L (34.0-46.0) % Neutrophils # 12.7 H (1.3-7.7) k/uL Lymphocytes # 0.5 L (1.0-4.8) k/uL APTT 53.6 H (22.0-30.0) sec Chloride 108 H (98-107) mmol/L BUN 21 H (7-17) mg/dL Glucose 113 H (74-99) mg/dL Microbiology - Last 24 Hours (Table) 08/03/19 06:12 Blood Culture - Preliminary Blood No Growth after 24 hours 08/01/19 13:55 Blood Culture Gram Stain - Final Blood Blood Culture - Final Escherichia coli 08/01/19 11:00 Urine Culture - Final Urine,Voided Escherichia coli Assessment and Plan Plan: Assessment: 1 Profound weakness, fever and fatigue secondary to bacteremia with E. coli 2 Urinary tract infection secondary to gram-negative bacilli 3 Left perihilar soft tissue measuring 3.4 x 2.1 anterior to the descending thoracic aorta. Suspicious for conglomerate adenopathy versus mass 4 50+ pack per day smoking history, quit February 2019 5 elevated troponins 6 Moderate to severe mitral regurgitation 7 Moderate to severe pulmonary hypertension 8 Severe bradycardia with Mobitz type II AV block, status post permanent pacemaker implantation May 2019 9 History of TIA 10 Hyperlipidemia Plan: Continue antibiotic coverage per ID service recommendations, clinically patient appears to be stable, no fever or chills, hemodynamically stable, no shortness of breath. Patient will need outpatient follow-up in pulmonary clinic, and outpatient follow-up CAT scan of the chest in regards to the left perihilar soft tissue mass, possibly adenopathy, and at some point patient will need thoracic surgery evaluation for possibility of biopsy of the mentioned lesion. I performed a history & physical examination of the patient and discussed their management with my nurse practitioner, Judith Mims. I reviewed the nurse practitioner's note and agree with the documented findings and plan of care. Lung sounds are positive for minimal crackles. The findings and the impression was discussed with the patient. I attest to the documentation by the nurse practitioner. Time with Patient: Less than 30
[2019-08-04] MEDS: BACITRACIN OINT 1 EACH PACKET TOPICAL SCH ×3 (12:35→20:04)
--- NOTE | 2019-08-04 15:42 | PN ---
PROGRESS NOTE Mrs. Sanodval is comfortable, resting, maintaining sinus rhythm. No chest pain or shortness of breath. Pyelonephritis is being treated with intravenous antibiotics. Vitals stable. No JVD. S1-S2 heard normally. Short systolic murmur noted. Lungs reveal decent air entry. Abdomen and lower extremity exam is unchanged. MMODL / IJN: [id number] /
[2019-08-04] MEDS: SODIUM CHLORIDE 0.9% 1,000 ML IV SCH (16:27)
--- NOTE | 2019-08-04 20:44 | PN ---
PROGRESS NOTE DATE OF SERVICE: 08/04/2019 REASON FOR FOLLOWUP: E coli bacteremia secondary to urinary source. INTERVAL HISTORY: The patient is currently afebrile. The patient is breathing comfortably. The patient denies having any chest pain, shortness of breath or cough. No nausea, vomiting, abdominal pain. No diarrhea. PHYSICAL EXAMINATION: Blood pressure 134/59 with a pulse of 86, temperature 98.5. He is 96% on room air. General description is an elderly female lying in bed in no distress. Respiratory system: Unlabored breathing. Clear to auscultation anteriorly. Heart S1, S2. Regular rate and rhythm. ABDOMEN: Soft, no tenderness. Extremities: No edema of the feet. LABS: Hemoglobin 9.5, white count 13.9, BUN of 21, creatinine 0.65. DIAGNOSTIC IMPRESSION AND PLAN: Patient with E coli bacteremia, source likely urinary in this patient who has shown overall clinical improvement. The patient is currently on Rocephin. Antibiotic on discharge will be Cipro 500 mg twice a day for 12 days. The prescription has been sent to the pharmacy and close outpatient followup. MMODL / IJN: [id number] / SHARON
[2019-08-05 06:33] LABS: Calcium 9.2 mg/dL (8.4-10.2); Potassium 4.5 mmol/L (3.5-5.1)
[2019-08-05] MEDS: methylPREDNISolone SOD SUCCI 40 MG/ML 1 ML VIAL IV SCH ×2 (08:38→19:47)
[2019-08-05] MEDS: APIXABAN 2.5 MG TABLET PO SCH ×2 (08:39→19:47)
[2019-08-05] MEDS: DOXYCYCLINE 100 MG CAP PO SCH ×2 (08:39→19:47)
[2019-08-05] MEDS: ASPIRIN 81 MG PO SCH (08:39)
[2019-08-05] MEDS: FAMOTIDINE 20 MG TAB PO SCH (08:39)
[2019-08-05] MEDS: BACITRACIN OINT 1 EACH PACKET TOPICAL SCH ×4 (08:39→19:47)
[2019-08-05] MEDS: ATORVASTATIN 20 MG TAB PO SCH (08:39)
[2019-08-05] MEDS: METOPROLOL TARTRATE 25 MG TAB PO SCH ×2 (08:42→19:47)
--- NOTE | 2019-08-05 11:26 | P.PN ---
Subjective This is a pleasant 84 years old female with past medical history of CVA/TIA, hyperlipidemia, bradycardia with pacemaker since 06/2019, UTI. Patient presents with dyspnea of one-day duration associated with dry cough but no chest pain. Patient was noticed to have fever at home however she denies diarrhea, she did not notice urinary symptoms however her urine was cloudy 1 is collected and sample is suspicious for urinary tract infection. She she denies back tenderness and on exam she has no costovertebral angle tenderness. She denies weakness or numbness. No headache. No rash. She's EX smoker, quit months ago. No alcohol or illicit drugs. She follows with Dr. Meier refer her to urologist, however she does not know why she was referred to urologist. She sees Dr. Montenegro for bradycardia and pacemaker inserted the last June. She takes Eliquis 2.5 mg twice daily but she does not know why. On the presentation patient was febrile at 100.9, with left showing leukocytosis of 20 K, rest of CBC, BMP and liver enzymes were not elevated. Urine analysis is suspicious for infection. Lactic acid is elevated at 7.0. EKG: Shows sinus tachycardia with PVCs and fusion complex, heart rate of 126, QTC is 544. Chest x-ray: No acute process. COPD On admission patient was started on aspirin 325 mg and Rocephin 1 g daily also she received 1 L of normal saline. 08/02/2019 Patient is awake and alert. No chest pain. Her dyspnea is significantly better. No coughing. No suprapubic tenderness or back pain or flank pain. Vitals are stable with no more fever. She is saturating well at 97% on 3 L oxygen. Obesity came down to 19.7. She was started on heparin drip and her PTT is therapeutic. Lactic acid came back to normal at 1.1. Renal ultrasound showing mild hydronephrosis and a consult has been placed for urologist and infectious disease. Account Resolution Specialist evaluated the patient for possible acute coronary syndrome although it felt less likely by commodities trader, patient was started on heparin drip. Pacemaker will be interrogated. Aspirin is decreased to 81 mg daily. And they think with cardiology workup once infection is cleared. 08/03/2019 Patient is awake. She denies chest pain. She still little dyspneic and ta chypneic but states she is improving. Vitals are stable. Leukocytosis improvement to 16.7 K. Lactic acid to normal and creatinine within normal limits. Troponin are elevated with trending of 0.02, 0.08, and 0.05. Echocardiogram from yesterday was showing ejection fraction of 50-55%, and apical anterior wall motion is hypokinetic with apical septum LV wall motion is hypokinetic. CT of the chest showed possible lung mass. Pulmonary consult was placed. Also she has positive blood culture for E. coli and infectious disease tomorrow consulted. Patient was updated with her medical problems however she was upset, please see addendum which is mistakenly placed on yesterday note 08/04/2019 Patient awake with less dyspnea. She denies chest pain. She has some loose bowel movement and we will check for C. diff.. WBC is going down to 13.9, BMP is unremarkable. Urine and blood cultures are growing E. coli which is sensitive to Rocephin. Repeat blood culture showing no growth so far. She remains on Rocephin, doxycycline, Solu-Medrol 40 mg twice daily, which we can be lowered to 20 mg twice daily and normal saline at 50 mL/h the rate from 100 mL per hour. Account Resolution Specialist switch heparin drip to her home dose of Eliquis at 2.5 mg. She is also on aspirin and metoprolol 25 mg. I discussed the patient's condition in the presents of her daughter upon patient request. Patient was updated about problems and recommendation including the need for follow-up with urologist, for cystoscopy, with commodities trader for stress test, and shielded. It CAT scan of the chest in 4 weeks for her lung mass, patient is aware of the risk of cancer. News Broadcaster recommended thoracic surgeon however the patient and daughter at bedside declined in the presence of bedside nurse. 08/05/2019 Patient still mildly dyspneic, she denies chest pain, she says that her diarrhea is improving and is becoming more formed, she was called no chest pain, no abdominal pain, no nausea vomiting, commodities trader recommended outpatient stress test, urologist recommended outpatient cystoscopy, while pathologist recommended CT of the chest in 4 weeks to check for lung mass, patient and daughter at bedside are aware of these recommendations and appointments improvement and they understand risk including but not limited to risk of cancer associated with it. The intend follow-up. Patient remains on ceftriaxone and doxycycline. Also she is on IV Solu-Medrol, patient refused normal saline which was stopped. Car diologist but the patient back on her Eliquis 2.5 mg twice daily, continue on aspirin and metoprolol 25 mg. Blood pressure 149/76, heart rate 76, she saturating at 92% on room air. Labs reviewed. Her leukocytosis is 13.9 K, creatinine 0.7. Sugar controlled. We going to ask for physical therapy evaluation today Objective - Vital Signs Vital signs: Vital Signs Temp 97.8 F 08/05/19 07:45 Pulse 76 08/05/19 07:45 Resp 16 08/05/19 07:45 BP 149/76 08/05/19 07:45 Pulse Ox 92 L 08/05/19 07:45 Intake & Output 08/04/19 08/05/19 08/05/19 18:59 06:59 18:59 Intake Total 1654 240 Output Total 900 Balance 754 240 Weight 56 kg Intake: Intake, IV Titration 250 Amount Sodium Chloride 0.9% 1, 150 000 ml @ 50 mls/hr IV . Q20H [facility] Rx#:[id number] cefTRIAXone 2 gm In 100 Sodium Chloride 0.9% 50 ml @ 100 mls/hr IVPB Q24HR [facility] Rx#:[id number] Oral 1404 240 Output: Urine 900 Other: Voiding Method Toilet # Voids 1 # Bowel Movements 2 - Exam GENERAL: The patient is alert and oriented x3, not in any acute distress. Well developed, well nourished. HEENT: Pupils are round and equally reacting to light. EOMI. No scleral icterus. No conjunctival pallor. Normocephalic, atraumatic. No pharyngeal erythema. No thyromegaly. CARDIOVASCULAR: S1 and S2 present. No murmurs, rubs, or gallops. PULMONARY: Chest is clear to auscultation, no wheezing or crackles. ABDOMEN: Soft, nontender, nondistended, normoactive bowel sounds. No palpable organomegaly. MUSCULOSKELETAL: No joint swelling or deformity. EXTREMITIES: No cyanosis, clubbing, or pedal edema. NEUROLOGICAL: Gross neurological examination did not reveal any focal deficits. SKIN: No rashes. no petechiae. - Labs CBC & Chem 7: 08/04/19 06:15 08/05/19 05:51 Labs: Abnormal Lab Results - Last 24 Hours (Table) 08/05/19 Range/Units 05:51 Carbon Dioxide 33 H (22-30) mmol/L BUN 28 H (7-17) mg/dL Glucose 126 H (74-99) mg/dL Microbiology - Last 24 Hours (Table) 08/03/19 06:12 Blood Culture - Preliminary Blood No Growth after 48 hours Assessment and Plan Assessment: Acute Pyelonephritis Positive blood culture with E. coli Systemic inflammatory response with fever, leukocytosis, tachycardia Sepsis and septicemia secondary to both generalized weakness Mild right hydronephrosis Elevated troponin, with apical wall hypokinesia, suspicious for acute coronary syndrome Mild Acute COPD exacerbation Elevated lactic acid, came back to normal Lung mass Loose stool, rule out C. difficile Possible small folliculitis of the left ear, used topical antibiotics Abnormal EKG with fusion complexes and elevated QTC at 544 Bradycardia status post pacemaker Hyperlipidemia History of CVA/TIA Plan: This is a pleasant 84 years old female who presents with possible pyelonephritis and COPD exacerbation, and other problems as above. Continue with antibiotics, ceftriaxone and doxycycline, continue with IV hydration. Put the patient back on Eliquis upper and commodities trader recommendation, and possible cardiac workup when infection is controlled. Follow-up urology recommendation, follow-up recommendation by ID. Follow-up culture. Patient and daughter at bedside declined to see thoracic surgeon for her lung mass recommended by Dr. Herrera. They understand the risk associated with the mass could be cancer. Patient and daughter at bedside were informed by the need for follow-up with urologist for outpatient cystoscopy, commodities trader for outpatient stress test and corset maker for repeating CAT scan of the chest in 4 weeks and they agree. We'll ask for physical therapy evaluation. Patient still needs monitoring, including her breathing, bowel movement, or weakness. Her blood culture showed no growth in 48 hours however is not finalized yet. Check TSH Labs and medication were reviewed.. Continue same treatment. Continue with symptomatic treatment. Resume home medication. Monitor lytes and vitals. DVT and GI prophylaxis. Further recommendations of the clinical course of the stacey ent DVT prophylaxis: Eliquis GI Prophylaxis: Pepcid PT/OT: Pending Prognosis is guarded, Given multiple problems and complexity Discussed the problems with the patient and daughter presents upon patient request and all questions answered
--- NOTE | 2019-08-05 15:18 | P.PN ---
Subjective Progress Note Date: 08/05/19 This is an 84-year-old female who follows with Dr. Doan as her notch grinder. Patient has a history of nicotine dependence, she states that she quit smoking in February of this year, history of a TIA, left bundle-branch block, patient also had a loop recorder with subsequent implantation of a permanent pacemaker in June for severe bradycardia, Mobitz type II AV block. According to the patient, since then she states that she has not felt well, has intermittent chest discomfort. An overall feels felt extremely tired. He presents to the hospital on this occasion with an episode of left-sided chest pain which she describes as a poking-type pain that felt like a pin poking her. She also states that she felt chills at home and may have had a mild fever. Her chest x-ray on presentation here showed stable borderline heart size, stable pleural parenchymal obesity in the left base, COPD. Her EKG on presentation here showed a sinus tachycardia with left bundle branch block pattern and frequent PVCs. Renal ultrasound showed mild right-sided hydronephrosis. No renal mass seen. No ureteral jet skiing on the right side suggestive of obstruction, numerous gallstones noted. Blood pressure 108/60 with a heart rate in the 70s, 97% on 3 L of oxygen. White blood cell count on presentation here was 22, 19.7 this morning, hemoglobin on arrival 12.2, 10.0 this morning, platelet count 351. Sodium 138, potassium 3.8, BUN 26, creatinine 0.7. Plasma lactic acid 7 on admission, 2.5 this morning. Troponins 0.020, 0.086, 0.050. Positive UTI. Blood pressure on arrival here 110/60 with a heart rate in the 70s, patient did have a temperature of 100.9. Afebrile this morning. At the time of my examination this morning, patient is currently chest pain-free, no complaints. 08/05/2019 Patient was seen and examined this morning, overall doing well. No complaints. Anticipating discharge today.blood pressurure 148/76 with a heart rate in the 70s, 92% on room air. We will add a small dose of Norvasc to her medication regime for optimal blood pressure control. Objective - Vital Signs Vital signs: Vital Signs Temp 98.7 F 08/05/19 12:00 Pulse 84 08/05/19 12:00 Resp 16 08/05/19 12:00 BP 157/102 08/05/19 12:00 Pulse Ox 94 L 08/05/19 12:00 Intake & Output 08/04/19 08/05/19 08/05/19 18:59 06:59 18:59 Intake Total 1654 240 Output Total 900 200 Balance 754 40 Weight 56 kg Intake: Intake, IV Titration 250 Amount Sodium Chloride 0.9% 1, 150 000 ml @ 50 mls/hr IV . Q20H [facility] Rx#:[id number] cefTRIAXone 2 gm In 100 Sodium Chloride 0.9% 50 ml @ 100 mls/hr IVPB Q24HR [facility] Rx#:[id number] Oral 1404 240 Output: Urine 900 200 Other: Voiding Method Toilet Toilet # Voids 1 1 # Bowel Movements 2 - Exam PHYSICAL EXAMINATION: GENERAL: 84-year-old female in no acute distress at the time of my examination HEENT: Head is atraumatic, normocephalic. Pupils equal, round. Sclera anicteric. Conjunctiva are clear. Mucous membranes of the mouth are moist. Neck is supple. There is no elevated jugular venous pressure. No carotid bruit is heard. HEART EXAMINATION: Heart S1, S2 normal. No murmur or gallop heard. CHEST EXAMINATION: Lungs are clear to auscultation and precussion. No chest wall tenderness is noted on palpation or with deep breathing. ABDOMEN: Soft, nontender. Bowel sounds are heard. No organomegaly noted. EXTREMITIES: 2+ peripheral pulses with no evidence of peripheral edema and no calf tenderness noted. NEUROLOGIC patient is awake, alert and oriented 3 . - Labs CBC & Chem 7: 08/04/19 06:15 08/05/19 05:51 Labs: Abnormal Lab Results - Last 24 Hours (Table) 08/05/19 Range/Units 05:51 Carbon Dioxide 33 H (22-30) mmol/L BUN 28 H (7-17) mg/dL Glucose 126 H (74-99) mg/dL Microbiology - Last 24 Hours (Table) 08/03/19 06:12 Blood Culture - Preliminary Blood No Growth after 48 hours Assessment and Plan Plan: Assessment and plan #1 atypical chest pain, EKG shows a sinus tachycardia with a left bundle-branch block pattern and frequent PVCs. Troponins 0.020, 0.086, 0.050. Although patient's symptoms are very atypical for acute coronary syndrome, cannot completely rule out acute coronary syndrome. Abnormality in troponin could also be secondary to infection. #2 permanent pacemaker implantation for Mobitz2 in June of this year #3 acute polynephritis with evidence of fever and leukocytosis, tachycardia, el evated lactic acid #4 COPD #5 nicotine dependence, patient states she quit smoking in February #6 hyperlipidemia #7 history of TIA Plan we will add a small dose of Norvasc to the patient's medication regime to optimize blood pressure control. She may be able to be discharged home from our perspective, we'll make her a follow-up appointment in the office post discharge. DNP note has been reviewed, I agree with a documented findings and plan of care. Patient was seen and examined.
--- NOTE | 2019-08-05 15:47 | P.PN ---
Subjective Progress Note Date: 08/05/19 Principal diagnosis: Weakness, fatigue This is a very pleasant 84-year-old female patient who follows with Dr. 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 She had recently developed increased weakness and was in bed for nearly 3 days this week according to her daughter. She states she was somewhat dusky and vaughan at times as well. The patient initially refused to see a physician or come to the hospital but on 08/01/2019 she was brought in by her family. Chest x-ray revealed COPD but no acute pulmonary process. There is a stable pleural parenchymal opacity and left lung base representing most likely scarring. The patient does have a 60+ year smoking history and quit February 2019. She had not been seen by a cyber instructor in the past. She has a albuterol inhaler that she infrequently uses. Initial white count 22.0. Lactic acid 2.5. Troponin 0.050. Urine culture positive for gram-negative bacilli. Blood cultures are now positive for E. coli. He was initiated on ceftriaxone and doxycycline. She was started on IV Solu-Medrol and bronchodilators. CT angiogram was performed yesterday that revealed no evidence of pulmonary emboli. There was however noted soft tissue density in the left infrahilar region anter ior to the descending thoracic aorta measuring 3.4 x 2.1 cm. This could reflect conglomerate adenopathy however mass is not excluded. We were consulted today for the same. She is seen on the selective care unit. Awake and alert in no acute distress. Sitting up at the bedside. Denies any worsening shortness of breath cough or congestion. Never hemoptysis. She is maintaining O2 saturation in the mid 90s on 3 L/m per nasal cannula. She's been afebrile. Hemodynamically stable. Current white count 16.7. Hemoglobin 9.2. Creatinine 0.59. On 08/04/2019 patient seen in follow-up on selective care unit. Patient is awake and alert, in no acute distress, lung sounds reveal a few basilar rales, no significant rhonchi or wheezing, no specific complaints today, no chest pain, no cough or congestion, on 2 L her pulse ox was 94-95%, afebrile, hemodynamically stable, patient is on Rocephin and doxycycline, urine cultures were positive for E. coli, blood culture showed E. coli, follow blood culture so far is negative. Today's labs have been reviewed, white blood cell is trending down, down to 13.9 on today's labs, hemoglobin is 9.5, sodium is 142, potassium is 4.7, chloride is 108, CO2 is 30, BUN is 21 creatinine 0.65. On 08/05/2019 patient seen in follow-up on selective care unit. She is awake and alert, in no acute distress, she is up ambulating in the room, no specific complaints, no acute events overnight, no fever or chills, she was found to have E. coli bacteremia, and E. coli urinary tract infection. She is on combination of doxycycline and Rocephin, she's been afebrile. No complaints of shortness of breath, room air pulse ox is 94%. These labs have been reviewed, showing electrolytes within normal limits, CO2 33, BUN is 20 creatinine 0.75. No significant cough or congestion. Objective - Vital Signs Vital signs: Vital Signs Temp 98.7 F 08/05/19 12:00 Pulse 84 08/05/19 12:00 Resp 16 08/05/19 12:00 BP 157/102 08/05/19 12:00 Pulse Ox 94 L 08/05/19 12:00 Intake & Output 08/04/19 08/05/19 08/05/19 18:59 06:59 18:59 Intake Total 1654 240 Output Total 900 200 Balance 754 40 Weight 56 kg Intake: Intake, IV Titration 250 Amount Sodium Chloride 0.9% 1, 150 000 ml @ 50 mls/hr IV . Q20H [facility] Rx#:[id number] cefTRIAXone 2 gm In 100 Sodium Chloride 0.9% 50 ml @ 100 mls/hr IVPB Q24HR [facility] Rx#:[id number] Oral 1404 240 Output: Urine 900 200 Other: Voiding Method Toilet Toilet # Voids 1 1 # Bowel Movements 2 - Exam GENERAL EXAM: Alert, very pleasant, 84-year-old white female, on 2 L of oxygen comfortable in no apparent distress. HEAD: Normocephalic/atraumatic. EYES: Normal reaction of pupils, equal size. Conjunctiva pink, sclera white. NOSE: Clear with pink turbinates. THROAT: No erythema or exudates. NECK: No masses, no JVD, no thyroid enlargement, no adenopathy. CHEST: No chest wall deformity. Symmetrical expansion. LUNGS: Equal air entry with minimal basilar crackles, no wheeze, rhonchi or dullness. CVS: Regular rate and rhythm, normal S1 and S2, no gallops, no murmurs, no rubs ABDOMEN: Soft, nontender. No hepatosplenomegaly, normal bowel sounds, no guarding or rigidity. EXTREMITIES: No clubbing, no edema, no cyanosis, 2+ pulses and upper and lower extremities. MUSCULOSKELETAL: Muscle strength and tone normal. SPINE: No scoliosis or deformity SKIN: No rashes CENTRAL NERVOUS SYSTEM: Alert and oriented -3. No focal deficits, tone is normal in all 4 extremities. PSYCHIATRIC: Alert and oriented -3. Appropriate affect. Intact judgment and insight. - Labs CBC & Chem 7: 08/04/19 06:15 08/05/19 05:51 Labs: Abnormal Lab Results - Last 24 Hours (Table) 08/05/19 Range/Units 05:51 Carbon Dioxide 33 H (22-30) mmol/L BUN 28 H (7-17) mg/dL Glucose 126 H (74-99) mg/dL Microbiology - Last 24 Hours (Table) 08/03/19 06:12 Blood Culture - Preliminary Blood No Growth after 48 hours Assessment and Plan Plan: Assessment: 1 Profound weakness, fever and fatigue secondary to bacteremia with E. coli, improved 2 Urinary tract infection secondary to E. coli 3 Left perihilar soft tissue measuring 3.4 x 2.1 anterior to the descending thoracic aorta. Suspicious for conglomerate adenopathy versus mass 4 50+ pack per day smoking history, quit February 2019 5 elevated troponins 6 Moderate to severe mitral regurgitation 7 Moderate to severe pulmonary hypertension 8 Severe bradycardia with Mobitz type II AV block, status post permanent pacemaker implantation May 2019 9 History of TIA 10 Hyperlipidemia Plan: Patient is doing well, clinically stable, she is tolerating ambulation, her weakness is improving, her gait is stable, no fever or chills, she is on Rocephin and doxycycline, she was found to have E. coli bacteremia and E. coli urinary tract infection, no worsening dyspnea, she is on room air, no co mpressive chest pain, cough or congestion, patient can be considered for discharge home today, and she will need outpatient follow-up with Dr. Herrera in the office in regards to the left perihilar soft tissue mass. I performed a history & physical examination of the patient and discussed their management with my nurse practitioner, Judith Mims. I reviewed the nurse practitioner's note and agree with the documented findings and plan of care. Lung sounds are positive for minimal crackles. The findings and the impression was discussed with the patient. I attest to the documentation by the nurse practitioner. Time with Patient: Less than 30
--- NOTE | 2019-08-05 20:08 | PN ---
PROGRESS NOTE DATE OF SERVICE: 08/05/2019 REASON FOR FOLLOWUP: E coli bacteremia secondary to urinary source. INTERVAL HISTORY: The patient is currently afebrile. The patient has been breathing comfortably. The patient denies having any chest pain or shortness of breath or cough. No nausea, vomiting, abdominal pain or diarrhea. PHYSICAL EXAMINATION: Blood pressure is 157/100 with a pulse of 84, temperature 98.7. She is 94% on room air. General description is an elderly female up in the bed in no distress. RESPIRATORY SYSTEM: Unlabored breathing with decreased breath sounds at the base. No wheeze. HEART: S1, S2. Regular rate and rhythm. ABDOMEN: Soft. No tenderness. LABS: Creatinine 0.75. Follow-up blood culture has been negative. DIAGNOSTIC IMPRESSION AND PLAN: Patient with Escherichia coli bacteremia secondary to urinary source. Follow-up blood culture has been negative. Patient is currently covered with Rocephin with the plan to finish therapy with oral Cipro. Continue with supportive care. MMODL / IJN: [id number] /
[2019-08-05] MEDS: SODIUM CHLORIDE 0.9% 1,000 ML IV SCH (23:46)
[2019-08-06 07:59] LABS: Basophils # (A) 0.1 k/uL (0-0.2); Basophils % (A) 0 %; Eosinophils % (A) 0 %; HCT 32.3 % (34.0-46.0); HGB 9.9 gm/dL (11.4-16.0); Lymphocytes # (A) 0.8 k/uL (1.0-4.8); Lymphocytes % (A) 5 %; MCH 28.3 pg (25.0-35.0); MCHC 30.7 g/dL (31.0-37.0); MCV 92.3 fL (80.0-100.0); Mean Platelet Volume 8.1; Monocytes % (A) 6 %; Neutrophils # (A) 14.2 k/uL (1.3-7.7); Neutrophils % (A) 87 %; Platelet Count 509 k/uL (150-450); RDW 13.8 % (11.5-15.5); WBC 16.3 k/uL (3.8-10.6)
[2019-08-06] MEDS: METOPROLOL TARTRATE 25 MG TAB PO SCH (08:39)
[2019-08-06] MEDS: ATORVASTATIN 20 MG TAB PO SCH (08:39)
[2019-08-06] MEDS: DOXYCYCLINE 100 MG CAP PO SCH (08:39)
[2019-08-06] MEDS: APIXABAN 2.5 MG TABLET PO SCH (08:39)
[2019-08-06] MEDS: FAMOTIDINE 20 MG TAB PO SCH (08:39)
[2019-08-06] MEDS: ASPIRIN 81 MG PO SCH (08:39)
[2019-08-06] MEDS: methylPREDNISolone SOD SUCCI 40 MG/ML 1 ML VIAL IV SCH (08:40)
[2019-08-06] MEDS: BACITRACIN OINT 1 EACH PACKET TOPICAL SCH ×2 (08:40→10:44)
[2019-08-06 09:24] VITALS: BP 139/77; PULSE 62; RESP 20; TEMP 98
--- NOTE | 2019-08-06 13:02 | PN ---
PROGRESS NOTE DATE OF SERVICE: 08/06/2019. REASON FOR FOLLOWUP: E coli bacteremia secondary to urinary source. INTERVAL HISTORY: The patient is currently afebrile. Patient is breathing comfortably. The patient denies having any chest pain or any cough. No nausea, no vomiting. No abdominal pain. No diarrhea. PHYSICAL EXAMINATION: On examination, her blood pressure is 139/77 with a pulse of 62, temperature 98. She is 90% on room air. General description is an elderly female up in the bed in no distress. RESPIRATORY SYSTEM: Unlabored breathing. Decreased breath sounds at the bases. No wheeze. HEART: S1, S2. Regular rate and rhythm. ABDOMEN: Soft, no tenderness. LABS: Hemoglobin 9.1, white count 16.3. Blood culture repeat has been negative. DIAGNOSTIC IMPRESSION AND PLAN: Patient with Escherichia coli bacteremia secondary to the urinary source in this patient. Overall clinical improvement. Followup blood culture negative. White count slightly elevated, will monitor closely in outpatient setting. Antibiotic on discharge will be Cipro 500 mg twice a day for 2 weeks with close outpatient followup. MMODL / IJN: [id number] /
--- NOTE | 2019-08-06 14:13 | P.PN ---
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 Patient has a history of nicotine dependence, she states that she quit smoking in February of this year, history of a TIA, left bundle-branch block, patient also had a loop recorder with subsequent implantation of a permanent pacemaker in June for severe bradycardia, Mobitz type II AV block. According to the patient, since then she states that she has not felt well, has intermittent chest discomfort. An overall feels felt extremely tired. He presents to the hospital on this occasion with an episode of left-sided chest pain which she describes as a poking-type pain that felt like a pin poking her. She also states that she felt chills at home and may have had a mild fever. Her chest x-ray on presentation here showed stable borderline heart size, stable pleural parenchymal obesity in the left base, COPD. Her EKG on presentation here showed a sinus tachycardia with left bundle branch block pattern and frequent PVCs. Renal ultrasound showed mild right-sided hydronephrosis. No renal mass seen. No ureteral jet skiing on the right side suggestive of obstruction, numerous gallstones noted. Blood pressure 108/60 with a heart rate in the 70s, 97% on 3 L of oxygen. White blood cell count on presentation here was 22, 19.7 this morning, hemoglobin on arrival 12.2, 10.0 this morning, platelet count 351. Sodium 138, potassium 3.8, BUN 26, creatinine 0.7. Plasma lactic acid 7 on admission, 2.5 this morning. Troponins 0.020, 0.086, 0.050. Positive UTI. Blood pressure on arrival here 110/60 with a heart rate in the 70s, patient did have a temperature of 100.9. Afebrile this morning. At the time of my examination this morning, patient is currently chest pain-free, no complaints. 08/05/2019 Patient was seen and examined this morning, overall doing well. No complaints. Anticipating discharge today.blood pressurure 148/76 with a heart rate in the 70s, 92% on room air. We will add a small dose of Norvasc to her medication regime for optimal blood pressure control. 08/06/2019 Patient seen and examined this morning, hemodynamically stable.but pressure 138/70 with a heart rate in the 60s, 90% on room air. Objective - Vital Signs Vital signs: Vital Signs Temp 98.0 F 08/06/19 08:00 Pulse 62 08/06/19 08:00 Resp 20 08/06/19 08:00 BP 139/77 08/06/19 08:00 Pulse Ox 90 L 08/06/19 08:00 Intake & Output 08/05/19 08/06/19 08/06/19 18:59 06:59 18:59 Intake Total 480 240 Output Total 200 Balance 280 240 Weight 54.8 kg Intake: Oral 480 240 Output: Urine 200 Other: Voiding Method Toilet Toilet # Voids 1 2 - Exam PHYSICAL EXAMINATION: GENERAL: 84-year-old female in no acute distress at the time of my examination HEENT: Head is atraumatic, normocephalic. Pupils equal, round. Sclera an icteric. Conjunctiva are clear. Mucous membranes of the mouth are moist. Neck is supple. There is no elevated jugular venous pressure. No carotid bruit is heard. HEART EXAMINATION: Heart S1, S2 normal. No murmur or gallop heard. CHEST EXAMINATION: Lungs are clear to auscultation and precussion. No chest wall tenderness is noted on palpation or with deep breathing. ABDOMEN: Soft, nontender. Bowel sounds are heard. No organomegaly noted. EXTREMITIES: 2+ peripheral pulses with no evidence of peripheral edema and no calf tenderness noted. NEUROLOGIC patient is awake, alert and oriented 3 . - Labs CBC & Chem 7: 08/06/19 06:02 08/05/19 05:51 Labs: Abnormal Lab Results - Last 24 Hours (Table) 08/06/19 Range/Units 06:02 WBC 16.3 H (3.8-10.6) k/uL RBC 3.50 L (3.80-5.40) m/uL Hgb 9.9 L (11.4-16.0) gm/dL Hct 32.3 L (34.0-46.0) % MCHC 30.7 L (31.0-37.0) g/dL Plt Count 509 H (150-450) k/uL Neutrophils # 14.2 H (1.3-7.7) k/uL Lymphocytes # 0.8 L (1.0-4.8) k/uL Microbiology - Last 24 Hours (Table) 08/03/19 06:12 Blood Culture - Preliminary Blood No Growth after 72 hours Assessment and Plan Plan: Assessment and plan #1 atypical chest pain, EKG shows a sinus tachycardia with a left bundle-branch block pattern and frequent PVCs. Troponins 0.020, 0.086, 0.050. Although patient's symptoms are very atypical for acute coronary syndrome, cannot completely rule out acute coronary syndrome. Abnormality in troponin could also be secondary to infection. #2 permanent pacemaker implantation for Mobitz2 in June of this year #3 acute polynephritis with evidence of fever and leukocytosis, tachycardia, elevated lactic acid #4 COPD #5 nicotine dependence, patient states she quit smoking in February #6 hyperlipidemia #7 history of TIA Plan from cardiology's perspective, patient may be able to be discharged home, we'll continue current medications.
--- NOTE | 2019-08-15 14:55 | P.DS ---
Providers Date of admission: 08/03/19 08:29 Attending physician: Janak Kraus MD Consults: 08/01/19 12:52 Consult Physician Urgent Consulting Provider: Javier Doan Consult Reason/Comments: chest pain Do you want consulting provider notified?: Yes 08/02/19 11:01 Consult Physician Urgent Consulting Provider: Ady Parry Consult Reason/Comments: uti and mild Rt hydronephrosis Do you want consulting provider notified?: Yes Consult Physician Urgent Consulting Provider: Kiko Reyes Consult Reason/Comments: uti and mild Rt hydronephrosis Do you want consulting provider notified?: Yes 08/02/19 21:12 Consult Physician Routine Consulting Provider: Altaf Anne Consult Reason/Comments: left lung mass, infra-hilar Do you want consulting provider notified?: Yes Primary care physician: Josue Meier [facility] Course: Diagnoses: Acute bilateral Pyelonephritis, more on the right side. Positive blood culture with E. 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 Lung mass Loose stool, improved as per patient. Possible small folliculitis of the left ear, used topical antibiotics Abnormal EKG with fusion complexes and elevated QTC at 544 history of Bradycardia status post pacemaker Hyperlipidemia History of CVA/TIA Hospital course: This is a pleasant 84 years old female with past medical history of CVA/TIA, hyperlipidemia, bradycardia with pacemaker since 06/2019, UTI. Patient presents with significant dyspnea of one-day duration associated with dry cough but no chest pain. Patient was noticed to have fever at home however she denies diarrhea, she did not notice urinary symptoms however her urine was cloudy when is collected and sample is suspicious for urinary tract infection. She she denies back tenderness and on exam she has no costovertebral angle tenderness. She denies weakness or numbness. No headache. No rash. She's EX smoker, quit months ago. No alcohol or illicit drugs. She follows with Dr. Meier refer her to urologist, however she does not know why she was referred to urologist. She sees Dr. Montenegro for bradycardia and pacemaker inserted the last June. She takes Eliquis 2.5 mg twice daily but she does not know why. On the presentation patient was febrile at 100.9, with left showing leukocytosis of 20 K, Lactic acid is elevated at 7.0. EKG: Shows sinus tachycardia with PVCs and fusion complex, heart rate of 126, QTC is 544. Chest x-ray: No acute process. COPD On admission patient was started on aspirin 325 mg and Rocephin 1 g daily also she received 1 L of normal saline. Eventually her lactic acid came back to normal. Renal ultrasound showing mild hydronephrosis and bilateral hydronephrosis more on the right side. Patient was evaluated by ID and urology service. Patient was treated with doxycycline and Rocephin initially and switch on discharge to Cipro for 12th day of the recommendation of infectious disease team, based on the positive urine and blood also culture with E. coli. Neurologist recommended cystoscopy as an outpatient. Patient and daughter at bedside are aware of this recommendation on admission patient's second troponin started trending up from 0.02 to 0.08. Child Protection Specialist evaluated the patient and recommended echocardiogram ejection fraction of 50-55%, and apical anterior wall motion is hypokinetic with apical septum LV wall motion is hypokinetic. Patient was treated with heparin drip upon the recommendation of the dispatcher service or work, and switch later on to her home dose of Eliquis at 2.5 mg twice daily. Patient continued on aspirin. Also she was on metoprolol CT of the chest showed possible lung mass. Pulmonary consult was placed. Excellence Consultant recommended thoracic surgeon however the patient and daughter at bedside declined . Risks, benefits and alternatives are explained for the patient and daughter. And they chose to follow-up with Dr. Herrera in 4 weeks to repeat CAT scan of the chest upon his recommendation. Patient daughter at bedside were counseled extensively about the importance of outpatient follow-up for various tests, including cystoscopy with her urologist, repeat CAT scan of the thorax in [address] 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 Risks including but not limited to cancer are explained for the patient and daughter on several occasions and they verbalized understanding and acceptance. Also recommendation for outpatient stress test with the dispatcher service or work and they agree with it Patient also has been treated for COPD exacerbation with Solu-Medrol and doxycycline a bronchodilator. Patient also was feeling generally weak. The patient been admitted and hospitalized for a few days with multiple and complex medical problems, and she is an several medications some of them increased risk of falling, and also she is on steroids and going to be discharged on steroids as well that increased risk of myopathy. TSH checked it was was within normal limits. Eventually patient back close to her baseline, patient is fully awake and oriented. She denies chest pain or dyspnea. No abdominal pain. No change in urine or bowel habits. No nausea vomiting. No fever. Patient and daughter at bedside ready to be discharged yesterday, complaints because she was not discharged yesterday although the patient and daughter understand they're not kept in the hospital because there will. I explained to the daughter and patient that yesterday patient was not medically stable for discharge. However patient eventually cleared. For example pulmonary team evaluated the patient and cleared her for discharge, TSH: Back normal, physical therapy, occupational therapy consult was requested however patient . Risks including but not limited to falling, intracranial hemorrhage, fracture, organ dysfunction, and/or are explained to her being the fact she is on blood thinner Eliquis and aspirin and been generally weak and decondit ioned she is at-risk of falling and risk of complications. Also I explained to them the need for physical therapy as the patient generally weak, deconditioned, she was on medication which might make her myopathic like steroids which she's going to be discharged on. However patient continued to refuse physical therapy. As an alternative patient states she has a walker at home. pt is still eager to be discharged pt will be discharged on antibiotics as per ID team Patient cleared by all consultants including pulmonary, cardiology, neurology and infectious disease. Problems and management plan were discussed with the patient and he verbalized understanding and acceptance Patient was found stable and can be discharged home however he needs follow-up as an outpatient. Patient was instructed to follow up with PCP within one week and patient agrees. All appointments made for the patient upon discharge except for gang mower operator with Dr. Herrera as the office was closed on , patient and daughter understood this . Also they refused to know about the exact dates and times for the other appointments stating that they going to be okay and otherwise they are going to call themselves and adust them , they understand all appointments should be within 1-3 weeks, except pulmonoligst in 4 weeks Prescription provided for the patient and she told me she does not need more prescription for her home medication Gen: patient is a AAOx3, no distress CVS: S1-S2, RRR, no murmur Lungs: B/L CTA, no wheezing Abdomen: soft, no distention, no tenderness, positive bowel sounds Extremity: no leg edema or induration Time spent more than 35 minutes Patient Condition at Discharge: Stable Plan - Discharge Summary Discharge Rx Participant: No New Discharge Prescriptions: New Ciprofloxacin HCl [Cipro] 500 mg PO Q12HR #24 tablet Metoprolol Tartrate [Lopressor] 25 mg PO BID #60 tab Famotidine [Pepcid] 20 mg PO DAILY #15 tab predniSONE 10 mg PO DIRECTED #18 tab Metoprolol Tartrate 25 mg PO BID #60 tab Continue Atorvastatin [Lipitor] 20 mg PO DAILY Ipratropium/Albuterol Sulfate [Combivent Respimat Inhaler] 1 puff INHALATION RT-QID Apixaban [Eliquis] 2.5 mg PO BID Aspirin 81 mg PO DAILY #30 chew Discontinued Metoprolol Succinate [Toprol XL] 12.5 mg PO DAILY Discharge Medication List Atorvastatin [Lipitor] 20 mg PO DAILY 05/09/19 [History] Apixaban [Eliquis] 2.5 mg PO BID 08/01/19 [History] Ipratropium/Albuterol Sulfate [Combivent Respimat Inhaler] 1 puff INHALATION RT- QID 08/01/19 [History] Ciprofloxacin HCl [Cipro] 500 mg PO Q12HR #24 tablet 08/04/19 [Rx] Aspirin 81 mg PO DAILY #30 chew 08/06/19 [Rx] Famotidine [Pepcid] 20 mg PO DAILY #15 tab 08/06/19 [Rx] Metoprolol Tartrate 25 mg PO BID #60 tab 08/06/19 [Rx] Metoprolol Tartrate [Lopressor] 25 mg PO BID #60 tab 08/06/19 [Rx] predniSONE 10 mg PO DIRECTED #18 tab 08/06/19 [Rx] Follow up Appointment(s)/Referral(s): Altaf Anne MD [STAFF PHYSICIAN] - 1 Week (Need repeat ct of the chest in 4 weeks. - Please tell veterinary receptionist this when you call. Office closed, please call for a follow up appointment on August 08 when they reopen. ) Javier Doan MD [STAFF PHYSICIAN] - 08/21/19 3:00 pm Josue Meier DO [Primary Care Provider] - 08/13/19 3:30 pm Kiko Reyes MD [STAFF PHYSICIAN] - 08/12/19 9:45 am Xavier Boogie MD [STAFF PHYSICIAN] - 08/27/19 8:40 am (Need cystocopy as out- patient setting, Dr. Boogie will talk with you about this at the appointment. ) Patient Instructions/Handouts: Urinary Tract Infection in Women (DC), Sepsis (GEN), Bacteremia (DC) Discharge Disposition: HOME SELF-CARE
== END 2019-08-06 12:30 | disposition home or self-care (01) | DRG 872 ==
LOC: EC 10:05 → 3SCARD 12:52 → UNDOADMOB 12:52 → 1SOBS 12:52 → 3SCARD 19:57 → OBSVTOIN 08-03 08:29
PROVIDERS: ADMIT Internal Medicine; ATTEND Internal Medicine
DX: A41.51 Sepsis due to Escherichia coli [E. coli] (principal); J44.1 Chronic obstructive pulmonary disease with (acute) exacerbation; N13.6 Pyonephrosis; E78.5 Hyperlipidemia, unspecified; Z87.891 Personal history of nicotine dependence; I27.20 Pulmonary hypertension, unspecified; I34.0 Nonrheumatic mitral (valve) insufficiency; I44.7 Left bundle-branch block, unspecified; Z79.01 Long term (current) use of anticoagulants; Z79.82 Long term (current) use of aspirin; Z79.899 Other long term (current) drug therapy; Z80.0 Family history of malignant neoplasm of digestive organs; Z80.8 Family history of malignant neoplasm of other organs or systems; Z86.73 Personal history of transient ischemic attack (TIA), and cerebral infarction without residual deficits; Z90.710 Acquired absence of both cervix and uterus; Z95.0 Presence of cardiac pacemaker; Z98.42 Cataract extraction status, left eye; Z98.41 Cataract extraction status, right eye; Z88.2 Allergy status to sulfonamides; Z88.8 Allergy status to other drugs, medicaments and biological substances; R79.89 Other specified abnormal findings of blood chemistry
CPT/HCPCS: 36415; 71046; 71275; 74176; 76770; 80048; 80053; 80061; 81001; 83605; 83735; 84443; 84484; 85025; 85379; 85610; 85730; 87040; 87077; 87086; 87186; 93005; 93306; 94640; 96361; 96365; 96374; 96375; 99285

== ENCOUNTER 2019-08-23 07:34 | Inpatient (IN) | payer MEDICARE, OTHER ==
[2019-08-23] MEDS ORDERED: ASPIRIN 81 MG PO STA (08:06)
[2019-08-23] MEDS ORDERED: NITROGLYCERIN OINT 1 INCH/GM PACKET TOPICAL STA (08:06)
[2019-08-23] MEDS ORDERED: KETOROLAC 30 MG/ML 1 ML VIAL IVP STA (08:06)
--- NOTE | 2019-08-23 08:43 | ED ---
General Adult HPI - General Chief complaint: Chest Pain Stated complaint: rib pain Time Seen by Provider: 08/23/19 07:40 Source: patient, RN notes reviewed, old records reviewed Mode of arrival: ambulatory Limitations: no limitations - History of Present Illness Initial comments: This is an 84-year-old female with past medical history significant for COPD. Patient states on Monday of this week she started having pain in the left side of her chest. Patient states it does not hurt more when she takes a deep breath only when she gets up and starts walking the pain comes on very significantly. Patient denies any fever chills or cough. Patient states she saw her company dancer they told it was pleurisy. Patient was sent home with steroids but they have not helped and the pain continues to be there anytime she gets up and walks. Patient states lying in bed the pain is a little but not very bad. Patient denies any rashes. Patient denies any skin tenderness. Patient denies any abdominal pain. Patient denies lightheadedness dizziness. Patient denies any headache patient denies any numbness or weakness - Related Data Home Medications Medication Instructions Recorded Confirmed Atorvastatin [Lipitor] 20 mg PO DAILY 05/09/19 08/01/19 Apixaban [Eliquis] 2.5 mg PO BID 08/01/19 08/01/19 Ipratropium/Albuterol Sulfate 1 puff INHALATION RT-QID 08/01/19 08/01/19 [Combivent Respimat Inhaler] Previous Rx's Medication Instructions Recorded Ciprofloxacin HCl [Cipro] 500 mg PO Q12HR #24 tablet 08/04/19 Aspirin 81 mg PO DAILY #30 chew 08/06/19 Famotidine [Pepcid] 20 mg PO DAILY #15 tab 08/06/19 Metoprolol Tartrate 25 mg PO BID #60 tab 08/06/19 Metoprolol Tartrate [Lopressor] 25 mg PO BID #60 tab 08/06/19 predniSONE 10 mg PO DIRECTED #18 tab 08/06/19 Allergies Allergy/AdvReac Type Severity Reaction Status Date / Time Sulfa (Sulfonamide Allergy Unknown Verified 08/23/19 07:45 Antibiotics) metformin AdvReac Unknown Diarrhea Verified 08/23/19 07:45 Review of Systems ROS Statement: Those systems with pertinent positive or pertinent negative responses have been documented in the HPI. ROS Other: All systems not noted in ROS Statement are negative. Past Medical History Past Medical History: CVA/TIA, Hyperlipidemia Additional Past Medical History / Comment(s): TIA 02/11/19-no residual effects, bradycardia with pacemaker, UTI History of Any Multi-Drug Resistant Organisms: None Reported Past Surgical History: Appendectomy, Hernia Repair, Hysterectomy, Pacemaker Additional Past Surgical History / Comment(s): 02/2019 Loop recorder, 05/14/19 pacemaker, abdominal hernia, bilateral cataract removal Past Anesthesia/Blood Transfusion Reactions: No Reported Reaction Type of Cardiac Device: Loop, Permanent Pacemaker Device Placement Date:: loop 02/2019, pacer 05/14/19 Past Psychological History: No Psychological Hx Reported Smoking Status: Former smoker Past Alcohol Use History: None Reported Past Drug Use History: None Reported - Past Family History Mother Family Medical History: Cancer Additional Family Medical History / Comment(s): Brain cancer. Father Family Medical History: Cancer Additional Family Medical History / Comment(s): Liver cancer General Exam - General Exam Comments Initial Comments: GENERAL: Patient is well-developed and well-nourished. Patient is nontoxic and well- hydrated and is in mild distress. ENT: Neck is soft and supple. No significant lymphadenopathy is noted. Oropharynx is clear. Moist mucous membranes. Neck has full range of motion without eliciting any pain. EYES: The sclera were anicteric and conjunctiva were pink and moist. Extraocular movements were intact and pupils were equal round and reactive to light. Eyelids were unremarkable. PULMONARY: Unlabored respirations. Good breath sounds bilaterally. No audible rales rhonchi or wheezing was noted. CARDIOVASCULAR: There is a regular rate and rhythm without any murmurs gallops or rubs. There is no reproducible tenderness along the chest wall ABDOMEN: Soft and nontender with normal bowel sounds. No palpable organomegaly was noted. There is no palpable pulsatile mass. SKIN: Skin is clear with no lesions or rashes and otherwise unremarkable. NEUROLOGIC: Patient is alert and oriented x3. Cranial nerves II through XII are grossly intact. Motor and sensory are also intact. Normal speech, volume and content. Symmetrical smile. MUSCULOSKELETAL: Normal extremities with adequate strength and full range of motion. No lower extremity swelling or edema. No calf tenderness. LYMPHATICS: No significant lymphadenopathy is noted PSYCHIATRIC: Normal psychiatric evaluation. Limitations: no limitations Course Vital Signs 08/23/19 08/23/19 08/23/19 07:41 09:00 10:26 Temperature 97.9 F Pulse Rate 97 70 95 Respiratory 20 18 18 Rate Blood Pressure 119/68 124/74 O2 Sat by Pulse 98 98 97 Oximetry Medical Decision Making - Medical Decision Making EKG shows sinus rhythm with occasional PAC at 80 bpm TX interval 176 QRS is 132 QT interval 370 QTC is 447. Patient's EKG shows no ST segment elevation. Aspirins going to be held on this patient because of the low hemoglobin. Patient continues to experience some chest pain while in the emergency department. I spoke with Dr. Kulkarni agreed to admit the patient admitted the patient consult cardiology. I did CBCs every 6 hours. - Lab Data Result diagrams: 08/23/19 08:23 08/23/19 08:23 Lab Results 08/23/19 08/23/19 08/23/19 Range/Units 08:23 08:23 08:23 WBC 10.3 (3.8-10.6) k/uL RBC 2.47 L (3.80-5.40) m/uL Hgb 7.1 L D (11.4-16.0) gm/dL Hct 23.5 L (34.0-46.0) % MCV 95.2 (80.0-100.0) fL MCH 28.8 (25.0-35.0) pg MCHC 30.2 L (31.0-37.0) g/dL RDW 15.7 H (11.5-15.5) % Plt Count 379 (150-450) k/uL Neutrophils % 77 % Lymphocytes % 14 % Monocytes % 7 % Eosinophils % 1 % Basophils % 1 % Neutrophils # 7.9 H (1.3-7.7) k/uL Lymphocytes # 1.4 (1.0-4.8) k/uL Monocytes # 0.7 (0-1.0) k/uL Eosinophils # 0.1 (0-0.7) k/uL Basophils # 0.1 (0-0.2) k/uL Hypochromasia Slight PT 9.9 (9.0-12.0) sec INR 0.9 (<1.2) APTT 19.6 L (22.0-30.0) sec D-Dimer 0.46 (<0.60) mg/L FEU Sodium 138 (137-145) mmol/L Potassium 4.0 (3.5-5.1) mmol/L Chloride 105 (98-107) mmol/L Carbon Dioxide 27 (22-30) mmol/L Anion Gap 6 mmol/L BUN 35 H (7-17) mg/dL Creatinine 0.65 (0.52-1.04) mg/dL Est GFR (CKD-EPI)AfAm >90 (>60 ml/min/1.73 sqM) Est GFR (CKD-EPI)NonAf 83 (>60 ml/min/1.73 sqM) Glucose 86 (74-99) mg/dL Calcium 8.8 (8.4-10.2) mg/dL Magnesium 2.1 (1.6-2.3) mg/dL Total Bilirubin 0.5 (0.2-1.3) mg/dL AST 23 (14-36) U/L ALT 12 (4-34) U/L Alkaline Phosphatase 81 (38-126) U/L Troponin I (0.000-0.034) ng/mL Total Protein 5.4 L (6.3-8.2) g/dL Albumin 3.0 L (3.5-5.0) g/dL 08/23/19 Range/Units 08:23 WBC (3.8-10.6) k/uL RBC (3.80-5.40) m/uL Hgb (11.4-16.0) gm/dL Hct (34.0-46.0) % MCV (80.0-100.0) fL MCH (25.0-35.0) pg MCHC (31.0-37.0) g/dL RDW (11.5-15.5) % Plt Count (150-450) k/uL Neutrophils % % Lymphocytes % % Monocytes % % Eosinophils % % Basophils % % Neutrophils # (1.3-7.7) k/uL Lymphocytes # (1.0-4.8) k/uL Monocytes # (0-1.0) k/uL Eosinophils # (0-0.7) k/uL Basophils # (0-0.2) k/uL Hypochromasia PT (9.0-12.0) sec INR (<1.2) APTT (22.0-30.0) sec D-Dimer (<0.60) mg/L FEU Sodium (137-145) mmol/L Potassium (3.5-5.1) mmol/L Chloride (98-107) mmol/L Carbon Dioxide (22-30) mmol/L Anion Gap mmol/L BUN (7-17) mg/dL Creatinine (0.52-1.04) mg/dL Est GFR (CKD-EPI)AfAm (>60 ml/min/1.73 sqM) Est GFR (CKD-EPI)NonAf (>60 ml/min/1.73 sqM) Glucose (74-99) mg/dL Calcium (8.4-10.2) mg/dL Magnesium (1.6-2.3) mg/dL Total Bilirubin (0.2-1.3) mg/dL AST (14-36) U/L ALT (4-34) U/L Alkaline Phosphatase (38-126) U/L Troponin I <0.012 (0.000-0.034) ng/mL Total Protein (6.3-8.2) g/dL Albumin (3.5-5.0) g/dL Critical Care Time Critical Care Time: Yes Total Critical Care Time: 35 Disposition Clinical Impression: Unstable angina pectoris, Anemia Disposition: ADMITTED IP TO THIS [facility] Referrals: Josue Meier DO [Primary Care Provider] - 1-2 days Time of Disposition: 10:35
--- NOTE | 2019-08-23 08:48 | XR ---
EXAMINATION TYPE: XR chest 2V DATE OF EXAM: 08/23/2019 COMPARISON: 08/01/2019 HISTORY: Left-sided rib pain. Chest pain. TECHNIQUE: Frontal and lateral views of the chest are obtained. FINDINGS: There is no focal air space opacity, pleural effusion, or pneumothorax seen. There is pulm onary per inflation of underlying COPD. The cardiac silhouette size is within normal limits. There is prominence of the ascending thoracic aorta on the lateral view, similar to the prior. Cardiac loop recorder and dual-lead left-sided cardiac device are noted. Multifocal subsegmental left lingular an d basilar atelectasis. Diffuse osseous demineralization. The osseous structures are intact. IMPRESSION: 1. Multifocal subsegmental left-sided atelectasis. 2. No gross acute displaced rib fracture on the left. This patient with left rib pain, if there is fu rther concern dedicated rib series could be considered.
[2019-08-23] MEDS ORDERED: MORPHINE SULFATE 2 MG/ML SYRINGE IVP STA ×2 (09:10→12:07)
[2019-08-23 09:17] LABS: ALT 12 U/L (4-34); AST 23 U/L (14-36); African American GFR (CKD) >90 (>60 ml/min/1.73 sqM); Alkaline Phosphatase 81 U/L (38-126); Anion Gap 6 mmol/L; Blood Urea Nitrogen 35 mg/dL (7-17); Calcium 8.8 mg/dL (8.4-10.2); Carbon Dioxide 27 mmol/L (22-30); Chloride 105 mmol/L (98-107); Glucose 86 mg/dL (74-99); Magnesium 2.1 mg/dL (1.6-2.3); Non-African American GFR(CKD) 83 (>60 ml/min/1.73 sqM); Sodium 138 mmol/L (137-145); Total Bilirubin 0.5 mg/dL (0.2-1.3); Total Protein 5.4 g/dL (6.3-8.2)
[2019-08-23 09:25] LABS: Basophils # (A) 0.1 k/uL (0-0.2); Basophils % (A) 1 %; Eosinophils # (A) 0.1 k/uL (0-0.7); Eosinophils % (A) 1 %; HCT 23.5 % (34.0-46.0); Hypochromasia Slight; Lymphocytes # (A) 1.4 k/uL (1.0-4.8); Lymphocytes % (A) 14 %; MCH 28.8 pg (25.0-35.0); MCHC 30.2 g/dL (31.0-37.0); MCV 95.2 fL (80.0-100.0); Mean Platelet Volume 6.9; Monocytes # (A) 0.7 k/uL (0-1.0); Monocytes % (A) 7 %; Neutrophils # (A) 7.9 k/uL (1.3-7.7); Neutrophils % (A) 77 %; Platelet Count 379 k/uL (150-450); RBC 2.47 m/uL (3.80-5.40); RDW 15.7 % (11.5-15.5); WBC 10.3 k/uL (3.8-10.6)
[2019-08-23 09:27] LABS: HGB 7.1 gm/dL (11.4-16.0)
[2019-08-23 09:31] LABS: D-Dimer 0.46 mg/L FEU (<0.60); INR 0.9 (<1.2); Prothrombin Time 9.9 sec (9.0-12.0)
[2019-08-23 09:34] LABS: Partial Thromboplastin Time 19.6 sec (22.0-30.0)
[2019-08-23] MEDS ORDERED: NITROGLYCERIN SL TABS 0.4 MG TAB SUBLINGUAL PRN (10:35)
[2019-08-23] MEDS: NITROGLYCERIN OINT 1 INCH/GM PACKET TOPICAL SCH ×2 (12:01→17:41)
[2019-08-23] MEDS ORDERED: methylPREDNISolone SOD SUCCI 40 MG/ML 1 ML VIAL IV STA (15:49)
[2019-08-23 18:09] LABS: Basophils # (A) 0.1 k/uL (0-0.2); Basophils % (A) 1 %; Eosinophils # (A) 0.4 k/uL (0-0.7); Eosinophils % (A) 3 %; HCT 22.7 % (34.0-46.0); HGB 7.1 gm/dL (11.4-16.0); Hypochromasia Marked; Lymphocytes # (A) 1.2 k/uL (1.0-4.8); Lymphocytes % (A) 10 %; MCH 30.6 pg (25.0-35.0); MCHC 31.5 g/dL (31.0-37.0); MCV 97.1 fL (80.0-100.0); Monocytes # (A) 0.8 k/uL (0-1.0); Monocytes % (A) 7 %; Neutrophils # (A) 9.8 k/uL (1.3-7.7); Neutrophils % (A) 79 %; Platelet Count 377 k/uL (150-450); RBC 2.33 m/uL (3.80-5.40); RDW 15.3 % (11.5-15.5); WBC 12.5 k/uL (3.8-10.6)
[2019-08-23 20:06] LABS: Glucose,Whole Blood 127 mg/dL (75-99)
[2019-08-23] MEDS: INSULIN ASPART (NovoLOG) 100 UNIT/ML VIAL SQ SCH (20:07)
[2019-08-23] MEDS: PANTOPRAZOLE 40 MG TABLET PO SCH (20:37)
[2019-08-23] MEDS: METOPROLOL TARTRATE 25 MG TAB PO SCH (20:37)
--- NOTE | 2019-08-23 20:47 | P.HPIM ---
History of Present Illness H&P Date: 08/23/19 Chief Complaint: Chest pain, dark stools History of presenting complaint: This is a pleasant 84-year-old patient of Dr. Meier. Patient was recently in the hospital. Patient then had presented with some shortness bit dry cough. fever. She was felt to have acute pyelonephritis. Seen by ID. And urology. Patient also found to have a lung mass possible. The due to follow-up with Dr. Herrera for the same. Patient also due for a cystoscopy as an outpatient. Also plan for outpatient stress test. Patient also treated for COPD exacerbation. For last 4 months patient been having chest wall pain. She describes the pain in different places at different times. Including below the rib cage. Sometimes the pain is on the left lateral chest wall. Sharp in nature. Oscar etimes patients is better laying on the left side. Patient sister been progressive with time. It is not worse with coughing or taking a deep breath. Also patient been noticing some dark stools. Patient's hemoglobin was 12.6 on Bryn now under 7.1. It may be noted that the patient is on anti coagulation. Patient's daughter and son-in-law at the bedside. Patient is also notices that the food sometimes gets stuck in the throat or having difficulty swallowing. Better with liquids. Review of systems: GEN.: Tired EYES: None HEENT: None NECK: None RESPIRATORY: Mild wheezing CARDIOVASCULAR: None GASTROINTESTINAL: None GENITOURINARY: None MUSCULOSKELETAL: Aches and pains in different joints LYMPHATICS: None HEMATOLOGICAL: None PSYCHIATRY: But anxious NEUROLOGICAL: None Past medical history to include: Lung mass being worked up by Dr. Herrera as an outpatient, hyperlipidemia, pacema ker, hyperlipidemia, bradycardia with pacemaker, secondary pulmonary hypertension, tricuspid regurgitation, mitral regurgitation Social history: Patient smoked for close to 65 years, stroke about 6 months ago. Lives alone. Physical examination: VITAL SIGNS: 97.5, 85, 16, 153/72, 92% room air GENERAL: BMI 22.4, laying in bed not in distress. EYES: Pupils equal. Conjunctiva normal. HEENT: External appearance of nose and ears normal, oral cavity grossly normal. NECK: JVD not raised; masses not palpable. HEART: First and second heart sounds are normal; no edema. LUNGS: Respiratory rate increased, decreased breath sounds. ABDOMEN: Soft, nontender, liver spleen not palpable, no masses palpable. PSYCH: [Alert and oriented x3; mood and affect anxious. NEUROLOGICAL: Cranial nerves grossly intact; no facial asymmetry, power and sensation grossly intact. LYMPHATICS: No lymph nodes palpable in the axilla and neck MUSCULOSKELETAL: Osteoarthritis in multiple joints CHEST wall: Patient has tenderness along the chest wall below the axilla and the left lateral chest wall INVESTIGATIONS, reviewed in the clinical context: White count 10.3 hemoglobin 7.1 platelets 379 potassium 4 creatinine 0.65 Patient's hemoglobin was 12.2 on August 01 and 10 on August 02. EKG tracing personally reviewed by me--left bundle-branch block Chest x-ray film personally reviewed by me--shows prominent pulmonary artery no obvious infiltrate Assessment: -Possible GI bleed in a patient who is on eliquis, with hemoglobin at 12.2 and on [place] went to drop down to 10 now currently 7.1. They may be a component of hospital-acquired anemia from repeated blood draws. Patient is having dark stools. 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 Herrera Plan: Care was discussed length with patient's daughter and son at the bedside. Questions were answered. Consultation being made to GI attributed to possible endoscopy. Eliquis has been held for right now. Serial H&H will be carried out. Cardiology also has been consulted. For the musculoskeletal pain keep that is being given. Patient started on PPIs. Bronchodilators and some steroids for COPD Past Medical History Past Medical History: CVA/TIA, Hyperlipidemia Additional Past Medical History / Comment(s): Pt admitted to [facility] on 08/03/19 with bilateral pyelonephritis, mild R hydronephrosis, +blood cultures with EColi, sepsis, septicemia, SIRS, generalized weakness, L ear folliculitis, valvular disease, L perihilar soft tissue abnormality. Other hx: TIA 02/11/19- no residual effects, bradycardia with pacemaker, UTI History of Any Multi-Drug Resistant Organisms: None Reported Past Surgical History: Appendectomy, Hernia Repair, Hysterectomy, Pacemaker Additional Past Surgical History / Comment(s): 02/2019 Loop recorder, 05/14/19 pacemaker, abdominal hernia, bilateral cataract removal Past Anesthesia/Blood Transfusion Reactions: No Reported Reaction Type of Cardiac Device: Loop, Permanent Pacemaker Device Placement Date:: loop 02/2019, pacer 05/14/19 Smoking Status: Former smoker - Past Family History Mother Family Medical History: Cancer Additional Family Medical History / Comment(s): Brain cancer. Father Family Medical History: Cancer Additional Family Medical History / Comment(s): Liver cancer Medications and Allergies Home Medications Medication Instructions Recorded Confirmed Type Atorvastatin [Lipitor] 20 mg PO DAILY 05/09/19 08/23/19 History Apixaban [Eliquis] 2.5 mg PO BID 08/01/19 08/23/19 History Ipratropium/Albuterol Sulfate 1 puff INHALATION RT-QID 08/01/19 08/23/19 History [Combivent Respimat Inhaler] Aspirin 81 mg PO DAILY #30 chew 08/06/19 08/23/19 Rx Famotidine [Pepcid] 20 mg PO DAILY #15 tab 08/06/19 08/23/19 Rx Metoprolol Tartrate [Lopressor] 25 mg PO BID #60 tab 08/06/19 08/23/19 Rx predniSONE See Taper PO DIRECTED 08/23/19 08/23/19 History Allergies Allergy/AdvReac Type Severity Reaction Status Date / Time Sulfa (Sulfonamide Allergy Unknown Verified 08/23/19 10:47 Antibiotics) metformin AdvReac Unknown Diarrhea Verified 08/23/19 10:47 Physical Exam Vitals: Vital Signs Temp Pulse Pulse Resp BP BP Pulse Ox 08/23/19 20:00 97.4 F L 82 18 120/72 93 L 08/23/19 15:20 97.5 F L 85 16 153/72 92 L 08/23/19 13:10 96.9 F L 94 16 131/72 97 08/23/19 12:19 98 18 92/66 98 08/23/19 10:26 95 18 97 08/23/19 09:00 70 18 124/74 98 08/23/19 07:41 97.9 F 97 20 119/68 98 Intake and Output 08/23/19 08/23/19 08/23/19 06:59 14:59 22:59 Other: Voiding Method Toilet # Voids 1 Weight 50.349 kg Results CBC & Chem 7: 08/23/19 17:47 08/23/19 08:23 Labs: Abnormal Lab Results - Last 24 Hours (Table) 08/23/19 08/23/19 08/23/19 Range/Units 08:23 08:23 08:23 WBC (3.8-10.6) k/uL RBC 2.47 L (3.80-5.40) m/uL Hgb 7.1 L D (11.4-16.0) gm/dL Hct 23.5 L (34.0-46.0) % MCHC 30.2 L (31.0-37.0) g/dL RDW 15.7 H (11.5-15.5) % Neutrophils # 7.9 H (1.3-7.7) k/uL APTT 19.6 L (22.0-30.0) sec BUN 35 H (7-17) mg/dL POC Glucose (mg/dL) (75-99) mg/dL Total Protein 5.4 L (6.3-8.2) g/dL Albumin 3.0 L (3.5-5.0) g/dL 08/23/19 08/23/19 Range/Units 17:47 20:03 WBC 12.5 H (3.8-10.6) k/uL RBC 2.33 L (3.80-5.40) m/uL Hgb 7.1 L (11.4-16.0) gm/dL Hct 22.7 L (34.0-46.0) % MCHC (31.0-37.0) g/dL RDW (11.5-15.5) % Neutrophils # 9.8 H (1.3-7.7) k/uL APTT (22.0-30.0) sec BUN (7-17) mg/dL POC Glucose (mg/dL) 127 H (75-99) mg/dL Total Protein (6.3-8.2) g/dL Albumin (3.5-5.0) g/dL Thrombosis Risk Factor Assmnt - Choose All That Apply Any of the Below Risk Factors Present?: Yes Each Factor Represents 1 point: Abnormal pulmonary function (COPD), Sepsis (< 1month) Other Risk Factors: Yes Each Risk Factor Represents 3 Points: Age 75 years or older Other congenital or acquired thrombophilia - If yes, enter type in comment: No Thrombosis Risk Factor Assessment Total Risk Factor Score: 5 Thrombosis Risk Factor Assessment Level: High Risk
[2019-08-23] MEDS ORDERED: methylPREDNISolone SOD SUCCI 40 MG/ML 1 ML VIAL IV SCH (22:00)
[2019-08-24] MEDS: PANTOPRAZOLE 40 MG TABLET PO SCH ×2 (06:16→17:21)
[2019-08-24 06:24] LABS: Glucose,Whole Blood 159 mg/dL (75-99)
[2019-08-24] MEDS: INSULIN ASPART (NovoLOG) 100 UNIT/ML VIAL SQ SCH ×4 (06:25→20:11)
[2019-08-24 06:33] LABS: HCT 23.1 % (34.0-46.0); HGB 7.3 gm/dL (11.4-16.0); Hypochromasia Marked; MCH 30.8 pg (25.0-35.0); MCHC 31.6 g/dL (31.0-37.0); MCV 97.4 fL (80.0-100.0); Macrocytosis Slight; Mean Platelet Volume 7.4; Platelet Count 357 k/uL (150-450); RBC 2.37 m/uL (3.80-5.40); RDW 15.7 % (11.5-15.5); WBC 9.2 k/uL (3.8-10.6)
[2019-08-24 06:34] LABS: Cholesterol 131 mg/dL (<200); HDL Cholesterol 51 mg/dL (40-60); LDL Cholesterol,Calculated 66 mg/dL (0-99); Triglycerides 72 mg/dL (<150)
[2019-08-24] MEDS: methylPREDNISolone SOD SUCCI 40 MG/ML 1 ML VIAL IV SCH ×2 (08:40→20:10)
[2019-08-24] MEDS: METOPROLOL TARTRATE 25 MG TAB PO SCH ×2 (08:41→20:11)
[2019-08-24] MEDS: ATORVASTATIN 20 MG TAB PO SCH (08:41)
[2019-08-24] MEDS ORDERED: FAMOTIDINE 20 MG TAB PO SCH (09:00)
--- NOTE | 2019-08-24 09:49 | XR ---
EXAMINATION TYPE: XR lumbar spine 2 or 3V , 3 VIEWS DATE OF EXAM ORDERED: 08/24/2019 HISTORY: back pain. COMPARISON: None. FINDINGS: The bones are osteopenic likely on the basis of osteoporosis. There is a levoscoliosis present. Alignment is maintained. Vertebral body height is maintained. There is no spondylolisthesis or spondylolysis. There is diffuse disc space loss, most marked at L4-5. Thi s hypertrophic spondylosis present, most marked at L3-4. There is mild, diffuse spondylosis deformans . IMPRESSION: 1. NO ACUTE OSSEOUS LESION. 2. MODERATE DEGENERATIVE CHANGE. 3. DIFFUSE OSTEOPENIA, LIKELY ON THE BASIS OF OSTEOPOROSIS.
--- NOTE | 2019-08-24 11:01 | CONS ---
CONSULTATION DATE OF CONSULTATION: August 24, 2019. REASON FOR THE CONSULTATION: Chest discomfort. HISTORY OF PRESENT ILLNESS: This is a pleasant 84-year-old female patient who sees Dr. Doan in the office as an outpatient with history of permanent pacemaker implantation as well as prior history of smoking who presented to the hospital complaining of chest discomfort. The patient just was discharged from the hospital 2 weeks ago when she was admitted with chest discomfort and mildly abnormal troponin and it was advised conservative medical approach. This time she presented back to the hospital complaining of chest discomfort. She describes the discomfort as a sharp/dull discomfort across the chest. She gives a nature of exertional as well as non-exertional features. No radiation to the arms or neck or shoulders and no associated symptoms of sweating, nausea, dizziness, or syncope. The EKG showed sinus rhythm with sinus tachycardia. The troponin came in to be unremarkable. The chest x-ray did not show any acute abnormalities. Please note that the hemoglobin is low at 7.2 this morning. Also, please note that the patient is on Eliquis and she is not quite sure why she is taking the Eliquis. PAST MEDICAL HISTORY: Past medical history includes: 1. Permanent pacemaker. 2. Chronic obstructive pulmonary disease. 3. Chronic anemia. PAST SURGICAL HISTORY: Past surgical history includes permanent pacemaker implantation. SOCIAL HISTORY: The patient stopped smoking in February of 2019. PHYSICAL EXAMINATION: GENERAL APPEARANCE: She does seems to be in mild pain. VITALS: Were reviewed and seem to be stable. CARDIOVASCULAR: Examination revealed regular rate and rhythm with a normal S1 and S2. The blood work was reviewed and revealed normal troponin. The EKG showed sinus rhythm. ASSESSMENT: 1. Chest discomfort. 2. Chronic anemia. 3. Status post permanent pacemaker implantation. 4. History of smoking. PLAN: 1. I am going to start the patient on oral nitrate. 2. If she continues to have chest discomfort, she needs to have a coronary angiogram. 3. The anemia to be addressed by the primary care team. MMODL / IJN: [id number] /
[2019-08-24 11:39] LABS: Glucose,Whole Blood 132 mg/dL (75-99)
[2019-08-24] MEDS: ISOSORBIDE MONONITRATE ER 30 MG TAB.ER.24H PO SCH (12:48)
--- NOTE | 2019-08-24 13:03 | P.CNPUL ---
History of Present Illness Consult date: 08/24/19 Requesting physician: Nas Kulkarni Reason for consult: COPD Chief complaint: Left-sided chest pain History of present illness: This is a very pleasant 84-year-old female patient who follows with Dr. Meier as her primary care provider. 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 She had was hospitalized in July 2019 after she developed increased weakness and was in bed for nearly 3 days this week according to her daughter. Chest x-ray revealed COPD but no acute pulmonary process. There is a stable pleural parenchymal opacity and left lung base representing most likely scarring. The patient does have a 60+ year smoking history and quit February 2019. She had not been seen by a hospice rn in the past. She has a albuterol inhaler that she infrequently uses. CT angiogram was performed that revealed no evidence of pulmonary emboli. There was however noted soft tissue density in the left infrahilar region anterior to the descending thoracic aorta measuring 3.4 x 2.1 cm. This could reflect conglomerate adenopathy however mass is not excluded. She been seen and evaluated by Dr. Anne at that time. The plan was for a follow-up computed tomography scan of the chest versus possible PET scan in the outpatient setting. She came back to the emergency room yesterday with ongoing complaints of left-sided chest discomfort. Chest x-ray did reveal multifocal subsegmental left-sided atelectasis. No gross acute displaced rib fractures on the left. X-ray of the lumbar spine revealed no acute osseous lesion. There is moderate degenerative change. Diffuse osteopenia likely on the basis of osteoporosis. White count 9.2. Hemoglobin 7.3. Sodium 138. Potassium 4.0. Creatinine 0.65. Troponin negative 3. She is seen today in consultation on the selective care unit. She is currently awake and alert in no acute distress. Denies any left-sided chest discomfort at rest. Feels she does have some worsening pain while up moving. Her family is at the bedside states that also woke her up at night while sleeping. She had been seen and evaluated by cardiology who initiated Imdur. She is also on IV Solu-Medrol. She is maintaining O2 saturations in the 90s on room air. She's been afebrile. Hemodynamically stable. Review of Systems REVIEW OF SYSTEMS: CONSTITUTIONAL: Denies any recent significant weight loss or weight gain. EYES: Denies change in vision. EARS, NOSE, MOUTH, THROAT: Denies headaches, denies sore throat. CARDIOVASCULAR: Positive for chest pain, no palpitations or syncopal episodes. RESPIRATORY: Denies shortness of breath, cough, congestion or hemoptysis. GASTROINTESTINAL: Denies change in appetite, denies abdominal pain GENITOURINARY: Denies hematuria, denies infections. MUSKULOSKELETAL: Denies pain, denies swelling. INTEGUMENTARY: Denies rash, denies eczema. NEUROLOGICAL: Denies recent memory loss, no recent seizure activity. PSYCHIATRIC: Denies anxiety, denies depression. HEMATOLOGIC/LYMPHATIC: Denies anemia, denies enlarged lymph nodes. Past Medical History Past Medical History: CVA/TIA, Hyperlipidemia Additional Past Medical History / Comment(s): Pt admitted to [facility] on 08/03/19 with bilateral pyelonephritis, mild R hydronephrosis, +blood cultures with EColi, sepsis, septicemia, SIRS, generalized weakness, L ear folliculitis, va lvular disease, L perihilar soft tissue abnormality. Other hx: TIA 02/11/19-no residual effects, bradycardia with pacemaker, UTI History of Any Multi-Drug Resistant Organisms: None Reported Past Surgical History: Appendectomy, Hernia Repair, Hysterectomy, Pacemaker Additional Past Surgical History / Comment(s): 02/2019 Loop recorder, 05/14/19 pacemaker, abdominal hernia, bilateral cataract removal Past Anesthesia/Blood Transfusion Reactions: No Reported Reaction Type of Cardiac Device: Loop, Permanent Pacemaker Device Placement Date:: loop 02/2019, pacer 05/14/19 Smoking Status: Former smoker - Past Family History Mother Family Medical History: Cancer Additional Family Medical History / Comment(s): Brain cancer. Father Family Medical History: Cancer Additional Family Medical History / Comment(s): Liver cancer Medications and Allergies Home Medications Medication Instructions Recorded Confirmed Type Atorvastatin [Lipitor] 20 mg PO DAILY 05/09/19 08/23/19 History Apixaban [Eliquis] 2.5 mg PO BID 08/01/19 08/23/19 History Ipratropium/Albuterol Sulfate 1 puff INHALATION RT-QID 08/01/19 08/23/19 History [Combivent Respimat Inhaler] Aspirin 81 mg PO DAILY #30 chew 08/06/19 08/23/19 Rx Famotidine [Pepcid] 20 mg PO DAILY #15 tab 08/06/19 08/23/19 Rx Metoprolol Tartrate [Lopressor] 25 mg PO BID #60 tab 08/06/19 08/23/19 Rx predniSONE See Taper PO DIRECTED 08/23/19 08/23/19 History Allergies Allergy/AdvReac Type Severity Reaction Status Date / Time Sulfa (Sulfonamide Allergy Unknown Verified 08/23/19 10:47 Antibiotics) metformin AdvReac Unknown Diarrhea Verified 08/23/19 10:47 Physical Exam Vitals: Vital Signs Temp Pulse Resp BP Pulse Ox 08/24/19 08:00 98.5 F 84 16 122/68 96 08/24/19 03:13 97.5 F L 85 18 122/75 96 08/23/19 23:53 81 18 118/70 95 08/23/19 20:00 97.4 F L 82 18 120/72 93 L 08/23/19 15:20 97.5 F L 85 16 153/72 92 L 08/23/19 13:10 96.9 F L 94 16 131/72 97 Intake and Output 08/23/19 08/24/19 08/24/19 22:59 06:59 14:59 Intake Total 180 Balance 180 Intake: Oral 180 Other: Voiding Method Toilet # Voids 2 1 Weight 49.4 kg GENERAL EXAM: Alert, pleasant 84-year-old female patient, on room air, comfortable in no apparent distress. HEAD: Normocephalic. EYES: Normal reaction of pupils, equal size. NOSE: Clear with pink turbinates. THROAT: No erythema or exudates. NECK: No masses, no JVD. CHEST: No chest wall deformity. LUNGS: Equal air entry with faint crackles in the left lung base. CVS: S1 and S2 normal with no audible murmur, regular rhythm. ABDOMEN: No hepatosplenomegaly, normal bowel sounds, no guarding or rigidity. SPINE: No scoliosis or deformity SKIN: No rashes CENTRAL NERVOUS SYSTEM: No focal deficits, tone is normal in all 4 extremities. EXTREMITIES: There is no peripheral edema. No clubbing, no cyanosis. Peripheral pulses are intact. Results - Laboratory Findings CBC and BMP: 08/24/19 05:42 08/23/19 08:23 PT/INR, D-dimer PT 9.9 sec (9.0-12.0) 08/23/19 08:23 INR 0.9 (<1.2) 08/23/19 08:23 D-Dimer 0.46 mg/L FEU (<0.60) 08/23/19 08:23 Abnormal lab findings: Abnormal Labs 08/23/19 08/23/19 08/23/19 08:23 08:23 08:23 WBC RBC 2.47 L Hgb 7.1 L D Hct 23.5 L MCHC 30.2 L RDW 15.7 H Neutrophils # 7.9 H APTT 19.6 L BUN 35 H POC Glucose (mg/dL) Total Protein 5.4 L Albumin 3.0 L 08/23/19 08/23/19 08/24/19 17:47 20:03 05:42 WBC 12.5 H RBC 2.33 L 2.37 L Hgb 7.1 L 7.3 L Hct 22.7 L 23.1 L MCHC RDW 15.7 H Neutrophils # 9.8 H APTT BUN POC Glucose (mg/dL) 127 H Total Protein Albumin 08/24/19 08/24/19 06:22 11:38 WBC RBC Hgb Hct MCHC RDW Neutrophils # APTT BUN POC Glucose (mg/dL) 159 H 132 H Total Protein Albumin - Diagnostic Findings Chest x-ray: image reviewed Assessment and Plan Assessment: 1 Atypical left-sided chest discomfort of unclear etiology, acute coronary syndrome ruled out, atelectatic changes only on the x-ray 2 Recent admission for sepsis secondary to E. coli secondary to urinary tract infection 3 Left perihilar soft tissue measuring 3.4 x 2.1 anterior to the descending thoracic aorta. Suspicious for conglomerate adenopathy versus mass. Scheduled for a PET scan next week 4 50+ year pack per day smoking history, quit in February 2019 5 Moderate to severe mitral regurgitation 6 Moderate to severe pulmonary hypertension 7 Severe bradycardia requiring permanent pacemaker implantation May 2019 8 History of CVA 9 Hyperlipidemia Plan The patient was seen and evaluated by Dr. Anne. Chest x-ray and labs reviewed IV Solu-Medrol for possible pleuritic-type chest discomfort, left-sided atelectasis Initiated on nitrates per cardiology may consider cardiac catheterization PET scan to evaluate the left parahilar soft tissue mass, scheduled next Monday We'll continue to follow and make further recommendations based on her clinical status I, the cosigning physician, performed a history & physical examination of the patient. Lungs sounds with crackles in left lung base. Maintaining good O2 saturations in the 90s on room air. I discussed the assessment and plan of care with my nurse practitioner, Evangelina Dueñas. I attest to the above consultation as dictated by her. Time with Patient: Greater than 30
[2019-08-24] MEDS: HYDROcodone/APAP 5-325MG 1 EACH TAB PO PRN ×2 (14:43→20:10)
--- NOTE | 2019-08-24 15:21 | P.CNOR ---
History of Present Illness - [facility] Consult date: 08/24/19 History of present illness: This patient is an 84- year old female with a past medical history of COPD, TIA in February 2019, pacemaker placed in May 2019, and hyperlipidemia that presented to [facility] ED yesterday with complaints of left-sided chest discomfort. Patient was admitted under the care of internal medicine with a co nsult placed to orthopedic surgery for evaluation of back pain. Patient appears agitated during my exam, and most of the history is obtained by her family member that is bedside. The patient has been experiencing chest discomfort for "months" intermittently, but this pain has been worsening over the past few days, therefore she presented to the ED yesterday. She complains the pain is worse when her activity increases. The pain radiates into her left shoulder and back. She denies any falls or trauma. She states the back pain only occurs with her chest pain. She denies any prior history of back pain or shoulder pain. She denies pain with shoulder motion. She denies numbness or tingling of the upper or lower extremities. She denies bowel or bladder incontinence. She denies neck pain. The patient denies fevers, chills. At the time of my exam, the patient complains of chest pain. There are no additional complaints. Vital signs stable. Past Medical History Past Medical History: CVA/TIA, Hyperlipidemia Additional Past Medical History / Comment(s): Pt admitted to [facility] on 08/03/19 with bilateral pyelonephritis, mild R hydronephrosis, +blood cultures with EColi, sepsis, septicemia, SIRS, generalized weakness, L ear folliculitis, valvular disease, L perihilar soft tissue abnormality. Other hx: TIA 02/11/19- no residual effects, bradycardia with pacemaker, UTI History of Any Multi-Drug Resistant Organisms: None Reported Past Surgical History: Appendectomy, Hernia Repair, Hysterectomy, Pacemaker Additional Past Surgical History / Comment(s): 02/2019 Loop recorder, 05/14/19 pacemaker, abdominal hernia, bilateral cataract removal Past Anesthesia/Blood Transfusion Reactions: No Reported Reaction Type of Cardiac Device: Loop, Permanent Pacemaker Device Placement Date:: loop 02/2019, pacer 05/14/19 Smoking Status: Former smoker - Past Family History Mother Family Medical History: Cancer Additional Family Medical History / Comment(s): Brain cancer. Father Family Medical History: Cancer Additional Family Medical History / Comment(s): Liver cancer Medications and Allergies Home Medications Medication Instructions Recorded Confirmed Type Atorvastatin [Lipitor] 20 mg PO DAILY 05/09/19 08/23/19 History Apixaban [Eliquis] 2.5 mg PO BID 08/01/19 08/23/19 History Ipratropium/Albuterol Sulfate 1 puff INHALATION RT-QID 08/01/19 08/23/19 History [Combivent Respimat Inhaler] Aspirin 81 mg PO DAILY #30 chew 08/06/19 08/23/19 Rx Famotidine [Pepcid] 20 mg PO DAILY #15 tab 08/06/19 08/23/19 Rx Metoprolol Tartrate [Lopressor] 25 mg PO BID #60 tab 08/06/19 08/23/19 Rx predniSONE See Taper PO DIRECTED 08/23/19 08/23/19 History Allergies Allergy/AdvReac Type Severity Reaction Status Date / Time Sulfa (Sulfonamide Allergy Unknown Verified 08/23/19 10:47 Antibiotics) metformin AdvReac Unknown Diarrhea Verified 08/23/19 10:47 Physical Examination On examination, the patient is alert and orientated x3. She is in no apparent distress. Her family member is bedside. Her head appears normocephalic and atraumatic. Her breathing appears nonlabored. On inspection of the back and posterior shoulder, there is no ecchymosis, erythema, or skin discoloration. No open wounds or lacerations. There is no pain on palpation of the cervical spine, thoracic spine, or lumbar spine. There is no pain on palpation of the clavicle, AC joint, deltoid, or scapula. No pain with [id number] of the shoulder. Motor and sensory function appear to be intact of the bilateral upper extr emities. Vital signs stable. Results Lumbar spine x-ray 08/24/19: No acute fractures. - Labs Labs: Abnormal Lab Results - Last 24 Hours (Table) 08/23/19 08/23/19 08/24/19 Range/Units 17:47 20:03 05:42 WBC 12.5 H (3.8-10.6) k/uL RBC 2.33 L 2.37 L (3.80-5.40) m/uL Hgb 7.1 L 7.3 L (11.4-16.0) gm/dL Hct 22.7 L 23.1 L (34.0-46.0) % RDW 15.7 H (11.5-15.5) % Neutrophils # 9.8 H (1.3-7.7) k/uL POC Glucose (mg/dL) 127 H (75-99) mg/dL 08/24/19 08/24/19 Range/Units 06:22 11:38 WBC (3.8-10.6) k/uL RBC (3.80-5.40) m/uL Hgb (11.4-16.0) gm/dL Hct (34.0-46.0) % RDW (11.5-15.5) % Neutrophils # (1.3-7.7) k/uL POC Glucose (mg/dL) 159 H 132 H (75-99) mg/dL H & H 08/23/19 08/23/19 08/24/19 Range/Units 08:23 17:47 05:42 Hgb 7.1 L D 7.1 L 7.3 L (11.4-16.0) gm/dL Hct 23.5 L 22.7 L 23.1 L (34.0-46.0) % Coagulation 08/23/19 Range/Units 08:23 INR 0.9 (<1.2) Result Diagrams: 08/24/19 05:42 08/23/19 08:23 Assessment and Plan Assessment: Left-sided chest pain with radiation into the back and left shoulder. Plan: - I discussed the clinical and x-ray findings with the patient and her family member. We discussed obtaining x-rays of the shoulder as well as the thoracic and cervical spine to rule-out any bony abnormalities, although the patient would not like to pursue additional imaging of her back and shoulder at this time. She would like to speak with cardiology and internal medicine about resolving her current chest pain. If her back and shoulder pain fail to improve with the resolution of her chest pain, we can reconsider obtaining more imaging. The patient and her family member are agreeable to this plan. We will re-assess the patient if needed during this hospital stay, and she may follow-up on an outpatient basis. Thank you.
[2019-08-24 16:41] LABS: Glucose,Whole Blood 176 mg/dL (75-99)
[2019-08-24 20:05] LABS: Glucose,Whole Blood 249 mg/dL (75-99)
--- NOTE | 2019-08-24 20:09 | P.CONS ---
History of Present Illness - Reason for Consult Consult date: 08/24/19 Anemia Requesting physician: Nas Kulkarni - Chief Complaint Chest pain - History of Present Illness 84-year-old female with multiple medical comorbidities including prior TIA, hyperlipidemia, bradycardia status post pacemaker placement and COPD who presented to the hospital with complaints chest pain. The patient was recently admitted for bilateral pyelonephritis. Reports chest pain present for approximately 4 months described as sharp in nature, left sided, worse with movement and palpation and has woken her up from her sleep. Currently she is been seen by both the cardiology service with concern for possible unstable angina as well as the pulmonology service given her history of COPD. History taken from her daughter and son-in-law at bedside. The patient was found to have an acute fall in her hemoglobin which was approximately 10 on prior admission 7.1 on current admission. Hemoglobin has remained stable on repeat blood draw had 7.1 and 7.3 with normocytic indices. Iron endoscopic evaluations with either EGD or colonoscopy. She denies any nausea or vomiting. No history of anemia in the past per her recollection. No prior iron therapy reported. She denies any NSAID use. She reports that she was instructed to take Tylenol for pain. The patient is on anticoagulation therapy. She has not had any change in her bowel habits but there is question over dark stool. On her last admission she was found to have a low B12 on laboratory evaluation. Review of Systems REVIEW OF SYSTEMS: CONSTITUTIONAL: Denies any fevers, chills, weight change or fatigue. CARDIOVASCULAR: Denies any palpitations high or low blood pressures, but does report left-sided chest pain. RESPIRATORY: Denies any shortness of breath, hemoptysis or cough. GENITOURINARY: No dysuria or hematuria, recent admission for bilateral pyelonephritis. MUSCULOSKELETAL: No weakness reported. SKIN: Denies any new rashes or lesions, jaundice or pallor. PSYCHIATRIC: Denies any depression or anxiety. NEUROLOGY: Denies headache, denies any new focal deficits. EARS/NOSE/THROAT: No recent hearing change, congestion, nasal discharge or sore throat. EYES: No pain in eyes, discharge or change in vision. GASTROINTESTINAL: As per HPI. Past Medical History Past Medical History: CVA/TIA, Hyperlipidemia Additional Past Medical History / Comment(s): Pt admitted to [facility] on 08/03/19 with bilateral pyelonephritis, mild R hydronephrosis, +blood cultures with EColi, sepsis, septicemia, SIRS, generalized weakness, L ear folliculitis, valvular disease, L perihilar soft tissue abnormality. Other hx: TIA 02/11/19- no residual effects, bradycardia with pacemaker, UTI History of Any Multi-Drug Resistant Organisms: None Reported Past Surgical History: Appendectomy, Hernia Repair, Hysterectomy, Pacemaker Additional Past Surgical History / Comment(s): 02/2019 Loop recorder, 05/14/19 pacemaker, abdominal hernia, bilateral cataract removal Past Anesthesia/Blood Transfusion Reactions: No Reported Reaction Type of Cardiac Device: Loop, Permanent Pacemaker Device Placement Date:: loop 02/2019, pacer 05/14/19 Smoking Status: Former smoker - Past Family History Mother Family Medical History: Cancer Additional Family Medical History / Comment(s): Brain cancer. Father Family Medical History: Cancer Additional Family Medical History / Comment(s): Liver cancer Medications and Allergies Home Medications Medication Instructions Recorded Confirmed Type Atorvastatin [Lipitor] 20 mg PO DAILY 05/09/19 08/23/19 History Apixaban [Eliquis] 2.5 mg PO BID 08/01/19 08/23/19 History Ipratropium/Albuterol Sulfate 1 puff INHALATION RT-QID 08/01/19 08/23/19 History [Combivent Respimat Inhaler] Aspirin 81 mg PO DAILY #30 chew 08/06/19 08/23/19 Rx Famotidine [Pepcid] 20 mg PO DAILY #15 tab 08/06/19 08/23/19 Rx Metoprolol Tartrate [Lopressor] 25 mg PO BID #60 tab 08/06/19 08/23/19 Rx predniSONE See Taper PO DIRECTED 08/23/19 08/23/19 History Allergies Allergy/AdvReac Type Severity Reaction Status Date / Time Sulfa (Sulfonamide Allergy Unknown Verified 08/23/19 10:47 Antibiotics) metformin AdvReac Unknown Diarrhea Verified 08/23/19 10:47 Physical Exam Vitals: Vital Signs Temp Pulse Pulse Resp BP BP Pulse Ox 08/24/19 08:00 98.5 F 84 16 122/68 96 08/24/19 03:13 97.5 F L 85 18 122/75 96 08/23/19 23:53 81 18 118/70 95 08/23/19 20:00 97.4 F L 82 18 120/72 93 L 08/23/19 15:20 97.5 F L 85 16 153/72 92 L 08/23/19 13:10 96.9 F L 94 16 131/72 97 08/23/19 12:19 98 18 92/66 98 Intake and Output 08/23/19 08/24/19 08/24/19 22:59 06:59 14:59 Intake Total 180 Balance 180 Intake: Oral 180 Other: Voiding Method Toilet # Voids 2 1 Weight 49.4 kg On physical examination, patient appears comfortable in no apparent distress. HEAD: Normocephalic, atraumatic. EYES: No scleral icterus. No conjunctival injection. MOUTH: No lesions, tongue midline. NECK: Trachea midline, no gross abnormalities. CHEST: Decreased air entry in all lung lyle. HEART: S1-S2 appreciated. ABDOMEN: Soft, thin and nontender. Bowel sounds are positive. No organomegaly. No guarding or rigidity. EXTREMITIES: No pedal edema. SKIN: No rashes, no jaundice. NEUROLOGIC: Alert and oriented x3. No focal deficits. Results CBC & Chem 7: 08/24/19 05:42 08/23/19 08:23 Labs: Abnormal Lab Results - Last 24 Hours (Table) 08/23/19 08/23/19 08/24/19 Range/Units 17:47 20:03 05:42 WBC 12.5 H (3.8-10.6) k/uL RBC 2.33 L 2.37 L (3.80-5.40) m/uL Hgb 7.1 L 7.3 L (11.4-16.0) gm/dL Hct 22.7 L 23.1 L (34.0-46.0) % RDW 15.7 H (11.5-15.5) % Neutrophils # 9.8 H (1.3-7.7) k/uL POC Glucose (mg/dL) 127 H (75-99) mg/dL 08/24/19 08/24/19 Range/Units 06:22 11:38 WBC (3.8-10.6) k/uL RBC (3.80-5.40) m/uL Hgb (11.4-16.0) gm/dL Hct (34.0-46.0) % RDW (11.5-15.5) % Neutrophils # (1.3-7.7) k/uL POC Glucose (mg/dL) 159 H 132 H (75-99) mg/dL Chest x-ray: report reviewed (Multifocal subsegmental left-sided atelectasis on chest x-ray.) Assessment and Plan (1) Normocytic normochromic anemia Narrative/Plan: 84-year-old woman with multiple medical comorbidities who presented to the hospital with left-sided chest pain. Currently being evaluated by the cardiology service with plan for possible coronary angiogram pending clinical course. Patient was recently hospitalized with pyelonephritis. At that time patient's hemoglobin was in the 10 range and she was found to have a low vitamin B12 level. Currently on this admission hemoglobin has been stable at the 7 range acutely lower than previous admission at 7.1, 7.1 and 7.3 on repeat blood draw. Again indices are normocytic, normochromic. She denies any signs or symptoms of GI bleeding. Unclear etiology of drop in hemoglobin may be from blood loss in the setting of recent pyelonephritis, GI blood loss, nutritional deficiencies, or other etiology. She has never had endoscopic evaluation in the past. She denies any NSAID use but has been on anticoagulation therapy with Eliquis. Current Visit: Yes Status: Acute Code(s): D64.9 - ANEMIA, UNSPECIFIED SNOMED Code(s): 79804782 Plan: Supportive care Okay for diet Continue Protonix therapy Continue to monitor hemoglobin and hematocrit and transfuse as needed Continue evaluation by cardiology and pulmonology services Laboratory evaluation of anemia including reticulocyte count, vitamin B12, folate and iron studies ordered FOBT and urinalysis ordered to investigate for a source of bleeding We'll await evaluation for decision on endoscopic evaluation, however if the decision is to proceed with EGD and colonoscopy the patient would need clearance by both the pulmonology service and the cardiology service prior to the procedure Thank you for allowing us to participate in the care of the patient, we will continue to follow
--- NOTE | 2019-08-24 22:37 | P.PN ---
Progress Note - Text Progress Note Date: 08/24/19 Chief Complaint: Chest pain, dark stools History of presenting complaint: This is a pleasant 84-year-old patient of Dr. Meier. Patient was recently in the hospital. Patient then had presented with some shortness bit dry cough. fever. She was felt to have acute pyelonephritis. Seen by ID. And urology. Patient also found to have a lung mass possible. The due to follow-up with Dr. Herrera for the same. Patient also due for a cystoscopy as an outpatient. Also plan for outpatient stress test. Patient also treated for COPD exacerbation. For last 4 months patient been having chest wall pain. She describes the pain in different places at different times. Including below the rib cage. Sometimes the pain is on the left lateral chest wall. Sharp in nature. Sometimes patients is better laying on the left side. Patient sister been progressive with time. It is not worse with coughing or taking a deep breath. Also patient been noticing some dark stools. Patient's hemoglobin was 12.6 on [place] now under 7.1. It may be noted that the patient is on anticoagulation. Today-patient's pain has been going to different parts of the chest. Sometimes in the front sometimes on the lateral centimeters below the rib cage. Laying on for a few months. Seen by GI. Contemplating EGD colonoscopy. Review of systems: Was done for constitutional, cardiovascular, GI, pulmonary. relevant finding as above Active Medications Hydrocodone Bitart/Acetaminophen ([place] 5-325) 1 each PO Q4HR PRN PRN Reason: Pain Last Admin: 08/24/19 20:10 Dose: 1 each Documented by: Atorvastatin Calcium (Lipitor) 20 mg PO DAILY [facility] Last Admin: 08/24/19 08:41 Dose: 20 mg Documented by: Insulin Aspart (Novolog) 0 unit SQ [facility]; Protocol Last Admin: 08/24/19 20:11 Dose: 8 unit Documented by: Isosorbide Mononitrate (Imdur) 30 mg PO DAILY [facility] Last Admin: 08/24/19 12:48 Dose: Not Given Documented by: Methylprednisolone Sodium Succinate (Solu-Medrol) 40 mg IV Q12H [facility] Last Admin: 08/24/19 20:10 Dose: 40 mg Documented by: Metoprolol Tartrate (Lopressor) 25 mg PO BID [facility] Last Admin: 08/24/19 20:11 Dose: 25 mg Documented by: Nitroglycerin (Nitrostat) 0.4 mg SUBLINGUAL Q5M PRN PRN Reason: Chest Pain Pantoprazole Sodium (Protonix) 40 mg PO AC-BID [facility] Last Admin: 08/24/19 17:21 Dose: 40 mg Documented by: Physical examination: VITAL SIGNS: 98.5, 84, 16, 122/68, 96% room air GENERAL: Laying in bed. EYES: Pupils equal. Conjunctiva normal. HEENT: External appearance of nose and ears normal, oral cavity grossly normal. NECK: JVD not raised; masses not palpable. HEART: First and second heart sounds are normal; no edema. LUNGS: Respiratory rate increased, decreased breath sounds. ABDOMEN: Soft, nontender, liver spleen not palpable, no masses palpable. PSYCH: [Alert and oriented x3; mood and affect anxious. MUSCULOSKELETAL: Osteoarthritis in multiple joints CHEST wall: Patient has tenderness along the chest wall below the axilla and the left lateral chest wall INVESTIGATIONS, reviewed in the clinical context: Potassium 7.3 Previous testing White count 10.3 hemoglobin 7.1 platelets 379 potassium 4 creatinine 0.65 Patient's hemoglobin was 12.2 on August 01 and 10 on August 02. EKG tracing personally reviewed by me--left bundle-branch block Chest x-ray film personally reviewed by me--shows prominent pulmonary artery no obvious infiltrate Assessment: -Possible GI bleed in a patient who is on eliquis, with hemoglobin at 12.2 and on [place] went to drop down to 10 now currently 7.1. They may be a component of hospital-acquired anemia from repeated blood draws. Patient is having dark stools. 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 Herrera Plan: Had a very lengthy discussion with the patient's son and daughter and the patient. They have tried different modalities of pain. We'll also likely from narcotics for the pain that's bothering the patient. We'll start the patient on [place] 5- every 6 hours as needed. Did also tell them about acupuncture anastacia chi etc. In the meantime GI is planning to proceed with endoscopy colonoscopy. Total time spent today was about 40 minutes with over 25 minutes of discussion
[2019-08-25] MEDS: INSULIN ASPART (NovoLOG) 100 UNIT/ML VIAL SQ SCH ×3 (05:48→17:15)
[2019-08-25] MEDS: PANTOPRAZOLE 40 MG TABLET PO SCH ×2 (05:51→16:35)
[2019-08-25 05:56] LABS: Glucose,Whole Blood 128 mg/dL (75-99)
[2019-08-25 06:34] LABS: Reticulocyte % 7.6 % (0.5-2.0)
[2019-08-25] MEDS: HYDROcodone/APAP 5-325MG 1 EACH TAB PO PRN ×2 (07:07→16:35)
[2019-08-25 08:10] LABS: Appearance,Urine Cloudy (Clear); Bacteria,Urine Rare /hpf; Bilirubin,Urine Negative (Negative); Blood,Urine Negative (Negative); Color,Urine Yellow; Glucose,Urine (UA) Negative (Negative); Ketones,Urine Negative (Negative); Leukocyte Esterase,Urine Trace (Negative); Mucus,Urine Rare /hpf; Nitrite,Urine Negative (Negative); Protein,Urine Negative (Negative); RBC,Urine 1 /hpf (0-5); Specific Gravity,Urine 1.014 (1.001-1.035); Squamous Epithelial Cell,Urine 1 /hpf (0-4); Urobilinogen,Urine <2.0 mg/dL (<2.0); WBC,Urine 2 /hpf (0-5)
[2019-08-25] MEDS: methylPREDNISolone SOD SUCCI 40 MG/ML 1 ML VIAL IV SCH (08:18)
[2019-08-25] MEDS: ATORVASTATIN 20 MG TAB PO SCH (08:19)
[2019-08-25] MEDS: ISOSORBIDE MONONITRATE ER 30 MG TAB.ER.24H PO SCH (08:19)
[2019-08-25] MEDS: METOPROLOL TARTRATE 25 MG TAB PO SCH ×2 (08:19→23:01)
[2019-08-25 12:04] LABS: Glucose,Whole Blood 149 mg/dL (75-99)
--- NOTE | 2019-08-25 12:46 | P.PN ---
Subjective Progress Note Date: 08/25/19 Principal diagnosis: Chest pain This is a pleasant 82-year-old female patient with a past medical history significant for permanent pacemaker as well as chronic obstructive pulmonary disease as well as chronic anemia was admitted to the hospital with a chest discomfort. Acute coronary syndrome was ruled out. The patient was seen this morning, August 252019. Yesterday she was started on oral nitrate and since then she has been chest pain-free. Objective - Vital Signs Vital signs: Vital Signs Temp 98 F 08/25/19 04:00 Pulse 93 08/25/19 12:00 Resp 16 08/25/19 12:00 BP 123/69 08/25/19 12:00 Pulse Ox 94 L 08/25/19 12:00 Intake & Output 08/24/19 08/25/19 08/25/19 18:59 06:59 18:59 Intake Total 780 240 Output Total 320 250 Balance 780 -320 -10 Weight 49.4 kg Intake: Oral 780 240 Output: Urine 320 250 Other: Voiding Method Toilet Toilet # Voids 1 1 # Bowel Movements 1 - Constitutional General appearance: Present: no acute distress - Respiratory Respiratory: bilateral: diminished - Cardiovascular Rhythm: regular Heart sounds: normal: S1, S2 - Labs CBC & Chem 7: 08/24/19 05:42 08/23/19 08:23 Labs: Abnormal Lab Results - Last 24 Hours (Table) 08/24/19 08/24/19 08/25/19 Range/Units 16:39 20:04 05:42 Retic Count 7.6 H (0.5-2.0) % POC Glucose (mg/dL) 176 H 249 H (75-99) mg/dL Urine Appearance (Clear) Ur Leukocyte Esterase (Negative) Urine Bacteria (None) /hpf Urine Mucus (None) /hpf 08/25/19 08/25/19 08/25/19 Range/Units 05:45 07:00 12:02 Retic Count (0.5-2.0) % POC Glucose (mg/dL) 128 H 149 H (75-99) mg/dL Urine Appearance Cloudy H (Clear) Ur Leukocyte Esterase Trace H (Negative) Urine Bacteria Rare H (None) /hpf Urine Mucus Rare H (None) /hpf Assessment and Plan Assessment: Assessment #1 chest discomfort which has resolved #2 chronic anemia #3 status post permanent pacemaker #4 history of smoking Plan #1 the patient is chest pain-free #2 continue oral nitrate #3 consider coronary angiogram if she started experiencing chest pain again
[2019-08-25] MEDS ORDERED: METOCLOPRAMIDE 5 MG/ML 2 ML VIAL IVP STA (13:21)
[2019-08-25] MEDS ORDERED: ONDANSETRON 4 MG/2 ML VIAL IVP PRN (13:24)
--- NOTE | 2019-08-25 14:11 | P.PN ---
Subjective Progress Note Date: 08/25/19 Principal diagnosis: Atypical left-sided chest discomfort of unclear etiology, acute coronary syndrome ruled out This is a very pleasant 84-year-old female patient who follows with Dr. Meier as her primary care provider. 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 She had was hospitalized in July 2019 after she developed increased weakness and was in bed for nearly 3 days this week according to her daughter. Chest x-ray revealed COPD but no acute pulmonary process. There is a stable pleural parenchymal opacity and left lung base representing most likely scarring. The patient does have a 60+ year smoking history and quit February 2019. She had not been seen by a higher education administrator in the past. She has a albuterol inhaler that she infrequently uses. CT angiogram was performed that revealed no evidence of pulmonary emboli. There was however noted soft tissue density in the left infrahilar region anterior to the descending thoracic aorta measuring 3.4 x 2.1 cm. This could reflect conglomerate adenopathy however mass is not excluded. She been seen and evaluated by Dr. Anne at that time. The plan was for a follow-up computed tomography scan of the chest versus possible PET scan in the outpatient setting. She came back to the emergency room yesterday with ongoing complaints of left-sided chest discomfort. Chest x-ray did reveal multifocal subsegmental left-sided atelectasis. No gross acute displaced rib fractures on the left. X-ray of the lumbar spine revealed no acute osseous lesion. There is moderate degenerative change. Diffuse osteopenia likely on the basis of osteoporosis. White count 9.2. Hemoglobin 7.3. Sodium 138. Potassium 4.0. Creatinine 0.65. Troponin negative 3. She is seen today in consultation on the selective care unit. She is currently awake and alert in no acute distress. Denies any left-sided chest discomfort at rest. Feels she does have some worsening pain while up moving. Her family is at the bedside states that also woke her up at night while sleeping. She had been seen and evaluated by cardiology who initiated Imdur. She is also on IV Solu-Medrol. She is maintaining O2 saturations in the 90s on room air. She's been afebrile. Hemodynamically stable. The patient is seen today 08/25/2019 in follow-up on this selective care unit. She is currently resting comfortably in bed. Awake and alert in no acute distress. She was initiated on nitrate yesterday and has been chest pain free. No worsening shortness of breath, cough or congestion. Maintaining O2 saturations in the mid 90s on room air. Afebrile. Hemodynamically stable. Last hemoglobin 7.3. Objective - Vital Signs Vital signs: Vital Signs Temp 98 F 08/25/19 04:00 Pulse 93 08/25/19 12:00 Resp 16 08/25/19 12:00 BP 123/69 08/25/19 12:00 Pulse Ox 94 L 08/25/19 12:00 Intake & Output 08/24/19 08/25/19 08/25/19 18:59 06:59 18:59 Intake Total 780 240 Output Total 320 250 Balance 780 -320 -10 Weight 49.4 kg Intake: Oral 780 240 Output: Urine 320 250 Other: Voiding Method Toilet Toilet # Voids 1 1 # Bowel Movements 1 - Exam GENERAL EXAM: Alert, pleasant 84-year-old female patient, on room air, comfortable in no apparent distress. HEAD: Normocephalic. EYES: Normal reaction of pupils, equal size. NOSE: Clear with pink turbinates. THROAT: No erythema or exudates. NECK: No masses, no JVD. CHEST: No chest wall deformity. LUNGS: Equal air entry with faint crackles in the left lung base. CVS: S1 and S2 normal with no audible murmur, regular rhythm. ABDOMEN: No hepatosplenomegaly, normal bowel sounds, no guarding or rigidity. SPINE: No scoliosis or deformity SKIN: No rashes CENTRAL NERVOUS SYSTEM: No focal deficits, tone is normal in all 4 extremities. EXTREMITIES: There is no peripheral edema. No clubbing, no cyanosis. Peripheral pulses are intact. - Labs CBC & Chem 7: 08/24/19 05:42 08/23/19 08:23 Labs: Abnormal Lab Results - Last 24 Hours (Table) 08/24/19 08/24/19 08/25/19 Range/Units 16:39 20:04 05:42 Retic Count 7.6 H (0.5-2.0) % POC Glucose (mg/dL) 176 H 249 H (75-99) mg/dL Urine Appearance (Clear) Ur Leukocyte Esterase (Negative) Urine Bacteria (None) /hpf Urine Mucus (None) /hpf 08/25/19 08/25/19 08/25/19 Range/Units 05:45 07:00 12:02 Retic Count (0.5-2.0) % POC Glucose (mg/dL) 128 H 149 H (75-99) mg/dL Urine Appearance Cloudy H (Clear) Ur Leukocyte Esterase Trace H (Negative) Urine Bacteria Rare H (None) /hpf Urine Mucus Rare H (None) /hpf Assessment and Plan Assessment: 1 Atypical left-sided chest discomfort of unclear etiology, acute coronary syndrome ruled out, improved on nitrates 2 Recent admission for sepsis secondary to E. coli secondary to urinary tract infection 3 Left perihilar soft tissue measuring 3.4 x 2.1 anterior to the descending thoracic aorta. Suspicious for conglomerate adenopathy versus mass. 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 Anne. She has been chest pain-free the past 24 hours Discontinue IV Solu-Medrol, initiate Medrol Dosepak Continued anemia, may require EGD/colonoscopy Initiated on nitrates per cardiology may consider cardiac catheterization PET scan to evaluate the left parahilar soft tissue mass, scheduled next Monday We'll continue to follow and make further recommendations based on her clinical status I, the cosigning physician, performed a history & physical examination of the patient. Lungs sounds with crackles in left lung base. Maintaining good O2 saturations in the 90s on room air. I discussed the assessment and plan of care with my nurse practitioner, Evangelina Dueñas. I attest to the above consultation as dictated by her.
[2019-08-25] MEDS ORDERED: PEG 3350-NA SULF,BICARB,CL/KCL 4,000 ML BOTTLE PO ONE (16:00)
[2019-08-25] MEDS ORDERED: BISACODYL 5 MG TABLET.DR PO ONE ×2 (16:45→17:00)
[2019-08-25 16:50] LABS: Glucose,Whole Blood 124 mg/dL (75-99)
--- NOTE | 2019-08-25 18:58 | P.PN ---
Subjective Progress Note Date: 08/25/19 Principal diagnosis: Normocytic normochromic anemia Patient is seen lying in bed denying any nausea or vomiting. No signs or symptoms of GI bleeding reported. Tolerating a diet. Objective - Vital Signs Vital signs: Vital Signs Temp 98 F 08/25/19 04:00 Pulse 87 08/25/19 08:00 Resp 16 08/25/19 08:00 BP 133/67 08/25/19 08:00 Pulse Ox 94 L 08/25/19 08:00 Intake & Output 08/24/19 08/25/19 08/25/19 18:59 06:59 18:59 Intake Total 780 240 Output Total 320 250 Balance 780 -320 -10 Weight 49.4 kg Intake: Oral 780 240 Output: Urine 320 250 Other: Voiding Method Toilet Toilet # Voids 1 1 # Bowel Movements 1 - Exam On physical examination, patient appears comfortable in no apparent distress. HEAD: Normocephalic, atraumatic. EYES: No scleral icterus. No conjunctival injection. MOUTH: No lesions, tongue midline. NECK: Trachea midline, no gross abnormalities. ABDOMEN: Soft, nontender to palpation. Bowel sounds are positive. No organomegaly. No guarding or rigidity. EXTREMITIES: No pedal edema. SKIN: No rashes, no jaundice. NEUROLOGIC: Alert and oriented x3. No focal deficits. - Labs CBC & Chem 7: 08/24/19 05:42 08/23/19 08:23 Labs: Abnormal Lab Results - Last 24 Hours (Table) 08/24/19 08/24/19 08/24/19 Range/Units 11:38 16:39 20:04 Retic Count (0.5-2.0) % POC Glucose (mg/dL) 132 H 176 H 249 H (75-99) mg/dL Urine Appearance (Clear) Ur Leukocyte Esterase (Negative) Urine Bacteria (None) /hpf Urine Mucus (None) /hpf 08/25/19 08/25/19 08/25/19 Range/Units 05:42 05:45 07:00 Retic Count 7.6 H (0.5-2.0) % POC Glucose (mg/dL) 128 H (75-99) mg/dL Urine Appearance Cloudy H (Clear) Ur Leukocyte Esterase Trace H (Negative) Urine Bacteria Rare H (None) /hpf Urine Mucus Rare H (None) /hpf Assessment and Plan (1) Normocytic normochromic anemia Narrative/Plan: 84-year-old woman with multiple medical comorbidities who presented to the hospital with left-sided chest pain. Currently being evaluated by the cardiology service with plan for possible coronary angiogram pending clinical course. Patient was recently hospitalized with pyelonephritis. At that time patient's hemoglobin was in the 10 range and she was found to have a low vitamin B12 level. Currently on this admission hemoglobin has been stable at the 7 range acutely lower than previous admission at 7.1, 7.1 and 7.3 on repeat blood draw. Again indices are normocytic, normochromic. She denies any signs or symptoms of GI bleeding. Unclear etiology of drop in hemoglobin may be from blood loss in the setting of recent pyelonephritis, GI blood loss, nutritional deficiencies, or other etiology. She has never had endoscopic evaluation in the past. She denies any NSAID use but has been on anticoagulation therapy with Eliquis. Current Visit: Yes Status: Acute Code(s): D64.9 - ANEMIA, UNSPECIFIED SNOMED Code(s): 04187233 Plan: Supportive care Okay for diet Continue Protonix therapy Continue to hold anticoagulation therapy Continue to monitor hemoglobin and hematocrit and transfuse as needed Appreciate evaluation by cardiology and pulmonology services Laboratory evaluation of anemia including vitamin B12, folate and iron studies pending Reticulocyte count appropriately elevated At this time we'll plan on EGD and colonoscopy for further evaluation tomorrow, the procedure and all the risks associated with it have been discussed at length with the patient and her family members including but not limited to bleeding, perforation, infection, missed pathology and all of her questions have been answered to their satisfaction Case discussed with the primary team and the patient has been cleared by the internal medicine service as well as cardiology to proceed with the procedure Thank you for allowing us to participate in the care of the patient, we will continue to follow
[2019-08-25 20:06] LABS: Glucose,Whole Blood 120 mg/dL (75-99)
--- NOTE | 2019-08-25 20:17 | P.PN ---
Progress Note - Text Progress Note Date: 08/25/19 Chief Complaint: Chest pain, dark stools History of presenting complaint: This is a pleasant 84-year-old patient of Dr. Meier. Patient was recently in the hospital. Patient then had presented with some shortness bit dry cough. fever. She was felt to have acute pyelonephritis. Seen by ID. And urology. Patient also found to have a lung mass possible. The due to follow-up with Dr. Herrera for the same. Patient also due for a cystoscopy as an outpatient. Also plan for outpatient stress test. Patient also treated for COPD exacerbation. For last 4 months patient been having chest wall pain. She describes the pain in different places at different times. Including below the rib cage. Sometimes the pain is on the left lateral chest wall. Sharp in nature. Sometimes patients is better laying on the left side. Patient sister been progressive with time. It is not worse with coughing or taking a deep breath. Also patient been noticing some dark stools. Patient's hemoglobin was 12.6 on [place] now under 7.1. It may be noted that the patient is on anticoagulation. Today-patient's chest pain felt to be musculoskeletal much better with [place]. Overall feeling better. Son and daughter the bedside.. Review of systems: Was done for constitutional, cardiovascular, GI, pulmonary. relevant finding as above Active Medications Hydrocodone Bitart/Acetaminophen ([place] 5-325) 1 each PO Q4HR PRN PRN Reason: Pain Last Admin: 08/25/19 16:35 Dose: 1 each Documented by: Atorvastatin Calcium (Lipitor) 20 mg PO DAILY [facility] Last Admin: 08/25/19 08:19 Dose: 20 mg Documented by: Insulin Aspart (Novolog) 0 unit SQ [facility]; Protocol Last Admin: 08/25/19 17:15 Dose: Not Given Documented by: Isosorbide Mononitrate (Imdur) 30 mg PO DAILY [facility] Last Admin: 08/25/19 08:19 Dose: 30 mg Documented by: Methylprednisolone (Medrol Dose Pack) 24 mg PO DAILY [facility]; Taper Stop: 09/01/19 08:59 Metoprolol Tartrate (Lopressor) 25 mg PO BID [facility] Last Admin: 08/25/19 08:19 Dose: 25 mg Documented by: Nitroglycerin (Nitrostat) 0.4 mg SUBLINGUAL Q5M PRN PRN Reason: Chest Pain Ondansetron HCl (Zofran) 4 mg IVP Q6HR PRN PRN Reason: Nausea And Vomiting Pantoprazole Sodium (Protonix) 40 mg PO AC-BID [facility] Last Admin: 08/25/19 16:35 Dose: 40 mg Documented by: Physical examination: VITAL SIGNS: 98, 85, 18, 155/68, 98% room air GENERAL: Laying in bed. Comfortable EYES: Pupils equal. Conjunctiva normal. HEENT: External appearance of nose and ears normal, oral cavity grossly normal. NECK: JVD not raised; masses not palpable. HEART: First and second heart sounds are normal; no edema. LUNGS: Respiratory rate increased, decreased breath sounds. ABDOMEN: Soft, nontender, liver spleen not palpable, no masses palpable. PSYCH: [Alert and oriented x3; mood and affect anxious. MUSCULOSKELETAL: Osteoarthritis in multiple joints CHEST wall: Patient has tenderness along the chest wall below the axilla and the left lateral chest wall INVESTIGATIONS, reviewed in the clinical context: Hemoglobin 7.3 Previous testing White count 10.3 hemoglobin 7.1 platelets 379 potassium 4 creatinine 0.65 Patient's hemoglobin was 12.2 on August 01 and 10 on August 02. EKG tracing personally reviewed by me--left bundle-branch block Chest x-ray film personally reviewed by me--shows prominent pulmonary artery no obvious infiltrate Assessment: -Possible GI bleed in a patient who is on eliquis, with hemoglobin at 12.2 and on [place] went to drop down to 10 now currently 7.1. They may be a component of hospital-acquired anemia from repeated blood draws. Patient is having dark stools. 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 Herrera Plan: Discussed the Dr. Bedolla from endoscopy.. Okay to proceed with endoscopy. I discussed this with Dr. Joy from GI. He will be arranging EGD colonoscopy for tomorrow. Other medications to continue. Discussed with the patient and family. Total time spent today was about 40 minutes with over 25 minutes in discussion.
[2019-08-26 06:26] LABS: Glucose,Whole Blood 84 mg/dL (75-99)
[2019-08-26] MEDS: INSULIN ASPART (NovoLOG) 100 UNIT/ML VIAL SQ SCH ×2 (07:54→12:17)
[2019-08-26 08:02] VITALS: BP 117/69; PULSE 79; RESP 16; TEMP 97
[2019-08-26] MEDS ORDERED: LIDOCAINE 1% INJ 10MG/ML (20 ML MDV) ONE (08:15)
[2019-08-26] MEDS ORDERED: PROPOFOL 10 MG/ML 20 ML VIAL IV ONE (08:15)
[2019-08-26] MEDS ORDERED: LACTATED RINGERS 1,000 ML IV ONE (08:33)
[2019-08-26] MEDS ORDERED: methylPREDNISolone 4 MG TAB TAPER PO SCH (09:00)
[2019-08-26] MEDS: PANTOPRAZOLE 40 MG TABLET PO SCH (09:03)
[2019-08-26] MEDS: ISOSORBIDE MONONITRATE ER 30 MG TAB.ER.24H PO SCH (09:03)
[2019-08-26] MEDS: METOPROLOL TARTRATE 25 MG TAB PO SCH (09:03)
[2019-08-26] MEDS: ATORVASTATIN 20 MG TAB PO SCH (09:04)
--- NOTE | 2019-08-26 09:18 | P.PCN ---
Date of Procedure: 08/26/19 Description of Procedure: Brief history: 84-year-old woman with multiple medical comorbidities who presented to the hospital with left-sided chest pain. Currently being evaluated by the cardiology service with plan for possible coronary angiogram pending clinical course. Patient was recently hospitalized with pyelonephritis. At that time patient's hemoglobin was in the 10 range and she was found to have a low vitamin B12 level. Currently on this admission hemoglobin has been stable at the 7 range acutely lower than previous admission at 7.1, 7.1 and 7.3 on repeat blood draw. Again indices are normocytic, normochromic. She denies any signs or symptoms of GI bleeding. Unclear etiology of drop in hemoglobin may be from blood loss in the setting of recent pyelonephritis, GI blood loss, nutritional deficiencies, or other etiology. She has never had endoscopic evaluation in the past. She denies any NSAID use but has been on anticoagulation therapy with Eliquis. Procedure performed: Esophagogastroduodenoscopy with biopsy Colonoscopy aborted/failed secondary to poor prep Estimated blood loss: Minimal. Preoperative diagnosis: Anemia Anesthesia: MAC Procedure: After informed consent was obtained from the patient was brought into the endoscopy unit and IV sedation was administered by anesthesia under continuous monitoring. Initially upper endoscopy was done. The Olympus GF 190 video endoscope was inserted into the mouth and esophagus intubated without any difficulty and was gradually advanced into the stomach and duodenum and carefully examined. The bulb and second part of the duodenum appeared normal, with biopsies taken. The scope was then withdrawn into the stomach adequately insufflated with air and upon careful examination the antrum and body, cardia and fundus appeared normal, except for some mild scattered erythema in the antrum and body suggestive of mild gastritis with biopsies taken. The scope was then withdrawn into the esophagus. The GE junction was located at 35 cm to the incisors. It appeared regular with no erythema erosions or ulcerations. Rest of the esophagus appeared normal. Patient tolerated the procedure well. At this time the patient continued to remain sedation. Initial digital rectal examination was normal. Olympus CF 190 video colonoscope was then inserted into the rectum and gradually advanced however a large amount of liquid and solid stool was noted throughout the rectum and the procedure had to be aborted secondary to poor prep. The patient tolerated the procedure well. Impression: 1. Mild gastritis antrum body, biopsied. Duodenal biopsies. 2. Poor prep, colonoscopy aborted/failed. Recommendations: Findings of this examination were discussed with the patient as well as her family. Okay to resume diet. Okay to resume medications. Await pathology from biopsies. If patient wishes can repeat colonoscopy in the outpatient setting with a 2 day prep.
[2019-08-26] MEDS: HYDROcodone/APAP 5-325MG 1 EACH TAB PO PRN (09:21)
[2019-08-26 11:02] LABS: % Iron Saturation 3.29 (12.00-45.00); Ferritin 13.7 ng/mL (10.0-291.0); Folate, Serum 12.4 ng/mL
--- NOTE | 2019-08-26 15:18 | P.PN ---
Subjective Progress Note Date: 08/26/19 Principal diagnosis: atypical of left-sided chest discomfort of unclear etiology, acute ACS has been ruled out This is a very pleasant 84-year-old female patient who follows with Dr. Meier as her primary care provider. 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 She had was hospitalized in July 2019 after she developed increased weakness and was in bed for nearly 3 days this week according to her daughter. Chest x-ray revealed COPD but no acute pulmonary process. There is a stable pleural parenchymal opacity and left lung base representing most likely scarring. The patient does have a 60+ year smoking history and quit February 2019. She had not been seen by a sketch maker in the past. She has a albuterol inhaler that she infrequently uses. CT angiogram was performed that revealed no evidence of pulmonary emboli. There was however noted soft tissue density in the left infrahilar region anterior to the descending thoracic aorta measuring 3.4 x 2.1 cm. This could reflect conglomerate adenopathy however mass is not excluded. She been seen and evaluated by Dr. Anne at that time. The plan was for a follow-up computed tomography scan of the chest versus possible PET scan in the outpatient setting. She came back to the emergency room yesterday with ongoing complaints of left-sided chest discomfort. Chest x-ray did reveal multifocal subsegmental left-sided atelectasis. No gross acute displaced rib fractures on the left. X-ray of the lumbar spine revealed no acute osseous lesion. There is moderate degenerative change. Diffuse osteopenia likely on the basis of osteoporosis. White count 9.2. Hemoglobin 7.3. Sodium 138. Potassium 4.0. Creatinine 0.65. Troponin negative 3. She is seen today in consultation on the selective care unit. She is currently awake and alert in no acute distress. Denies any left-sided chest discomfort at rest. Feels she does have some worsening pain while up moving. Her family is at the bedside states that also woke her up at night while sleeping. She had been seen and evaluated by cardiology who initiated Imdur. She is also on IV Solu-Medrol. She is maintaining O2 saturations in the 90s on room air. She's been afebrile. Hemodynamically stable. The patient is seen today 08/25/2019 in follow-up on this selective care unit. She is currently resting comfortably in bed. Awake and alert in no acute distress. She was initiated on nitrate yesterday and has been chest pain free. No worsening shortness of breath, cough or congestion. Maintaining O2 saturations in the mid 90s on room air. Afebrile. Hemodynamically stable. Last hemoglobin 7.3. On 08/26/2019 patient seen in follow-up on selective care unit, patient is awake and alert, in no acute distress, denies any shortness of breath denies any chest pain, no active bleeding, today she underwent EGD with biopsy, but colonoscopy was aborted related to poor prep. EGD revealed mild gastritis in the antrum body which was biopsied and duodenal biopsies were taken no active bleeding, no new labs today, hemodynamically remained stable. Patient decided not to proceed with a PET scan and this Monday and apparently PET scan was canceled per patient's request, otherwise no acute events, and patient is being discharged home today Objective - Vital Signs Vital signs: Vital Signs Temp 97 F L 08/26/19 08:00 Pulse 79 08/26/19 08:00 Resp 16 08/26/19 11:23 BP 117/69 08/26/19 08:00 Pulse Ox 95 08/26/19 08:00 Intake & Output 08/25/19 08/26/19 08/26/19 18:59 06:59 18:59 Intake Total 660 Output Total 250 2040 Balance 410 -2040 Weight 49.1 kg Intake: Oral 660 Output: Urine 250 Stool 2040 Other: Voiding Method Toilet Toilet Toilet # Voids 1 1 1 # Bowel Movements 1 1 - Exam GENERAL EXAM: Alert, very pleasant, 84-year-old on room air, with a pulse ox of 95% comfortable in no apparent distress. HEAD: Normocephalic/atraumatic. EYES: Normal reaction of pupils, equal size. Conjunctiva pink, sclera white. NOSE: Clear with pink turbinates. THROAT: No erythema or exudates. NECK: No masses, no JVD, no thyroid enlargement, no adenopathy. CHEST: No chest wall deformity. Symmetrical expansion. LUNGS: Equal air entry with no crackles, wheeze, rhonchi or dullness. CVS: Regular rate and rhythm, normal S1 and S2, no gallops, no murmurs, no rubs ABDOMEN: Soft, nontender. No hepatosplenomegaly, normal bowel sounds, no guarding or rigidity. EXTREMITIES: No clubbing, no edema, no cyanosis, 2+ pulses and upper and lower extremities. MUSCULOSKELETAL: Muscle strength and tone normal. SPINE: No scoliosis or deformity SKIN: No rashes CENTRAL NERVOUS SYSTEM: Alert and oriented -3. No focal deficits, tone is normal in all 4 extremities. PSYCHIATRIC: Alert and oriented -3. Appropriate affect. Intact judgment and insight. - Labs CBC & Chem 7: 08/24/19 05:42 08/23/19 08:23 Labs: Abnormal Lab Results - Last 24 Hours (Table) 08/25/19 08/25/19 08/25/19 Range/Units 05:42 16:48 20:04 POC Glucose (mg/dL) 124 H 120 H (75-99) mg/dL Iron 11 L (50-170) ug/dL % Saturation 3.29 L (12.00-45.00) Assessment and Plan Plan: Assessment: 1 Atypical left-sided chest discomfort of unclear etiology, acute coronary syndrome ruled out, improved on nitrates 2 Recent admission for sepsis secondary to E. coli secondary to urinary tract infection 3 Left perihilar soft tissue measuring 3.4 x 2.1 anterior to the descending thoracic aorta. Suspicious for conglomerate adenopathy versus mass. Patient decided to not proceed with outpatient PET scan 4 50+ year pack per day smoking history, quit in February 2019 5 Moderate to severe mitral regurgitation 6 Moderate to severe pulmonary hypertension 7 Severe bradycardia requiring permanent pacemaker implantation May 2019 8 History of CVA 9 Hyperlipidemia 10 Anemia of unclear etiology, GI service is following Plan: From pulmonary perspective patient remains clinical stable, no acute complaints, is being discharged home today, however he decided not to proceed with outpatient PET scan and she states she is just too worn out. Patient was told if she changes her mind to have her primary care physician reorder the PET scan and follow-up with the pulmonary service I performed a history & physical examination of the patient and discussed their management with my nurse practitioner, Judith Mims. I reviewed the nurse practitioner's note and agree with the documented findings and plan of care. Lung sounds are positive for diminished breath sounds. The findings and the impression was discussed with the patient. I attest to the documentation by the nurse practitioner. Time with Patient: Less than 30
--- NOTE | 2019-08-27 00:08 | P.DS ---
Providers Date of admission: 08/23/19 10:36 Expected date of discharge: 08/26/19 Attending physician: Nas Kulkarni Consults: 08/23/19 10:36 Consult Physician Urgent Consulting Provider: [facility] Consult Reason/Comments: Unstable angina Do you want consulting provider notified?: Yes 08/23/19 15:28 Consult Physician Urgent Consulting Provider: Altaf Anne Consult Reason/Comments: COPD Do you want consulting provider notified?: Yes 08/23/19 20:28 Consult Physician Routine Consulting Provider: Mitchel Liu Consult Reason/Comments: GI bleed Do you want consulting provider notified?: Yes 08/24/19 08:44 Consult Physician Stat Consulting Provider: Lakhwinder Stone Consult Reason/Comments: back pain Do you want consulting provider notified?: Yes Primary care physician: Josue Meier [facility] Course: Chief Complaint: Chest pain, dark stools Hospital course: This is a pleasant 84-year-old patient of Dr. Meier. Patient was recently in the hospital. Patient then had presented with some shortness bit dry cough. fever. She was felt to have acute pyelonephritis. Seen by ID. And urology. Patient also found to have a lung mass possible. The due to follow-up with Dr. Herrera for the same. Patient also due for a cystoscopy as an outpatient. Also plan for outpatient stress test. Patient also treated for COPD exacerbation. For last 4 months patient been having chest wall pain. She describes the pain in different places at different times. Including below the rib cage. Sometimes the pain is on the left lateral chest wall. Sharp in nature. Sometimes patients is better laying on the left side. Patient sister been progressive with time. It is not worse with coughing or taking a deep breath. Also patient been noticing some dark stools. Patient's hemoglobin was 12.6 on Bryn now under 7.1. It may be noted that the patient is on anticoagulation. EGD-unremarkable. Colonoscopy prep was not good enough. Patient has been tried on different medications for musculoskeletal pain. Hence narcotics are being tried. This was discussed in detail with the patient's family. Possible cardiac cath as an outpatient. Today-patient comfortable. Skin to cough. Care was discussed with the family the bedside. Questions were answered. Discussion and discharge planning more than 35 minutes Consultation: Dr. Joy from GI Dr. Aguirre from general surgery Dr. Herrera from pulmonary Dr. Bedolla from cardiology Physical examination: VITAL SIGNS: 97, 79, 16, 11 7/69, 95% on room air GENERAL: Laying in bed. Comfortable EYES: Pupils equal. Conjunctiva normal. HEENT: External appearance of nose and ears normal, oral cavity grossly normal. NECK: JVD not raised; masses not palpable. HEART: First and second heart sounds are normal; no edema. LUNGS: Respiratory rate increased, decreased breath sounds. ABDOMEN: Soft, nontender, liver spleen not palpable, no masses palpable. PSYCH: [Alert and oriented x3; mood and affect anxious. MUSCULOSKELETAL: Osteoarthritis in multiple joints CHEST wall: Patient has tenderness along the chest wall below the axilla and the left lateral chest wall INVESTIGATIONS, reviewed in the clinical context: Hemoglobin 7.3 Previous testing White count 10.3 hemoglobin 7.1 platelets 379 potassium 4 creatinine 0.65 Patient's hemoglobin was 12.2 on August 01 and 10 on August 02. EKG tracing personally reviewed by me--left bundle-branch block Chest x-ray film personally reviewed by me--shows prominent pulmonary artery no obvious infiltrate Assessment: -Possible GI bleed in a patient who is on eliquis, with hemoglobin at 12.2 and on Bryn went to drop down to 10 now currently 7.1. They may be a component of hospital-acquired anemia from repeated blood draws. And gastritis -COPD in an ex-smoker -Musculoskeletal pain in the chest wall which is reproducible -Permanent pacemaker -Hyperlipidemia -Recent admission for pyelonephritis -Moderate to severe mitral regurgitation, moderate to severe tricuspid regurgitation, nontraumatic -Moderate to severe pulmonary hypertension, secondary -Hypokinetic left ventricular ibarra to rule out underlying ischemia with stress test. Possible outpatient cardiac cath. -Left lung mass being followed up by Dr. Herrera. Patient had a PET scan scheduled for this surgery. Has decided, to get it canceled. Disposition: Home Plan - Discharge Summary Discharge Rx Participant: No New Discharge Prescriptions: New Isosorbide Mononitrate ER [Imdur] 30 mg PO DAILY #30 tab.er.24h HYDROcodone/APAP 5-325MG [[place] 5-325] 1 each PO Q6H PRN #30 tab PRN Reason: Pain Continue Atorvastatin [Lipitor] 20 mg PO DAILY Ipratropium/Albuterol Sulfate [Combivent Respimat Inhaler] 1 puff INHALATION RT-QID Apixaban [Eliquis] 2.5 mg PO BID Metoprolol Tartrate [Lopressor] 25 mg PO BID #60 tab Famotidine [Pepcid] 20 mg PO DAILY #15 tab Aspirin 81 mg PO DAILY #30 chew predniSONE See Taper PO DIRECTED Discharge Medication List Atorvastatin [Lipitor] 20 mg PO DAILY 05/09/19 [History] Apixaban [Eliquis] 2.5 mg PO BID 08/01/19 [History] Ipratropium/Albuterol Sulfate [Combivent Respimat Inhaler] 1 puff INHALATION RT- QID 08/01/19 [History] Aspirin 81 mg PO DAILY #30 chew 08/06/19 [Rx] Famotidine [Pepcid] 20 mg PO DAILY #15 tab 08/06/19 [Rx] Metoprolol Tartrate [Lopressor] 25 mg PO BID #60 tab 08/06/19 [Rx] predniSONE See Taper PO DIRECTED 08/23/19 [History] HYDROcodone/APAP 5-325MG [[place] 5-325] 1 each PO Q6H PRN #30 tab 08/26/19 [Rx] Isosorbide Mononitrate ER [Imdur] 30 mg PO DAILY #30 tab.er.24h 08/26/19 [Rx] Follow up Appointment(s)/Referral(s): Altaf Anne MD [STAFF PHYSICIAN] - 09/10/19 2:30 pm (Monday) Beth Huertas NPC [Nurse Practitioner] - 09/04/19 1:30 pm (Monday Cardiology ) Conner Sun PAC [PHYSICIAN PAINT SPRAY INSPECTOR] - As Needed (Patient may follow-up with Conner Sun PA-C or Dr. Kwesi Stone at [facility] on an as-needed basis following discharge.) Josue Meier DO [Primary Care Provider] - 09/03/19 1:30 pm (Monday) Mitchel Liu MD [STAFF PHYSICIAN] - 09/05/19 1:00 pm ( -please arrive 15mins early for paperwork) Patient Instructions/Handouts: Chest Pain (DC) Activity/Diet/Wound Care/Special Instructions: CBC-1 week Discharge Disposition: HOME SELF-CARE
== END 2019-08-26 15:38 | disposition home or self-care (01) | DRG 378 ==
LOC: EC 07:34 → 3SCARD 10:36
PROVIDERS: ADMIT Hospitalist; ATTEND Hospitalist
PROC: 0DB98ZX Excision of Duodenum, Via Natural or Artificial Opening Endoscopic, Diagnostic (ICD-10-PCS; principal; 2019-08-26 07:30)
PROC: 0DB78ZX Excision of Stomach, Pylorus, Via Natural or Artificial Opening Endoscopic, Diagnostic (ICD-10-PCS; 2019-08-26 07:30)
DX: K29.01 Acute gastritis with bleeding (principal); J44.1 Chronic obstructive pulmonary disease with (acute) exacerbation; J98.11 Atelectasis; D64.9 Anemia, unspecified; E78.5 Hyperlipidemia, unspecified; I08.1 Rheumatic disorders of both mitral and tricuspid valves; I27.20 Pulmonary hypertension, unspecified; R07.89 Other chest pain; M81.0 Age-related osteoporosis without current pathological fracture; R13.10 Dysphagia, unspecified; Z79.01 Long term (current) use of anticoagulants; Z79.82 Long term (current) use of aspirin; Z79.899 Other long term (current) drug therapy; Z80.0 Family history of malignant neoplasm of digestive organs; Z80.8 Family history of malignant neoplasm of other organs or systems; Z86.73 Personal history of transient ischemic attack (TIA), and cerebral infarction without residual deficits; Z87.891 Personal history of nicotine dependence; Z90.710 Acquired absence of both cervix and uterus; Z95.0 Presence of cardiac pacemaker; R59.0 Localized enlarged lymph nodes; Z53.09 Procedure and treatment not carried out because of other contraindication; Z87.440 Personal history of urinary (tract) infections; I44.1 Atrioventricular block, second degree; Z98.42 Cataract extraction status, left eye; Z98.41 Cataract extraction status, right eye
CPT/HCPCS: 36415; 43239; 45378; 71046; 72100; 80053; 80061; 81001; 82607; 82728; 82746; 83540; 83550; 83735; 84466; 84484; 85025; 85027; 85045; 85379; 85610; 85730; 88305; 93005; 96374; 96375; 96376; 99291

== ENCOUNTER → 2019-09-02 | Outpatient (CLI) | payer MEDICARE, OTHER ==
[2019-09-02 17:25] LABS: HCT 24.2 % (34.0-46.0); Hypochromasia Marked; MCH 26.3 pg (25.0-35.0); MCHC 28.8 g/dL (31.0-37.0); Mean Platelet Volume 7.3; Poikilocytosis Slight; RBC 2.65 m/uL (3.80-5.40); RDW 15.3 % (11.5-15.5); WBC 15.6 k/uL (3.8-10.6)
[2019-09-02 17:26] LABS: MCV 91.5 fL (80.0-100.0); Platelet Count 757 k/uL (150-450)
== END | disposition home or self-care (01) ==
LOC: LABWHC1 15:20
PROVIDERS: ATTEND Hospitalist
DX: D64.9 Anemia, unspecified (principal)
CPT/HCPCS: 36415; 85027